=== PATIENT | female | born 1940 | race Caucasian/White ===

== ENCOUNTER → 2017-12-22 09:25 | Outpatient (CLI) | payer MEDICARE, OTHER, SELFPAY ==
[2017-12-22 11:32] LABS: Amphetamine Urine VISTA NEGATIVE (<1000 ng/mL); Barbiturate Urine VISTA NEGATIVE (< 200 ng/mL); Benzodiazepine Urine VISTA NEGATIVE (< 200 ng/mL); Cocaine Urine VISTA NEGATIVE (< 300 ng/mL); Ecstacy Urine VISTA NEGATIVE (< 500 ng/mL); Methadone Urine VISTA NEGATIVE (< 300 ng/mL); PCP Urine VISTA NEGATIVE (< 25 ng/mL); THC Urine VISTA NEGATIVE (< 50 ng/mL); Vista UDS pH Range 6
== END ==
PROVIDERS: Family Provider Family Medicine Geriatric Medicine; PCP Family Medicine Geriatric Medicine; Visit Provider Anesthesiology Pain Medicine
DX: F11.20 Opioid dependence, uncomplicated (principal)
CPT/HCPCS: 80307

== ENCOUNTER → 2018-02-25 15:38 | Outpatient (CLI) | payer MEDICARE, OTHER, SELFPAY | PROVIDERS: Family Provider Family Medicine Geriatric Medicine; PCP Family Medicine Geriatric Medicine; Visit Provider Dermatology | DX: L30.9 Dermatitis, unspecified (principal) | CPT/HCPCS: 36415 ==

== ENCOUNTER → 2018-03-13 13:53 | Outpatient (CLI) | payer MEDICARE, OTHER, SELFPAY | PROVIDERS: Family Provider Family Medicine Geriatric Medicine; PCP Family Medicine Geriatric Medicine; Visit Provider Dermatology | DX: L30.9 Dermatitis, unspecified (principal) ==

== ENCOUNTER → 2018-03-26 14:10 | Outpatient (CLI) | payer MEDICARE, OTHER, SELFPAY ==
--- NOTE | 2018-03-26 14:10 | DT_ITS ---
This patient was seen during an EMR downtime March 23, 2018 - March 30, 2018. This patient may have a combination of paper and electronic documentation or all paper documentation. All documentation is viewable within the e-chart portion of [facility] for each patient visit.
[2018-03-31 05:22] LABS: ALB/GLOB Ratio 1.1 RATIO (0.9-2.4); AST(SGOT) 17 U/L (15-37); Alanine Aminotransfer ALT/SGPT 29 U/L (13-56); Albumin, Serum 3.5 g/dL (3.2-5.0); Alkaline Phosphatase 41 U/L (45-117); BUN 26 mg/dL (7-18); BUN/Creat Ratio 24.1 RATIO (10-20); Calcium,Total 8.5 mg/dL (8.5-10.1); Creatinine, Serum 1.08 mg/dL (0.55-1.02); EST Glomerular Filtration Rate 53 mL/min (>60); Est Glom Filt Rate - Afr Amer 64 mL/min (>60); Globulin 3.3 g/dL (2.2-4.2); Glucose 87 mg/dL (74-106); Potassium 4.3 mmol/L (3.5-5.1); Protein, Total 6.8 g/dL (6.4-8.2); Sodium Level 142 mmol/L (136-145)
[2018-03-31 05:23] LABS: Anion Gap 8 (5-15); Chloride 106 mmol/L (98-107); Thyroid Stim Hormone (TSH) 1.12 uIU/mL (0.358-3.74)
[2018-03-31 05:47] LABS: Hematocrit 40.6 % (37-47); Mean Corpuscular Volume 93.8 fL (81-99); Red Blood Count 4.33 M/mm3 (4.2-5.4); White Blood Count 12.2 K/mm3 (4.4-11.0)
[2018-03-31 05:48] LABS: Absolute Lymphocyte Count 2.98 X10^3/ul (0.83-4.51); Absolute Neutrophil Count 8.1 X10^3/uL (2.0-7.7); Basophil% 0.1 % (0-1); Eosinophil# 0.13 X10^3/uL; Eosinophils% 1.1 % (0-5); Lymphocyte # 2.98 X10^3/ul (4.0); Lymphocyte % 24.4 % (19-41); Mean Platelet Vol. 9.6 fl (6.2-12.0); Monocyte# 0.96 X10^3/uL; Monocyte% 7.8 % (0-10); Neutrophil # 8.09 X10^3/uL (2.7-7.7); Neutrophil % 66.1 % (47-70); POSITIVE COUNT NO; POSITIVE DIFFERENTIAL NO; POSITIVE MORPHOLOGY NO; Platelet Count 210 K/mm3 (150-450); RBC Distribution Width CV 16.4 % (11.6-14.6); RBC Distribution Width SD 56.3 fl (35.1-43.9)
[2018-03-31 05:49] LABS: Basophil# 0.01 X10^3/uL
[2018-03-31 09:43] LABS: Vitamin D,25 Hydroxy 22.1 ng/mL (29.95-100.01)
== END ==
PROVIDERS: Family Provider Family Medicine Geriatric Medicine; PCP Family Medicine Geriatric Medicine; Visit Provider Family Medicine Geriatric Medicine
DX: E11.9 Type 2 diabetes mellitus without complications (principal); E55.9 Vitamin D deficiency, unspecified; I10 Essential (primary) hypertension
CPT/HCPCS: 36415; 80053; 82306; 84443; 85025

== ENCOUNTER → 2018-09-24 10:21 | Outpatient (CLI) | payer MEDICARE, OTHER, SELFPAY ==
[2018-09-24 12:37] LABS: Absolute Lymphocyte Count 1.91 X10^3/ul (0.83-4.51); Absolute Neutrophil Count 3.4 X10^3/uL (2.0-7.7); Basophil# 0.01 X10^3/uL; Basophil% 0.2 % (0-1); Eosinophil# 0.15 X10^3/uL; Eosinophils% 2.5 % (0-5); Hematocrit 39.1 % (37-47); Hemoglobin 12.5 g/dl (12.0-15.0); Lymphocyte # 1.91 X10^3/ul (4.0); Lymphocyte % 31.8 % (19-41); Mean Corpuscular Hgb 30.2 pg (27.0-32.0); Mean Corpuscular Volume 94.4 fL (81-99); Mean Platelet Vol. 9.9 fl (6.2-12.0); Monocyte# 0.52 X10^3/uL; Monocyte% 8.7 % (0-10); Neutrophil % 56.6 % (47-70); Platelet Count 228 K/mm3 (150-450); RBC Distribution Width CV 14.4 % (11.6-14.6); Red Blood Count 4.14 M/mm3 (4.2-5.4)
[2018-09-24 12:39] LABS: POSITIVE COUNT NO; POSITIVE DIFFERENTIAL NO; POSITIVE MORPHOLOGY NO
[2018-09-24 12:52] LABS: Vitamin D,25 Hydroxy 25.7 ng/mL (29.95-100.01)
[2018-09-24 13:02] LABS: ALB/GLOB Ratio 1.1 RATIO (0.9-2.4); AST(SGOT) 18 U/L (15-37); Alanine Aminotransfer ALT/SGPT 23 U/L (13-56); Albumin, Serum 3.7 g/dL (3.2-5.0); Alkaline Phosphatase 47 U/L (45-117); Anion Gap 8 (5-15); BUN 14 mg/dL (7-18); BUN/Creat Ratio 15.6 RATIO (10-20); Calcium,Total 8.8 mg/dL (8.5-10.1); Chloride 105 mmol/L (98-107); EST Glomerular Filtration Rate 65 mL/min (>60); Est Glom Filt Rate - Afr Amer 79 mL/min (>60); Globulin 3.3 g/dL (2.2-4.2); Glucose 88 mg/dL (74-106); Potassium 4.1 mmol/L (3.5-5.1); Sodium Level 142 mmol/L (136-145); Thyroid Stim Hormone (TSH) 0.88 uIU/mL (0.358-3.74)
== END ==
PROVIDERS: Family Provider Family Medicine Geriatric Medicine; PCP Family Medicine Geriatric Medicine; Visit Provider Family Medicine Geriatric Medicine
DX: E11.9 Type 2 diabetes mellitus without complications (principal); E55.9 Vitamin D deficiency, unspecified; I10 Essential (primary) hypertension
CPT/HCPCS: 36415; 80053; 82306; 84443; 85025

== ENCOUNTER → 2018-12-01 07:36 | Outpatient (CLI) | payer MEDICARE, OTHER, SELFPAY ==
--- NOTE | 2018-12-01 07:39 | BI_ITS ---
MAMMOGRAPHY - BILATERAL SCREENING REASON FOR EXAM: Female, 77 years old. Routine annual screening examination. PERTINENT HISTORY: Sister with breast cancer. Remote left excisional breast biopsy and stereotactic breast biopsies. TECHNIQUE: Digital bilateral breast tom (3D mammographic acquisition) in the CC and MLO projections. 2-D mediolateral oblique (MLO) and craniocaudad (CC) views of both breasts were obtained. CAD: Full Field Digital Mammography with Computer Added Detection was performed. COMPARISON: Comparison is made with prior study dated November 04, 2017 and October 17, 2016. FINDINGS: Breast Composition: There are scattered areas of fibroglandular density. There are no dominant masses or suspicious calcifications. A tissue clip marker is seen in the upper lateral portion of the left breast. No other significant abnormalities are identified. There has been no significant change since the prior study. BI/SCREENING MAMM (CAD), BILAT IMPRESSION: Stable bilateral screening mammogram. Yearly follow-up mammogram recommended. (A) ASSESSMENT CATEGORY: BIRADS Category 2: Benign. A letter regarding these results will be sent to the patient by the facility within 30 days. Approximately 10% of breast cancers are not detected by mammography. A normal mammogram should not delay biopsy of a clinically suspicious abnormality. [id number] Electronically Signed: Nolan Erwin MD at 9:05 EST , Service support ,
== END ==
PROVIDERS: Family Provider Family Medicine Geriatric Medicine; PCP Family Medicine Geriatric Medicine; Referring Provider Family Medicine Geriatric Medicine; Visit Provider Family Medicine Geriatric Medicine
DX: Z12.31 Encounter for screening mammogram for malignant neoplasm of breast (principal)
CPT/HCPCS: 77063; 77067

== ENCOUNTER → 2018-12-03 09:49 | Outpatient (CLI) | payer MEDICARE, OTHER, SELFPAY ==
[2018-12-03 11:11] LABS: Amphetamine Urine VISTA NEGATIVE (<1000 ng/mL); Barbiturate Urine VISTA NEGATIVE (< 200 ng/mL); Benzodiazepine Urine VISTA NEGATIVE (< 200 ng/mL); Cocaine Urine VISTA NEGATIVE (< 300 ng/mL); Ecstacy Urine VISTA NEGATIVE (< 500 ng/mL); Methadone Urine VISTA NEGATIVE (< 300 ng/mL); PCP Urine VISTA NEGATIVE (< 25 ng/mL); THC Urine VISTA NEGATIVE (< 50 ng/mL); Vista UDS pH Range 5
== END ==
PROVIDERS: Family Provider Family Medicine Geriatric Medicine; PCP Family Medicine Geriatric Medicine; Referring Provider Anesthesiology Pain Medicine; Visit Provider Anesthesiology Pain Medicine
DX: F11.20 Opioid dependence, uncomplicated (principal)
CPT/HCPCS: 80307

== ENCOUNTER → 2019-03-29 | Outpatient (CLI) | payer MEDICARE, OTHER, SELFPAY ==
[2019-03-29 14:05] LABS: Absolute Lymphocyte Count 2.04 X10^3/ul (0.83-4.51); Absolute Neutrophil Count 3.3 X10^3/uL (2.0-7.7); Basophil# 0.02 X10^3/uL; Basophil% 0.3 % (0-1); Eosinophil# 0.14 X10^3/uL; Eosinophils% 2.3 % (0-5); Hematocrit 36.3 % (37-47); Hemoglobin 11.8 g/dl (12.0-15.0); Lymphocyte # 2.04 X10^3/ul (4.0); Lymphocyte % 34.2 % (19-41); Mean Corp Hgb Conc 32.5 g/gl (32-36); Mean Corpuscular Hgb 29.4 pg (27.0-32.0); Mean Corpuscular Volume 90.5 fL (81-99); Mean Platelet Vol. 10.2 fl (6.2-12.0); Monocyte# 0.48 X10^3/uL; Neutrophil # 3.28 X10^3/uL (2.7-7.7); Platelet Count 207 K/mm3 (150-450); RBC Distribution Width CV 14.1 % (11.6-14.6); RBC Distribution Width SD 46.7 fl (35.1-43.9); Red Blood Count 4.01 M/mm3 (4.2-5.4)
[2019-03-29 14:09] LABS: POSITIVE COUNT NO; POSITIVE DIFFERENTIAL NO; POSITIVE MORPHOLOGY NO
[2019-03-29 14:35] LABS: ALB/GLOB Ratio 1.2 RATIO (0.9-2.4); AST(SGOT) 18 U/L (15-37); Alanine Aminotransfer ALT/SGPT 21 U/L (13-56); Albumin, Serum 3.6 g/dL (3.2-5.0); Alkaline Phosphatase 47 U/L (45-117); Anion Gap 7 (5-15); BUN 21 mg/dL (7-18); BUN/Creat Ratio 20.2 RATIO (10-20); Calcium,Total 8.9 mg/dL (8.5-10.1); Chloride 105 mmol/L (98-107); Creatinine, Serum 1.04 mg/dL (0.55-1.02); EST Glomerular Filtration Rate 55 mL/min (>60); Est Glom Filt Rate - Afr Amer 66 mL/min (>60); Globulin 3.1 g/dL (2.2-4.2); Glucose 104 mg/dL (74-106); Potassium 3.9 mmol/L (3.5-5.1); Protein, Total 6.7 g/dL (6.4-8.2); Sodium Level 140 mmol/L (136-145); Thyroid Stim Hormone (TSH) 0.77 uIU/mL (0.358-3.74); Vitamin D,25 Hydroxy 31.4 ng/mL (29.95-100.01)
== END | disposition home or self-care (01) ==
LOC: POLAB3 13:41
PROVIDERS: Family Provider Family Medicine Geriatric Medicine; PCP Family Medicine Geriatric Medicine; Visit Provider Family Medicine Geriatric Medicine
DX: E11.9 Type 2 diabetes mellitus without complications (principal); E55.9 Vitamin D deficiency, unspecified; I10 Essential (primary) hypertension
CPT/HCPCS: 36415; 80053; 82306; 84443; 85025

== ENCOUNTER → 2019-04-05 | Outpatient (CLI) | payer MEDICARE, OTHER, SELFPAY ==
--- NOTE | 2019-04-05 13:51 | CT_ITS ---
STUDY: LOW DOSE CT LUNG CANCER SCREENING REASON FOR EXAM: Female, 78 years old. TOBACCO ABUSE 3PPWEEK X40 YEARS RADIATION DOSAGE (If Supplied By Facility): CTDIvol = ( 3.02 ) mGy, DLP = ( 95.15 ) mGycm TECHNIQUE: No contrast was administered. Low dose technique was utilized (average mAS-38 and kVp 120). 1.25 mm axial source images with a slice interval of 1.25-mm were reconstructed in lung windows. 2.5 mm axial source images with a slice interval of 2.5-mm were reconstructed in lung windows. 5.0 mm axial source images with a slice interval of 5.0-mm were reconstructed in soft tissue windows. Nodule measured using lung windows on PACS and/or independent workstation with automated measurement of minimum and maximum diameter. Nodule measurement reported as average diameter rounded to the nearest whole number. Growth is defined as an increase ins size of greater than 1.5 mm. COMPARISON: None. NODULES: There is hyperinflation both lungs suggesting COPD. Subsegmental atelectases are noted in the right and left lung bases. There is no demonstrated pleural abnormality. Normal heart and pericardium. Normal mediastinum. Normal hilar regions. Normal unenhanced pulmonary arteries. Normal aorta arch and descending thoracic aorta. Normal osseous structures. There is no demonstrated abnormality of the visualized upper abdomen. CT/Low Dose CT Lung Screening IMPRESSION: Lung-RADS category 2. Benign findings. Recommendation: Routine screening CT scan in one year. IMPORTANT NOTES FOR USE: ACR Lung-RADS Version 1.0 Assessment Categories Release Date: February 14, 2014 Category: Coded 0-4 bases on nodule(s) with highest degree of suspicion. Negative screen is defined as categories 1 and 2; a positive screen is defined as categories 3 and 4. Category 3 and 4A nodules that are unchanged on interval CT should be coded as category 2, and individuals returned to screening in 12 months. Category 4X: Category 3 or 4 nodules with additional imaging findings that increase the suspicion of lung cancer, such as spiculation, GGN that doubles in size in 1 year, enlarged lymph notes, etc. Category Modifiers: S (significant finding unrelated to lung cancer) and C (prior history of treated lung cancer) may be added to the 0-4 Lung-RADS Electronically Signed: Ti Espinal, at 23:47 EDT Tel , Service support ,
== END | disposition home or self-care (01) ==
LOC: CT 13:49
PROVIDERS: Family Provider Family Medicine Geriatric Medicine; PCP Family Medicine Geriatric Medicine; Referring Provider Family Medicine Geriatric Medicine; Visit Provider Family Medicine Geriatric Medicine
DX: Z87.891 Personal history of nicotine dependence (principal)
CPT/HCPCS: G0297

== ENCOUNTER → 2019-04-19 | Outpatient (CLI) | payer MEDICARE, OTHER, SELFPAY ==
[2019-04-21 16:07] LABS: RNP Ab <0.2 AI (0.0-0.9); SJOGREN'S Anti-SS-A test < 0.2 AI (0.0-0.9); SJOGREN'S Anti-SS-B test < 0.2 AI (0.0-0.9); Smith Ab <0.2 AI (0.0-0.9)
[2019-04-23 17:05] LABS: Anti-Nuclear Antibody Test Negative (.); Anti-dsDNA Ab 1 IU/mL (0-9)
== END | disposition home or self-care (01) ==
LOC: LAB 15:19
PROVIDERS: Family Provider Family Medicine Geriatric Medicine; PCP Family Medicine Geriatric Medicine; Referring Provider Dermatology; Visit Provider Dermatology
DX: K11.7 Disturbances of salivary secretion (principal); L43.8 Other lichen planus
CPT/HCPCS: 36415; 86038; 86225; 86235

== ENCOUNTER → 2019-05-14 | Outpatient (CLI) | payer MEDICARE, OTHER, SELFPAY ==
[2019-05-07 11:41] VITALS: BMI 26.4
--- NOTE | 2019-05-14 08:49 | BI_ITS ---
MAMMOGRAPHY - BILATERAL DIAGNOSTIC REASON FOR EXAM: Female, 78 years old. Left lateral breast pain PERTINENT HISTORY: Previous excisional biopsy in the left breast TECHNIQUE: Digital examination. Mediolateral oblique (MLO) and craniocaudad (CC) views of both breasts were obtained. CAD: COMPARISON: 12/01/18 FINDINGS: Breast Composition: There are scattered areas of fibroglandular density. There are no dominant masses or suspicious calcifications. No other significant abnormalities are identified. BI/DIAG MAMM W/CAD, BILAT IMPRESSION: Stable bilateral diagnostic mammogram. ASSESSMENT CATEGORY: BIRADS Category 2: Benign. A letter regarding these results will be sent to the patient by the facility within 30 days. FOLLOW UP RECOMMENDATION: Yearly follow up mammogram recommended. (A) Approximately 10% of breast cancers are not detected by mammography. A normal mammogram should not delay biopsy of a clinically suspicious abnormality. Electronically Signed: Yfn Marinelli MD at 11:09 EDT , Service support ,
== END | disposition home or self-care (01) ==
LOC: OPBI 08:47
PROVIDERS: Family Provider Family Medicine Geriatric Medicine; PCP Family Medicine Geriatric Medicine; Referring Provider Obstetrics & Gynecology; Visit Provider Obstetrics & Gynecology
DX: N64.4 Mastodynia (principal)
CPT/HCPCS: 77066

== ENCOUNTER → 2019-05-28 | Outpatient (CLI) | payer MEDICARE, OTHER, SELFPAY ==
[2019-05-07 11:41] VITALS: BMI 26.4
--- NOTE | 2019-05-28 13:45 | MRI_ITS ---
STUDY: MRI LEFT MIDFOOT WITHOUT CONTRAST REASON FOR EXAM: Female, 78 years old. Osteoarthritis. Posterior tibialis tendinitis. TECHNIQUE: Standardized fat and water weighted pulse sequences were obtained in all 3 orthogonal planes. COMPARISON: Correlation with ankle MRI from the June 02, 2019. FINDINGS: Please see dedicated ankle dictation for additional evaluation. Fluid at the master knot of Serafin (axial image 24 series 8) with proximal hallucis longus tenosynovitis (axial image 18 series 6). Mild/moderate posterior tibialis tendinosis without tear. Normal extensor tendons. Tiny fluid collection at the peroneus retinaculum (axial image 24 series 8). Mild peroneus longus tendinosis with tenosynovitis at the undersurface of the foot (axial images 9 through 12 series 8). Normal peroneus brevis tendon. Ligamentous structures remain intact. Normal calcaneocuboid articulation. Normal talonavicular reticulation. Mild navicular cuneiform joint arthrosis. Mild tarsometatarsal joint arthrosis. Moderate/severe first metatarsophalangeal joint arthrosis. Remaining visualized metatarsophalangeal joints unremarkable. No acute fracture, dislocation or osseous destruction. Middle cuneiform bone marrow edema/contusion. Chronic dorsal navicular avulsion/ossicle. Trace talonavicular joint arthrosis with tiny dorsal ganglion cyst. Minimal subtalar joint fluid with mild focal posterior outpouching. Mild soft tissue swelling. Varicose veins. Moderate plantar fascial thickening without acute edema or tear. Large plantar spur. No solid, cystic or lipomatous soft tissue lesions. Normal muscles of the midfoot/hindfoot. MRI/Lower Ext/No Jt/w/o IMPRESSION: Mild/moderate PTT tendinosis without tear Large plantar spur with chronic interfascial thickening (no acute edema or tear) Middle cuneiform bone marrow edema/contusion Multiple tarsal tunnel varicose veins suggesting potential tarsal tunnel syndrome Mild sinus tarsitis/subtalar ligament sprains with mild sinus Tarsi syndrome Moderate/severe proximal flexor hallucis longus tenosynovitis Mild/moderate osteoarthritic features Mild soft tissue swelling with small volume joint effusions Electronically Signed: Isiah Samayoa DO at 11:17 EDT Tel , Service support ,
== END | disposition home or self-care (01) ==
LOC: MRI 13:11
PROVIDERS: Family Provider Family Medicine Geriatric Medicine; PCP Family Medicine Geriatric Medicine; Referring Provider Podiatrist; Visit Provider Podiatrist
DX: M76.822 Posterior tibial tendinitis, left leg (principal); M19.072 Primary osteoarthritis, left ankle and foot
CPT/HCPCS: 73718

== ENCOUNTER → 2019-06-02 | Outpatient (CLI) | payer MEDICARE, OTHER, SELFPAY ==
[2019-05-07 11:41] VITALS: BMI 26.4
--- NOTE | 2019-06-02 09:34 | MRI_ITS ---
STUDY: MRI LEFT ANKLE WITHOUT CONTRAST REASON FOR EXAM: Female, 78 years old. Left ankle pain. Plantar surface pain. TECHNIQUE: Standardized fat and water weighted pulse sequences were obtained in all 3 orthogonal planes. COMPARISON: None. FINDINGS: Multiple varicose veins extending into the tarsal tunnel (axial images 6 through 16 series 10). Moderate/severe proximal flexor hallucis longus tenosynovitis (axial image 10 series 10). Normal posterior tibialis tendon. Normal flexor digitorum tendon. Normal peroneus longus/brevis tendons. Normal extensor tendons. Normal Achilles tendon. Moderate chronic plantar fascial thickening. Large plantar spur. No significant edema at the plantar calcaneal insertion. Plantar fascia remains intact. Normal muscles of the midfoot/hindfoot. Mild tibiotalar joint arthrosis. Normal subtalar articular cartilage. Normal calcaneocuboid articular cartilage. Dorsal navicular ossicle versus chronic avulsion (sagittal image 10 series 7). Particular cartilage preserved at the talonavicular articulation. Mild navicular cuneiform joint arthrosis. Mild tarsometatarsal joint arthrosis. Talar dome intact. No acute fracture line. No dislocation. No cortical destruction. Bone marrow edema/contusion at the medial cuneiform (axial images 11 and 12 series 10). Syndesmotic ligaments intact. Lateral ligament complex intact. Normal deltoid ligament. Normal spring ligament. Mild sinus Tarsi/subtalar ligament sprains with mild sinus Tarsi syndrome. Normal Lisfranc ligament. Mild soft tissue swelling. No solid, cystic or lipomatous soft tissue lesions. Small volume tibiotalar/subtalar joint effusion. MRI/Lower Ext Joint Only (Routine) IMPRESSION: Large plantar spur with chronic interfascial thickening (no acute edema or tear) Middle cuneiform bone marrow edema/contusion Multiple tarsal tunnel varicose veins suggesting potential tarsal tunnel syndrome Mild sinus tarsitis/subtalar ligament sprains with mild sinus Tarsi syndrome Moderate/severe proximal flexor hallucis longus tenosynovitis Mild midfoot osteoarthritic features Mild soft tissue swelling with small volume joint effusions Electronically Signed: Isiah Samayoa DO at 10:59 EDT Tel , Service support ,
== END | disposition home or self-care (01) ==
LOC: MRI 09:32
PROVIDERS: Family Provider Family Medicine Geriatric Medicine; PCP Family Medicine Geriatric Medicine; Referring Provider Podiatrist; Visit Provider Podiatrist
DX: M76.822 Posterior tibial tendinitis, left leg (principal)
CPT/HCPCS: 73721

== ENCOUNTER → 2019-06-16 | Outpatient (CLI) | payer MEDICARE, OTHER, SELFPAY ==
[2019-05-07 11:41] VITALS: BMI 26.4
[2019-06-16 15:48] LABS: Amphetamine Urine VISTA NEGATIVE (<1000 ng/mL); Barbiturate Urine VISTA NEGATIVE (< 200 ng/mL); Benzodiazepine Urine VISTA NEGATIVE (< 200 ng/mL); Cocaine Urine VISTA NEGATIVE (< 300 ng/mL); Ecstacy Urine VISTA NEGATIVE (< 500 ng/mL); Methadone Urine VISTA NEGATIVE (< 300 ng/mL); PCP Urine VISTA NEGATIVE (< 25 ng/mL); THC Urine VISTA NEGATIVE (< 50 ng/mL); Vista UDS pH Range 5
== END | disposition home or self-care (01) ==
LOC: LAB 14:05
PROVIDERS: Family Provider Family Medicine Geriatric Medicine; PCP Family Medicine Geriatric Medicine; Referring Provider Anesthesiology Pain Medicine; Visit Provider Anesthesiology Pain Medicine
DX: F11.20 Opioid dependence, uncomplicated (principal)
CPT/HCPCS: 80307

== ENCOUNTER 2019-07-08 14:00 | Outpatient (RCR) | payer MEDICARE, OTHER, SELFPAY ==
[2019-05-07 11:41] VITALS: BMI 26.4
--- NOTE | 2019-06-17 12:00 | HP.PTEVAL_ITS ---
Patient's Visit Information JOANNA PRITCHARD is a 78 year old F referred to Physical Therapy by Edmar Vargas DPM with a diagnosis of Posterior tibial tendonitis/tendonosis. Date of Evaluation: 06/17/19 Physical Therapist: Manfred Newsome DPT - Visit Plan Frequency: 2x /Week Duration: 4-6 Weeks Plan: Start with DN, US, stretching. Progress to eccentric strengthening once symptoms have started to reduce. - Subjective Findings: Pt. is here today for her initial evaluation with diagnosis of L posterior tibial tendonitis. Pt. reports having increased pain for ~6 weeks. No mech of injury. Pt. denies N/T in either LEs. Pt. reports having pain starting in her medial calf and going down her leg to her arch of her foot. Pt. reports not doing any exercises for her ankle. Pt. does walk ~3 miles a day. Pt. reports increased pain with standing and walking, but no pain at rest. No pain with sleeping. Pt. has had an xray showing arthritis in her foot and ankle. Pt. reports having an injection which did not help. Pt. is hopeful to reduce symptoms in order to get back to cooking/standing and walking without increase in symptoms. - Pain L ankle Pain Intensity (Out of 10): 3 Pain Intensity Range: 1, 6 - Objective POSTURE: Pt. has normal wt. shift in stance. Pt. has over pronation in stnace and worse in SLS. PALPATION: Pt. has increased tenderness along post tib tendon and insertion. Pt. has pain into post tib muscle as well. NEURO: normal throughout bilateral LEs. ROM: L ankle- DF 10deg, PF 48deg, INV 18deg, EVR 16deg. MMT: Pt. has 4+/5 throughout ankle musculature, but has increased pain with PF+INV. GAIT: Pt. has over pronation with ambulation without shoes one. Pt. has increased L ankle EVR in stance as well. STAIRS: no issues, early heel off with descending. - Goals Goal 1:: Pt. to be I with HEP. Goal Time Frame: 4-6 Weeks Goal 2:: Pt. to ambulate household distances without increase in symptoms. Goal Time Frame: 4-6 Weeks Goal 3:: Pt. to walk upto 3 miles for recreational exercises without increase in symptoms. Goal Time Frame: 4-6 Weeks Goal 4:: Pt. to have increased L ankle strength by 1/2 grade of all effected musculature. Goal Time Frame: 4-6 Weeks Goal 5:: Pt. to have increased L ankle ROM symmetrical to R. Goal Time Frame: 4-6 Weeks - Rehabilitation Potential Physical Therapy Diagnosis: Pt. appears to have L posterior tibial tendonosis. Pt. has increased symptoms with palpation along post tib tendon, increased navicular drop in SLS and over prontation with gait.Pt. would benefit from PT to decrease symptoms, promote ankle stability and increase intrinsic foot strengt hening. Rehabilitation Potential: Good - Anticipated Interventions Patient/Client Instruction: Educate patient on: Condition, Plan of Care, Risk Factors, Benefits of Fitness Program For the Purpose of:: To facilitate caregiver knowledge, To improve self management, To prevent re-injury, To improve ability to perform tasks related to life management, To improve tolerance to ADL's Therapeutic Exercise to Include: Strength training, Power training, Endurance training, Balance training, Gait and locomotor training, Passive ROM, Active ROM, Scapular Strength/Stabilization For the Purpose of:: To decrease pain, To increase ROM, To improve nutrient delivery to tissue, To increase oxygenation perfusion, To improve muscle performance and motor function, To improve gait and locomotor functions, To improve health of tissue, To decrease soft tissue restriction Manual Therapy Techniques to Include: Mobilization, Functional dry needling, Soft tissue mobilization For the Purpose of:: To decrease pain, To decrease swelling/inflammation, To increase ROM, To improve nutrient delivery to tissue, To increase oxygenation perfusion, To improve muscle performance and motor function Cryotherapy (ice pack, ice massage): Yes Ultrasound (thermal/non thermal): Yes Thank you for the opportunity to evaluate your patient. For Medicare and Medicare HMO plans, please review the plan of care and approve it. It will need to be FAXED BACK to us at [phone] for Medicare purposes. For Medicare only, by signing this I certify the plan of care. Please let me know if there are questions or concerns regarding this plan of care. Physician Signature: Date:
--- NOTE | 2019-11-19 08:13 | HP.PTDCNRP_ITS ---
HP - Discharge Summary (1) - Patient Information JOANNA PRITCHARD was seen in my office for initial evaluation on 06/17/19. The following Plan of Care was established for this patient: Initial Frequency: 2x /Week Initial Duration: 4-6 Weeks - Anticipated Interventions Patient/Client Instruction: Educate patient on: Condition, Plan of Care, Risk Factors, Benefits of Fitness Program For the Purpose of:: To facilitate caregiver knowledge, To improve self management, To prevent re-injury, To improve ability to perform tasks related to life management, To improve tolerance to ADL's Therapeutic Exercise to Include: Strength training, Power training, Endurance training, Balance training, Gait and locomotor training, Passive ROM, Active ROM, Scapular Strength/Stabilization For the Purpose of:: To decrease pain, To increase ROM, To improve nutrient delivery to tissue, To increase oxygenation perfusion, To improve muscle performance and motor function, To improve gait and locomotor functions, To improve health of tissue, To decrease soft tissue restriction Manual Therapy Techniques to Include: Mobilization, Functional dry needling, Soft tissue mobilization For the Purpose of:: To decrease pain, To decrease swelling/inflammation, To increase ROM, To improve nutrient delivery to tissue, To increase oxygenation pe rfusion, To improve muscle performance and motor function Cryotherapy (ice pack, ice massage): Yes Ultrasound (thermal/non thermal): Yes This patient was last seen in our office 06/17/19. Pertinent comments regarding their Physical therapy will appear below: Pt. did well, she is no longer having any issues. Pt. will be DC from PT at this point in time. At this point I will be discontinuing this patient from physical therapy. I would be happy to see this patient again in the future if found appropriate by the physician. Thank you! Manfred Newsome, SORINT
== END 2019-07-08 19:00 | disposition home or self-care (01) ==
LOC: PT 14:00
PROVIDERS: Family Provider Family Medicine Geriatric Medicine; PCP Family Medicine Geriatric Medicine; Referring Provider Podiatrist; Visit Provider Podiatrist
DX: M76.829 Posterior tibial tendinitis, unspecified leg (principal)
CPT/HCPCS: 97161

== ENCOUNTER → 2019-09-27 14:08 | Outpatient (CLI) | payer MEDICARE, OTHER, SELFPAY ==
[2019-05-07 11:41] VITALS: BMI 26.4
[2019-09-27 16:56] LABS: Absolute Neutrophil Count 3.9 X10^3/uL (2.0-7.7); Basophil# 0.02 X10^3/uL; Basophil% 0.3 % (0-1); Eosinophil# 0.35 X10^3/uL; Hematocrit 37.8 % (37-47); Mean Corp Hgb Conc 31.7 g/dL (32-36); Mean Corpuscular Hgb 29.1 pg (27.0-32.0); Mean Corpuscular Volume 91.5 fL (81-99); Mean Platelet Vol. 9.8 fl (6.2-12.0); Monocyte# 0.63 X10^3/uL; NRBC Flagged by Analyzer 0 % (0-5); Neutrophil # 3.88 X10^3/uL (2.7-7.7); Neutrophil % 55.4 % (47-70); Platelet Count 240 K/mm3 (150-450); RBC Distribution Width CV 14.5 % (11.6-14.6); RBC Distribution Width SD 49.1 fl (35.1-43.9); Red Blood Count 4.13 M/mm3 (4.2-5.4)
[2019-09-27 17:36] LABS: Vitamin D,25 Hydroxy 23.3 ng/mL (29.95-100.01)
[2019-09-27 19:16] LABS: ALB/GLOB Ratio 1.2 RATIO (0.9-2.4); AST(SGOT) 17 U/L (15-37); Alanine Aminotransfer ALT/SGPT 22 U/L (13-56); Albumin, Serum 3.7 g/dL (3.2-5.0); Alkaline Phosphatase 48 U/L (45-117); Anion Gap 7 (5-15); BUN 26 mg/dL (7-18); BUN/Creat Ratio 22.8 RATIO (10-20); Calcium,Total 9.1 mg/dL (8.5-10.1); Chloride 109 mmol/L (98-107); Creatinine, Serum 1.14 mg/dL (0.55-1.02); EST Glomerular Filtration Rate 49 mL/min (>60); Est Glom Filt Rate - Afr Amer 60 mL/min (>60); Globulin 3.1 g/dL (2.2-4.2); Glucose 99 mg/dL (74-106); Potassium 3.7 mmol/L (3.5-5.1); Protein, Total 6.8 g/dL (6.4-8.2); Sodium Level 143 mmol/L (136-145); Thyroid Stim Hormone (TSH) 1.18 uIU/mL (0.358-3.74)
== END ==
PROVIDERS: Family Provider Family Medicine Geriatric Medicine; PCP Family Medicine Geriatric Medicine; Visit Provider Family Medicine Geriatric Medicine
DX: E11.9 Type 2 diabetes mellitus without complications (principal); E55.9 Vitamin D deficiency, unspecified; I10 Essential (primary) hypertension
CPT/HCPCS: 36415; 80053; 82306; 84443; 85025

== ENCOUNTER → 2019-10-29 06:06 | Outpatient (CLI) | payer MEDICARE, OTHER, SELFPAY ==
[2019-10-07 11:50] VITALS: BMI 27.4
--- NOTE | 2019-10-29 06:07 | ECHOD_ITS ---
Reason For Study: CP Procedure This was a 2D Doppler, Color Flow transthoracic echocardiogram. Exam performed in department. Left Ventricle Normal LV size. Left ventricular systolic function is normal. The estimated ejection fraction is 65 %. No evidence for diastolic dysfunction. No regional wall motion abnormalities noted. Right Ventricle Normal RV size. Normal systolic function. Atria Normal left atrium. Normal right atrium. No doppler evidence for ASD. Mitral Valve There is no mitral annular calcification. Normal mitral valve. Trivial mitral valve insufficiency. Tricuspid Valve Normal tricuspid valve. Trivial tricuspid valve insufficiency. Aortic Valve Trisinus/trileaflet aortic valve. Normal aortic valve. Pulmonic Valve The pulmonic valve is not well visualized. Mild (1+) pulmonic valve insufficiency. Great Vessels The aortic root is not well visualized. Pericardium/Pleural No pericardial effusion. MMode/2D Measurements & Calculations LVIDd: 4.0 cm IVSd: 1.3 cm LA dimension: 3.6 cm LVIDs: 2.3 cm LVPWd: 1.1 cm RVDd: 4.3 cm FS: 41.8 % LAV(MOD-bp): 44.8 ml LA A4 area: 19.4 cm2 RA A4 area: 15.3 cm2 LAV(MOD-bp) Indexed: 23.6 ml/m2 LAV(MOD-sp2): 34.4 ml LAV(MOD-sp4): 58.2 ml Time Measurements MV dec time: 0.24 sec Doppler Measurements & Calculations MV E max dima: 64.9 cm/sec Lat Peak E' Dima: 12.6 cm/sec Med Peak E' Dima: 6.0 cm/sec MV A max dima: 75.5 cm/sec E/E' lat: 5.2 E/E' med: 10.8 MV E/A: 0.86 MV V2 max: 82.8 cm/sec MV P1/2t max dima: 71.8 cm/sec Ao V2 max: 105.3 cm/sec MV max P.7 mmHg MV P1/2t: 98.8 msec Ao max P.4 mmHg MV V2 mean: 45.4 cm/sec MV dec slope: 213.0 cm/sec2 MV mean P.97 mmHg MVA(P1/2t): 2.2 cm2 MV V2 VTI: 22.8 cm LV V1 max: 76.6 cm/sec PA V2 max: 103.0 cm/sec LV V1 max P.3 mmHg Interpretation Summary Left ventricular systolic function is normal. The estimated ejection fraction is 65 %. Trivial mitral valve insufficiency. Trivial tricuspid valve insufficiency. Mild (1+) pulmonic valve insufficiency. No evidence for diastolic dysfunction. Ordering Physician: Santos Cervantes Referring Physician: Santos Cervantes Performed By: Jeremy Hopper RCS
--- NOTE | 2019-10-29 12:42 | STRESSREP_ITS ---
Stress Test Report Date: 10-29-2019 Procedure: Exercise tolerance test/imaging study Indications: Chest pain Consent: Per the patient Procedure: The patient exercised on a Mason protocol for 6 minutes completing Stage II achieving a peak heart rate of 144 bpm (100 % predicted maximal heart rate) with a peak blood pressure 172/62 mmHg and a peak MET capacity of 7 METs. The baseline ECG demonstrated sinus bradycardia. The peak exercise ECG demonstrated approximately 1 to 2 mm of horizontal/downsloping ST segment depression in leads II, III, aVF, and V4 through V6 with resolution towards baseline beginning by 1 minute in recovery. There were occasional PACs and repetitive PACs in recovery and a rare PVC in recovery. The functional capacity was considered average. There was no complaint of chest discomfort during exercise or recovery. The examination was discontinued secondary to dyspnea. Impression: 1. Technically adequate (percent predicted maximal heart rate greater than 85%) exercise tolerance test 2. Peak exercise ECG with approximately 1 to 2 mm of horizontal/downsloping ST segment depression in leads II, III, aVF, and V4 through V6 with resolution towards baseline beginning by 1 minute in recovery 3. There were occasional PACs and repetitive PACs in recovery and a rare PVC in recovery 4. Nuclear images pending Myocardial perfusion imaging study: Technique: The patient was injected with 10.8 mCi of technetium 99m Cardiolite and subsequently rest SPECT Cardiolite nuclear imaging was obtained in the horizontal long, vertical long, and short axis views. The patient exercised on a Mason protocol for 6 minutes completing Stage II achieving a peak heart rate of 144 bpm (100 % predicted maximal heart rate) with a peak blood pressure 172/62 mmHg and a peak MET capacity of 7 METs. The patient was injected with 32.5 mCi of technetium 99m Cardiolite and subsequently stress SPECT Cardiolite nuclear imaging was obtained in the horizontal long, vertical long, and short axis views. A gated Cardiolite study at peak stress was obtained. Interpretation: Rest and stress SPECT Cardiolite nuclear imaging status post realignment, normalization, and attenuation correction, demonstrates rest and stress SPECT current nuclear imaging demonstrate an area of diminished tracer uptake near the apical segments and at rest there is also notation of areas of diminished tracer uptake in the distal anterior segments which appear to improve status post stress. There is end systolic thickening and brightening. The gated Cardiolite study demonstrates myocardial thickening and inward wall motion. The reported LVEF is 75 %. Impression: 1. Rest and stress SPECT Cardiolite nuclear imaging demonstrate myocardial perfusion changes appearing compatible with the effects of physiologic apical thinning as well as shifting soft tissue attenuation/artifact being somewhat more prominent at rest as opposed to stress with no myocardial perfusion changes considered diagnostic for associated stress-induced myocardial ischemia. 2. The gated Cardiolite study reports an LVEF of 75 %. This note was generated with [employer] software. It may contain incorrect words, spelling, and punctuation that were not noted in checking the note before signing.
== END ==
PROVIDERS: Family Provider Family Medicine Geriatric Medicine; PCP Family Medicine Geriatric Medicine; Referring Provider Internal Medicine Cardiovascular Disease; Visit Provider Internal Medicine Cardiovascular Disease
DX: R07.9 Chest pain, unspecified (principal)
CPT/HCPCS: 78452; 93017; 93306; A9500; A4216

== ENCOUNTER 2019-11-09 07:47 | Day surgery (SDC) | payer MEDICARE, OTHER, SELFPAY ==
[2019-10-07 11:50] VITALS: BMI 27.4
[2019-11-02 10:46] VITALS: BMI 26.4
--- NOTE | 2019-11-02 10:52 | RAD_ITS ---
STUDY: X-RAY CHEST REASON FOR EXAM: Female, 78 years old. CHEST PAIN. ABNORMAL STRESS TEST. GETTING HEART CATH FRIDAY. TECHNIQUE: PA and lateral views of the chest. COMPARISON: None. FINDINGS: There are minimal streaky fibrotic changes of the left lung base. There is no demonstrated pleural abnormality. Normal size heart. Normal mediastinum and cecilia. Normal visualized pulmonary arteries. There are calcified plaques of the thoracic aorta. Normal visualized thoracic spine. Normal visualized ribs, clavicles, and shoulders. There is no demonstrated abnormality of the visualized soft tissue structures of the upper abdomen. RAD/Chest PA and Lateral IMPRESSION: Calcified plaques of the thoracic aorta. Streaky fibrotic changes of the left lung base. No acute cardiopulmonary disease process is noted. Electronically Signed: Jens Steiner MD at 23:15 EST , Service support ,
[2019-11-02 11:59] LABS: Partial Thromboplast Time 26.9 Seconds (24.1-36.2); Prothrombin Time (Protime)PT. 13.2 SECONDS (11.7-14.9)
[2019-11-02 12:00] LABS: Hematocrit 38.2 % (37-47); Hemoglobin 12.2 g/dL (12.0-15.0); Mean Corp Hgb Conc 31.9 g/dL (32-36); Mean Corpuscular Hgb 29.5 pg (27.0-32.0); Mean Corpuscular Volume 92.5 fL (81-99); Mean Platelet Vol. 9.8 fl (6.2-12.0); Platelet Count 216 K/mm3 (150-450); RBC Distribution Width CV 14.2 % (11.6-14.6); RBC Distribution Width SD 48.2 fl (35.1-43.9); Red Blood Count 4.13 M/mm3 (4.2-5.4); White Blood Count 5.5 K/mm3 (4.4-11.0)
[2019-11-02 12:07] LABS: Anion Gap 3 (5-15); BUN 18 mg/dL (7-18); BUN/Creat Ratio 18.3 RATIO (10-20); Calcium,Total 8.9 mg/dL (8.5-10.1); Chloride 108 mmol/L (98-107); Creatinine, Serum 0.98 mg/dL (0.55-1.02); EST Glomerular Filtration Rate 58 mL/min (>60); Est Glom Filt Rate - Afr Amer 71 mL/min (>60); Glucose 98 mg/dL (74-106); Potassium 3.7 mmol/L (3.5-5.1); Sodium Level 140 mmol/L (136-145)
[2019-11-08 09:41] VITALS: BMI 27.4
--- NOTE | 2019-11-09 08:51 | PCM.HP.BLA ---
<Ivana Pond M - Last Filed: 11/09/19 08:51> History and Physical Date of Admission: 11/09/19 This is a 78-year-old white female who presents today for a heart cath for an abnormal stress test. She recently established with us for concerns of chest discomfort which she describes as somewhat left upper quadrant/left lower chest as well as left facial/jaw discomfort superimposed upon a history of hyperlipidemia and hypertension. She states that she has had episodes in the past where she gets a left upper quadrant/left lower chest sharp discomfort that appears to radiate to her back and transiently take her breath away. These events are random. They are not necessarily associated with nausea, emesis, diaphoresis, or change in her respiratory pattern. They are not associated with any obvious change in her underlying cardiac rate or rhythm and she has had no near syncope or syncope. She states they can be associated with a left facial/left jaw discomfort as if her teeth are going to fall out . She denies any orthopnea or PND. She has not had lower extremity peripheral pitting edema. She notes at other times she may sense a palpitation. She had an ECG through the [facility] system in the past. Based upon her previous ECG that appeared to be dated 01/25/2015 it was interpreted as normal sinus rhythm. She had a follow-up ECG in the office today. She had sinus rhythm with no acute ECG changes. It appears that she had a stress echocardiogram performed through the [facility] on 05-19-2014. At that time according to the report the indication was for an abnormal ECG exercise tolerance test and her examination demonstrated an abnormal ECG on exercise tolerance test with the exercise stress echo being considered negative with the left ventricular systolic function considered normal with an LVEF of 60% with a comment of trivial MR and trivial TR and mild aortic valve sclerosis. Her [facility] medical records suggested that she had a positive stress ECG test which was considered a false positive at the time. She states that she was to have follow-up testing over the years but this was never completed. She underwent a stress test which at peak exercise the ECG had approximately 1 to 2 mm of horizontal/downsloping ST segment depression in leads II, III, aVF, and V4 through V6 with resolution towards baseline beginning by 1 minute in recovery. Nuclear images demonstrated rest and stress SPECT Cardiolite nuclear imaging demonstrate myocardial perfusion changes appearing compatible with the effects of physiologic apical thinning as well as shifting soft tissue attenuation/artifact being somewhat more prominent at rest as opposed to stress with no myocardial perfusion changes considered diagnostic for associated stress-induced myocardial ischemia. 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 Accompanied by: Allergies latex Adverse Reaction (Verified 10/07/19 11:51) Vomiting Medications See chart PFSH Medical History GERD (gastroesophageal reflux disease) (Chronic) Chest pain (Acute) Palpitations (Acute) Mixed hyperlipidemia (Chronic) Essential hypertension (Chronic) Lumbar spinal stenosis (Chronic) Opioid dependence (Chronic) History of benign breast biopsy (Resolved) Small bowel obstruction (Resolved) Surgical History H/O oophorectomy (Resolved) H/O total hysterectomy (Resolved) Hx of cholecystectomy (Resolved) Family History Sister Breast cancer Social History (Updated 10/07/19 @ 12:54 by Santos Cervantes MD) Smoking Status: Former smoker second hand exposure: No alcohol intake: current alcohol intake frequency: a few times a month substance use type: does not use caffeine: Yes Type: coffee Number of servings: 1 seatbelt use: always do you feel safe at home: Yes ROS Const Const: Negative for fatigue, weakness, frequent falls, excessive sweating, weight gain or weight loss Eyes Eyes: Negative for transient loss of vision, blurry vision or change in vision ENT ENT: Positive for dizziness (random while at rest); negative for balance problems Cardio Chest Pain: Yes Character: sharp (radiated to Lt jaw and feels like my teeth are going to fall out) Onset: at rest, exercise Location: other (below the Lt Breast into back) Duration: minutes (1), brief Palpitations: No Edema: None Muscle aches with walking: None Resp Respiratory: Negative for SOB with activity or SOB at rest GI GI: Negative vomiting or vomiting blood/hematemesis : Negative for hematuria Musc Musc: Negative for muscle aches/ myalgia, muscle weakness, joint pain or balance problems Skin Skin: Negative non-healing lesions or rash Neuro Neuro: Positive for dizziness (random while at rest) and lightheadedness (random while at rest); negative for orthostatic symptoms, frequent falls, weakness or blurry vision Turner Hematologic/Lymphatic: Negative for easy bleeding Endo Endo: Negative for fatigue or excessive sweating Psych Psych: Negative for anxiety or depression Allergy Allergy/Immunology: Negative for hives, Negative for rash Cardiology Exam Const Appearance: cooperative, healthy appearing, comfortable, no acute distress, well developed and well groomed Nutritional Appearance: average body habitus Orientation: alert, awake and oriented x3 Head Head: normal to inspection, normocephalic and atraumatic Ears: hearing grossly normal bilaterally Nose: external nose normal Face and Sinus: face symmetric Mouth: oral mucosae normal Teeth and gingiva: fair dentition Eyes Eyelids: eyelids normal Conjunctivae: conjunctivae normal Pupils: PERRL EOM: EOM intact bilaterally Neck Neck: normal visual inspection and full ROM Carotids: normal carotid upstroke Chest Chest inspection: normal inspection of the chest, symmetric chest movement and normal respiratory effort Auscultation: Bilateral: Clear to Auscultation Cardio Palpation: normal PMI Rate: regular rate Rhythm: regular rhythm Heart sounds: S1 normal and S2 normal GI GI: normal to inspection, soft and bowel sounds present Neuro General: alert, awake, oriented x3 and moves all extremities Skin Skin: no rashes or lesions noted Extremities Pulses: Normal: Right Radial Pulse, Left Radial Pulse Lower Extremity Edema: None: Bilateral Psych Psychological: normal affect Assessment & Plan 1. Chest pain, unspecified R07.9 Plan Based upon abnormal stress test and continued chest pain, she will undergo a cardiac cath. She will follow up accordingly after. <Santos Cervantes - Last Filed: 11/09/19 09:39> History and Physical I have re-examined the patient. There are no clinical changes since date of exam.
--- NOTE | 2019-11-09 10:42 | CL.D_ITS ---
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 The risks and benefits of the procedure as well as a full d escription of our services here and current unavailability of surgical backup were fully explained to the patient and/or their significant other prior to the catheterization. The Timeout was completed, verifying the correct patient and procedure. The patient's procedural site was prepped and draped in the usual fashion. Local anesthetic was given subcutaneously to right radial region with Lidocaine 2% . Using a modified Seldinger technique, arterial access was obtained via the right radial artery, a 6 Fr sheath was inserted. Right Coronary Artery selective angiography was then performed in multiple v iews using a 5 Fr. 4.0 Phoenix catheter. Left Coronary Artery selective angiography was performed in mu ltiple views using a 5 Fr. 4.0 Phoenix catheter. Left Ventriculography was performed in LOYA projection using a 5 Fr. Pigtail catheter. LV to AO pullback pressures were then recorded.The arterial sheath was pulled and a TR Band was applied for hemostasis CORONARY ANGIOGRAPHY DOMINANCE: Right Dominant LEFT HEART ASSESSMENT Left Ventricular Ejection Fraction: by LV Gram 55 % Normal LV wall motion Normal Left Ventricular End Diastolic Pressure LVEDP: 12 mmHg LEFT MAIN: Angiographically normal LEFT ANTERIOR DESCENDING ARTERY: Angiographically normal MID LAD: Mild calcification CIRCUMFLEX ARTERY: Angiographically normal RIGHT CORONARY ARTERY: Mild calcification PROX RCA: Mild luminal irregularities AORTIC ROOT: Angiographically normal COMPLICATIONS No Complications PROCEDURE MEDICATIONS Fentanyl 50 mcg IV Versed 1 mg IV Oxygen: 2 L/min via nasal cannula Heparin diluted in 23cc Heparinized saline. Patient given 10cc IA of this solution. 11/09/2019 09:54: 20 Verapamil 2.5mg, Ntg 100mcgs, 2000 units of Heparin diluted in 23cc Heparinized saline. Patient give n 10cc IA of this solution. 11/09/2019 09:54:20 SUMMARY OF HEMODYNAMIC DATA Time AIR REST ECG 08:10:32 AO 146/66 (98) SA 09:56:33 LV 170/-3, 15 10:03:38 LV 156/-4, 12 10:03:45 LV 158/-5, 14 10:04:48 LVp 173/-13, 16 10:04:56 AOp 161/58 (100) 10:05:01 Signed By Santos Cervantes MD On 11/09/2019 10:41:40 Santos Cervantes MD
== END 2019-11-09 12:50 | disposition home or self-care (01) ==
LOC: CLSP 07:48
PROVIDERS: Family Provider Family Medicine Geriatric Medicine; PCP Family Medicine Geriatric Medicine; Referring Provider Internal Medicine Cardiovascular Disease; Visit Provider Internal Medicine Cardiovascular Disease
DX: I25.10 Atherosclerotic heart disease of native coronary artery without angina pectoris (principal); K21.9 Gastro-esophageal reflux disease without esophagitis; E78.2 Mixed hyperlipidemia; I10 Essential (primary) hypertension; M48.061 Spinal stenosis, lumbar region without neurogenic claudication; Z87.19 Personal history of other diseases of the digestive system; Z90.49 Acquired absence of other specified parts of digestive tract; Z79.82 Long term (current) use of aspirin; Z79.899 Other long term (current) drug therapy; Z87.891 Personal history of nicotine dependence; R07.9 Chest pain, unspecified
CPT/HCPCS: 36415; 71046; 80048; 85027; 85610; 85730; 93458; 99152; 99153; J7040; Q9967; C1769; C1894

== ENCOUNTER → 2020-03-09 14:02 | Outpatient (CLI) | payer MEDICARE, OTHER, SELFPAY ==
[2019-12-30 10:40] VITALS: BMI 27.4
[2020-03-09 14:57] LABS: Amphetamine Urine VISTA NEGATIVE (<1000 ng/mL); Barbiturate Urine VISTA NEGATIVE (< 200 ng/mL); Benzodiazepine Urine VISTA NEGATIVE (< 200 ng/mL); Cocaine Urine VISTA NEGATIVE (< 300 ng/mL); Ecstacy Urine VISTA NEGATIVE (< 500 ng/mL); Methadone Urine VISTA NEGATIVE (< 300 ng/mL); PCP Urine VISTA NEGATIVE (< 25 ng/mL); THC Urine VISTA NEGATIVE (< 50 ng/mL); Vista UDS pH Range 5
== END ==
PROVIDERS: PCP Family Medicine Geriatric Medicine; Visit Provider Anesthesiology Pain Medicine
DX: F11.20 Opioid dependence, uncomplicated (principal)
CPT/HCPCS: 80307

== ENCOUNTER → 2020-03-30 15:00 | Outpatient (CLI) | payer MEDICARE, OTHER, SELFPAY ==
[2019-12-30 10:40] VITALS: BMI 27.4
[2020-03-30 15:46] LABS: Absolute Lymphocyte Count 2.02 X10^3/uL (0.83-4.51); Absolute Neutrophil Count 3.2 X10^3/uL (2.0-7.7); Basophil# 0.03 X10^3/uL; Basophil% 0.5 % (0-1); Eosinophil# 0.13 X10^3/uL; Eosinophils% 2.2 % (0-5); Hematocrit 37.4 % (37-47); Hemoglobin 11.8 g/dL (12.0-15.0); Lymphocyte # 2.02 X10^3/ul (4.0); Lymphocyte % 34.2 % (19-41); Mean Corp Hgb Conc 31.6 g/dL (32-36); Mean Corpuscular Hgb 29.6 pg (27.0-32.0); Mean Platelet Vol. 9.9 fl (6.2-12.0); Monocyte# 0.49 X10^3/uL; Monocyte% 8.3 % (0-10); NRBC Flagged by Analyzer 0 % (0-5); Neutrophil # 3.23 X10^3/uL (2.7-7.7); Neutrophil % 54.6 % (47-70); Platelet Count 222 K/mm3 (150-450); RBC Distribution Width CV 14.1 % (11.6-14.6); RBC Distribution Width SD 48.3 fl (35.1-43.9); Red Blood Count 3.98 M/mm3 (4.2-5.4); White Blood Count 5.9 K/mm3 (4.4-11.0)
[2020-03-30 16:07] LABS: ALB/GLOB Ratio 1.1 RATIO (0.9-2.4); AST(SGOT) 20 U/L (15-37); Alanine Aminotransfer ALT/SGPT 22 U/L (13-56); Albumin, Serum 3.7 g/dL (3.2-5.0); Alkaline Phosphatase 46 U/L (45-117); Anion Gap 6 (5-15); BUN 23 mg/dL (7-18); BUN/Creat Ratio 18.7 RATIO (10-20); Calcium,Total 8.8 mg/dL (8.5-10.1); Chloride 108 mmol/L (98-107); Creatinine, Serum 1.23 mg/dL (0.55-1.02); EST Glomerular Filtration Rate 45 mL/min (>60); Est Glom Filt Rate - Afr Amer 54 mL/min (>60); Globulin 3.3 g/dL (2.2-4.2); Glucose 118 mg/dL (74-106); Potassium 4.1 mmol/L (3.5-5.1); Sodium Level 142 mmol/L (136-145); Thyroid Stim Hormone (TSH) 0.75 uIU/mL (0.358-3.74)
== END ==
PROVIDERS: PCP Family Medicine Geriatric Medicine; Visit Provider Family Medicine Geriatric Medicine
DX: E11.9 Type 2 diabetes mellitus without complications (principal); E55.9 Vitamin D deficiency, unspecified; I10 Essential (primary) hypertension
CPT/HCPCS: 36415; 80053; 82306; 84443; 85025

== ENCOUNTER → 2020-05-04 13:38 | Outpatient (CLI) | payer MEDICARE, OTHER, SELFPAY ==
[2019-12-30 10:40] VITALS: BMI 27.4
--- NOTE | 2020-05-04 13:45 | RAD_ITS ---
STUDY: X-RAY - RIGHT KNEE REASON FOR EXAM: Female, 79 years old. SUDDEN ONSET RT KNEE PAIN IN JOINT AND TO MEDIAL SIDE OF PATELLA.. NO KNOWN INJURY. TECHNIQUE: 4 view(s) of the knee. COMPARISON: None. FINDINGS: Normal visualized distal femur. Normal visualized proximal tibia and fibula. Normal proximal tibiofibular articulation. Minimal degenerative narrowing of the medial compartment. Normal lateral femorotibial compartment. There is mild degenerative arthrosis of the patellofemoral articulation. Negative for joint effusion. The patella appears to be high riding; however, the lateral view is submitted in extension. Soft tissue swelling and inhomogeneous soft tissue density in the subcutaneous compartment medial to the knee. RAD/Knee 4 or More Views IMPRESSION: Negative for fracture, dislocation or substantial joint effusion. Mild degenerative arthrosis of the patellofemoral compartment. Superficial soft tissue abnormality medial to the knee. Hematoma? Electronically Signed: Yancy Maravilla MD at 17:16 EDT , Service support ,
== END ==
PROVIDERS: PCP Family Medicine Geriatric Medicine; Referring Provider Anesthesiology Pain Medicine; Visit Provider Anesthesiology Pain Medicine
DX: M25.561 Pain in right knee (principal)
CPT/HCPCS: 73564

== ENCOUNTER → 2020-06-28 13:57 | Outpatient (CLI) | payer MEDICARE, OTHER, SELFPAY ==
[2019-12-30 10:40] VITALS: BMI 27.4
[2020-06-28 15:07] LABS: Absolute Lymphocyte Count 2.18 X10^3/uL (0.83-4.51); Absolute Neutrophil Count 3.4 X10^3/uL (2.0-7.7); Basophil# 0.02 X10^3/uL; Basophil% 0.3 % (0-1); Eosinophil# 0.24 X10^3/uL; Eosinophils% 3.8 % (0-5); Hematocrit 38.1 % (37-47); Hemoglobin 11.9 g/dL (12.0-15.0); Lymphocyte # 2.18 X10^3/ul (4.0); Lymphocyte % 34.5 % (19-41); Mean Corp Hgb Conc 31.2 g/dL (32-36); Mean Corpuscular Hgb 28.7 pg (27.0-32.0); Mean Platelet Vol. 10.2 fl (6.2-12.0); Monocyte# 0.49 X10^3/uL; Monocyte% 7.8 % (0-10); NRBC Flagged by Analyzer 0 % (0-5); Neutrophil # 3.38 X10^3/uL (2.7-7.7); Neutrophil % 53.4 % (47-70); Platelet Count 231 K/mm3 (150-450); RBC Distribution Width CV 13.6 % (11.6-14.6); RBC Distribution Width SD 45.9 fl (35.1-43.9); Red Blood Count 4.14 M/mm3 (4.2-5.4); White Blood Count 6.3 K/mm3 (4.4-11.0)
[2020-06-28 15:55] LABS: Albumin, Serum 3.7 g/dL (3.2-5.0); BUN 16 mg/dL (7-18); BUN/Creat Ratio 15.4 RATIO (10-20); Creatinine, Serum 1.04 mg/dL (0.55-1.02); EST Glomerular Filtration Rate 55 mL/min (>60); Est Glom Filt Rate - Afr Amer 66 mL/min (>60); Glucose 132 mg/dL (74-106); Protein, Total 6.9 g/dL (6.4-8.2)
[2020-06-28 15:56] LABS: ALB/GLOB Ratio 1.2 RATIO (0.9-2.4); AST(SGOT) 21 U/L (15-37); Alanine Aminotransfer ALT/SGPT 16 U/L (13-56); Alkaline Phosphatase 52 U/L (45-117); Anion Gap 6 (5-15); Calcium,Total 9.1 mg/dL (8.5-10.1); Chloride 108 mmol/L (98-107); Globulin 3.2 g/dL (2.2-4.2); Potassium 3.9 mmol/L (3.5-5.1); Sodium Level 143 mmol/L (136-145); Thyroid Stim Hormone (TSH) 0.93 uIU/mL (0.358-3.74)
[2020-06-28 16:53] LABS: Vitamin D,25 Hydroxy 29.2 ng/mL
== END ==
PROVIDERS: PCP Family Medicine Geriatric Medicine; Visit Provider Family Medicine Geriatric Medicine
DX: I10 Essential (primary) hypertension (principal); E55.9 Vitamin D deficiency, unspecified
CPT/HCPCS: 36415; 80053; 82306; 84443; 85025

== ENCOUNTER → 2020-07-27 10:55 | Outpatient (CLI) | payer MEDICARE, OTHER, SELFPAY ==
[2019-12-30 10:40] VITALS: BMI 27.4
--- NOTE | 2020-07-27 10:59 | VDLE_ITS ---
Reason For Study: Localized edema RIGHT LEFT CFV is compressible, spontaneous, phasic, GSV is normal. competent and demonstrates normal CFV is compressible, spontaneous, phasic, augmentation. competent, and demonstrates normal FV is compressible, spontaneous, phasic, augmentation. competent and demonstrates normal FV is compressible, spontaneous, phasic, augmentation. competent and demonstrates normal POP V is compressible, spontaneous, phasic, augmentation. competent and demonstrates normal POP V is compressible, spontaneous, phasic, augmentation. competent and demonstrates normal T/P Trunk is compressible. augmentation. PTV is compressible. T/P Trunk is compressible. RT PerV is compressible. PTV is compressible. GSV Previous EVLA. LT PerV is compressible. Procedure Thrombus filled varicose vein noted in the This is a venous duplex using B-mode, color left mid thigh. flow and spectral Doppler. Exam performed in department. A preliminary report was called and/or faxed to [facility]. Interpretation Summary Deep veins of the lower extremities are bilaterally patent and compressible segmentally. There is no evidence of deep vein thrombosis on either side. Valvular competence appears intact within the proximal deep venous systems bilaterally. The right great saphenous vein appears to have been treated by means of a prior endothermal ablation procedure. The left great saphenous vein appears patent and compressible segmentally. Acute superficial thrombophlebitis is noted involving a varicose vein in the left mid-thigh. Ordering Physician: Armond Tate Referring Physician: Armond Tate Chi Performed By: Montserrat Nick RVT
== END ==
PROVIDERS: PCP Family Medicine Geriatric Medicine; Referring Provider Family Medicine Geriatric Medicine; Visit Provider Family Medicine Geriatric Medicine
DX: R60.0 Localized edema (principal)
CPT/HCPCS: 93970

== ENCOUNTER → 2020-08-23 10:16 | Outpatient (CLI) | payer MEDICARE, OTHER, SELFPAY ==
[2019-12-30 10:40] VITALS: BMI 27.4
[2020-08-23 11:28] LABS: Amphetamine Urine VISTA NEGATIVE (<1000 ng/mL); Barbiturate Urine VISTA NEGATIVE (< 200 ng/mL); Benzodiazepine Urine VISTA NEGATIVE (< 200 ng/mL); Cocaine Urine VISTA NEGATIVE (< 300 ng/mL); Ecstacy Urine VISTA NEGATIVE (< 500 ng/mL); Methadone Urine VISTA NEGATIVE (< 300 ng/mL); PCP Urine VISTA NEGATIVE (< 25 ng/mL); THC Urine VISTA NEGATIVE (< 50 ng/mL); Vista UDS pH Range 5
== END ==
PROVIDERS: PCP Family Medicine Geriatric Medicine; Visit Provider Anesthesiology Pain Medicine
DX: F11.20 Opioid dependence, uncomplicated (principal)
CPT/HCPCS: 80307

== ENCOUNTER → 2020-09-04 15:53 | Outpatient (CLI) | payer MEDICARE, OTHER, SELFPAY ==
[2019-12-30 10:40] VITALS: BMI 27.4
[2020-09-04 17:27] LABS: Anion Gap 6 (5-15); BUN 21 mg/dL (7-18); BUN/Creat Ratio 14.9 RATIO (10-20); Calcium,Total 8.7 mg/dL (8.5-10.1); Chloride 107 mmol/L (98-107); Creatinine, Serum 1.41 mg/dL (0.55-1.02); EST Glomerular Filtration Rate 38 mL/min (>60); Est Glom Filt Rate - Afr Amer 46 mL/min (>60); Glucose 121 mg/dL (74-106); Sodium Level 141 mmol/L (136-145)
== END ==
PROVIDERS: PCP Family Medicine Geriatric Medicine; Visit Provider Family Medicine Geriatric Medicine
DX: I10 Essential (primary) hypertension (principal)
CPT/HCPCS: 36415; 80048

== ENCOUNTER → 2020-09-12 10:18 | Outpatient (CLI) | payer MEDICARE, OTHER, SELFPAY ==
[2019-12-30 10:40] VITALS: BMI 27.4
[2020-09-12 12:25] LABS: Anion Gap 6 (5-15); BUN 18 mg/dL (7-18); BUN/Creat Ratio 16.7 RATIO (10-20); Calcium,Total 9.1 mg/dL (8.5-10.1); Chloride 107 mmol/L (98-107); Creatinine, Serum 1.08 mg/dL (0.55-1.02); EST Glomerular Filtration Rate 52 mL/min (>60); Est Glom Filt Rate - Afr Amer 63 mL/min (>60); Glucose 106 mg/dL (74-106); Potassium 3.5 mmol/L (3.5-5.1); Sodium Level 141 mmol/L (136-145)
== END ==
PROVIDERS: PCP Family Medicine Geriatric Medicine; Visit Provider Family Medicine Geriatric Medicine
DX: R68.89 Other general symptoms and signs (principal)
CPT/HCPCS: 36415; 80048

== ENCOUNTER → 2020-09-27 13:41 | Outpatient (CLI) | payer MEDICARE, OTHER, SELFPAY ==
[2019-12-30 10:40] VITALS: BMI 27.4
[2020-09-27 17:00] LABS: Absolute Lymphocyte Count 2.25 X10^3/uL (0.83-4.51); Absolute Neutrophil Count 3.8 X10^3/uL (2.0-7.7); Basophil# 0.03 X10^3/uL; Basophil% 0.4 % (0-1); Eosinophil# 0.23 X10^3/uL; Eosinophils% 3.3 % (0-5); Hematocrit 37.6 % (37-47); Hemoglobin 11.9 g/dL (12.0-15.0); Lymphocyte # 2.25 X10^3/ul (4.0); Lymphocyte % 32.6 % (19-41); Mean Corp Hgb Conc 31.6 g/dL (32-36); Mean Corpuscular Hgb 29.2 pg (27.0-32.0); Mean Corpuscular Volume 92.2 fL (81-99); Monocyte# 0.53 X10^3/uL; Monocyte% 7.7 % (0-10); NRBC Flagged by Analyzer 0 % (0-5); Neutrophil # 3.84 X10^3/uL (2.7-7.7); Neutrophil % 55.7 % (47-70); Platelet Count 251 K/mm3 (150-450); RBC Distribution Width CV 14.4 % (11.6-14.6); RBC Distribution Width SD 48.2 fl (35.1-43.9); Red Blood Count 4.08 M/mm3 (4.2-5.4); White Blood Count 6.9 K/mm3 (4.4-11.0)
[2020-09-27 17:14] LABS: Vitamin D,25 Hydroxy 23.4 ng/mL
[2020-09-27 17:18] LABS: ALB/GLOB Ratio 1.2 RATIO (0.9-2.4); AST(SGOT) 15 U/L (15-37); Alanine Aminotransfer ALT/SGPT 22 U/L (13-56); Albumin, Serum 3.7 g/dL (3.2-5.0); Alkaline Phosphatase 58 U/L (45-117); Anion Gap 5 (5-15); BUN 21 mg/dL (7-18); BUN/Creat Ratio 20.6 RATIO (10-20); Calcium,Total 8.9 mg/dL (8.5-10.1); Chloride 109 mmol/L (98-107); Creatinine, Serum 1.02 mg/dL (0.55-1.02); EST Glomerular Filtration Rate 56 mL/min (>60); Est Glom Filt Rate - Afr Amer 67 mL/min (>60); Globulin 3.2 g/dL (2.2-4.2); Glucose 102 mg/dL (74-106); Potassium 4.4 mmol/L (3.5-5.1); Protein, Total 6.9 g/dL (6.4-8.2); Sodium Level 143 mmol/L (136-145); Thyroid Stim Hormone (TSH) 0.89 uIU/mL (0.358-3.74)
== END ==
PROVIDERS: PCP Family Medicine Geriatric Medicine; Visit Provider Family Medicine Geriatric Medicine
DX: I10 Essential (primary) hypertension (principal); E55.9 Vitamin D deficiency, unspecified
CPT/HCPCS: 36415; 80053; 82306; 84443; 85025

== ENCOUNTER → 2020-12-27 15:17 | Outpatient (CLI) | payer MEDICARE, OTHER, SELFPAY ==
[2019-12-30 10:40] VITALS: BMI 27.4
[2020-12-27 17:28] LABS: Absolute Lymphocyte Count 2.73 X10^3/uL (0.83-4.51); Absolute Neutrophil Count 4.1 X10^3/uL (2.0-7.7); Basophil# 0.04 X10^3/uL; Basophil% 0.5 % (0-1); Eosinophil# 0.23 X10^3/uL; Eosinophils% 2.9 % (0-5); Hematocrit 37.1 % (37-47); Hemoglobin 11.5 g/dL (12.0-15.0); Lymphocyte # 2.73 X10^3/ul (4.0); Lymphocyte % 34.9 % (19-41); Mean Corpuscular Hgb 29.3 pg (27.0-32.0); Mean Corpuscular Volume 94.4 fL (81-99); Mean Platelet Vol. 10.1 fl (6.2-12.0); Monocyte# 0.65 X10^3/uL; Monocyte% 8.3 % (0-10); NRBC Flagged by Analyzer 0 % (0-5); Neutrophil # 4.14 X10^3/uL (2.7-7.7); Neutrophil % 52.9 % (47-70); Platelet Count 278 K/mm3 (150-450); RBC Distribution Width CV 14.3 % (11.6-14.6); RBC Distribution Width SD 49.5 fl (35.1-43.9); Red Blood Count 3.93 M/mm3 (4.2-5.4); White Blood Count 7.8 K/mm3 (4.4-11.0)
[2020-12-27 17:45] LABS: Vitamin D,25 Hydroxy 28.8 ng/mL
[2020-12-27 17:52] LABS: ALB/GLOB Ratio 1.3 RATIO (0.9-2.4); AST(SGOT) 13 U/L (15-37); Alanine Aminotransfer ALT/SGPT 23 U/L (13-56); Alkaline Phosphatase 57 U/L (45-117); Anion Gap 6 (5-15); BUN 27 mg/dL (7-18); BUN/Creat Ratio 20.5 RATIO (10-20); Calcium,Total 9.1 mg/dL (8.5-10.1); Chloride 107 mmol/L (98-107); Creatinine, Serum 1.32 mg/dL (0.55-1.02); EST Glomerular Filtration Rate 41 mL/min (>60); Est Glom Filt Rate - Afr Amer 50 mL/min (>60); Globulin 3.1 g/dL (2.2-4.2); Glucose 116 mg/dL (74-106); Potassium 4.2 mmol/L (3.5-5.1); Protein, Total 7.1 g/dL (6.4-8.2); Sodium Level 142 mmol/L (136-145); Thyroid Stim Hormone (TSH) 1.12 uIU/mL (0.358-3.74)
== END ==
PROVIDERS: PCP Family Medicine Geriatric Medicine; Visit Provider Family Medicine Geriatric Medicine
DX: I10 Essential (primary) hypertension (principal); E55.9 Vitamin D deficiency, unspecified
CPT/HCPCS: 36415; 80053; 82306; 84443; 85025

== ENCOUNTER → 2021-01-29 06:50 | Outpatient (CLI) | payer MEDICARE, OTHER, SELFPAY ==
[2019-12-30 10:40] VITALS: BMI 27.4
--- NOTE | 2021-01-29 08:56 | NEURO_ITS ---
NCS and/or EMG Patient Report Ordering Doctor: Edmar Vargas DATE OF SERVICE: 01/29/21 Indication: The patient reports fixed numbness in the 4/5th toes of the left lower extremity. This has been present for several years without appreciable improvement or worsening. She denies any associaed weakness of the limb. Evalu ate for lumbosacral radiculopathy. Findings: Nerve conduction studies were performed in the left lower extremity. The left peroneal motor study recording the extensor digitorum brevis showed a normal amplitude, normal distal latency and normal conduction velocity. No conduction block or focal slowing was present across the fibular neck. The left tibial motor study recording the abductor hallucis brevis showed a normal amplitude, normal distal latency and normal conduction velocity. Left sural sensory response showed a normal amplitude and conduction velocity. Left superficial peroneal sensory response showed a normal amplitude and conduction velocity. Needle EMG of the left lower extremity and lumbar paraspinal muscles was performed. No denervation was present in any muscle. All motor unit morphology, activation and recruitment patterns were normal. Impression: This is a normal study. There is no electrophysiologic evidence of lumbosacral radiculopathy, plexopathy, or peripheral neuropathy of either the left lower extremity. Please note: the electrodiagnosis of radiculopathy is made on the basis of excluding peripheral nerve lesions on nerve conduction studies and the needle EMG demonstrating denervation and/or reinnervation in the distribution of one or more nerve roots (i.e., acute and/or chronic axonal loss). Thus, electrodiagnostic studies are insensitive in detecting radiculopathy in the absence of axonal loss (e.g., in the setting of compression resulting in intermittent ischemia or mechanical deformation; or demyelination without axonal loss). Thus, clinical correlation is required in the interpretation of this negative electrodiagnostic study for radiculopathy. Ac Sloan D.O.
== END ==
PROVIDERS: PCP Family Medicine Geriatric Medicine; Referring Provider Podiatrist; Visit Provider Podiatrist
DX: G57.53 Tarsal tunnel syndrome, bilateral lower limbs (principal)
CPT/HCPCS: 95886; 95908

== ENCOUNTER → 2021-04-03 15:18 | Outpatient (CLI) | payer MEDICARE, OTHER, SELFPAY ==
[2019-12-30 10:40] VITALS: BMI 27.4
[2021-04-03 16:51] LABS: Absolute Lymphocyte Count 2.23 X10^3/uL (0.83-4.51); Absolute Neutrophil Count 3.6 X10^3/uL (2.0-7.7); Basophil# 0.04 X10^3/uL; Basophil% 0.6 % (0-1); Hematocrit 35.8 % (37-47); Hemoglobin 11.3 g/dL (12.0-15.0); Lymphocyte # 2.23 X10^3/ul (0.83-4.51); Lymphocyte % 33.3 % (19-41); Mean Corp Hgb Conc 31.6 g/dL (32-36); Mean Corpuscular Hgb 29.2 pg (27.0-32.0); Mean Corpuscular Volume 92.5 fL (81-99); Mean Platelet Vol. 10.5 fl (6.2-12.0); Monocyte# 0.65 X10^3/uL; Monocyte% 9.7 % (0-10); NRBC Flagged by Analyzer 0 % (0-5); Neutrophil # 3.55 X10^3/uL (2.7-7.7); Neutrophil % 53.1 % (47-70); Platelet Count 223 K/mm3 (150-450); RBC Distribution Width CV 13.8 % (11.6-14.6); RBC Distribution Width SD 46.7 fl (35.1-43.9); Red Blood Count 3.87 M/mm3 (4.2-5.4); White Blood Count 6.7 K/mm3 (4.4-11.0)
[2021-04-03 17:04] LABS: Vitamin D,25 Hydroxy 29.2 ng/mL
[2021-04-03 17:17] LABS: ALB/GLOB Ratio 1.1 RATIO (0.9-2.4); AST(SGOT) 17 U/L (15-37); Alanine Aminotransfer ALT/SGPT 23 U/L (13-56); Albumin, Serum 3.6 g/dL (3.2-5.0); Alkaline Phosphatase 57 U/L (45-117); Anion Gap 8 (5-15); BUN 20 mg/dL (7-18); BUN/Creat Ratio 17.7 RATIO (10-20); Calcium,Total 8.8 mg/dL (8.5-10.1); Chloride 108 mmol/L (98-107); Creatinine, Serum 1.13 mg/dL (0.55-1.02); EST Glomerular Filtration Rate 50 mL/min (>60); Est Glom Filt Rate - Afr Amer 60 mL/min (>60); Globulin 3.2 g/dL (2.2-4.2); Glucose 114 mg/dL (74-106); Potassium 4.2 mmol/L (3.5-5.1); Protein, Total 6.8 g/dL (6.4-8.2); Sodium Level 143 mmol/L (136-145); Thyroid Stim Hormone (TSH) 0.98 uIU/mL (0.358-3.74)
== END ==
PROVIDERS: PCP Family Medicine Geriatric Medicine; Visit Provider Family Medicine Geriatric Medicine
DX: E11.9 Type 2 diabetes mellitus without complications (principal); E55.9 Vitamin D deficiency, unspecified; I10 Essential (primary) hypertension
CPT/HCPCS: 36415; 80053; 82306; 84443; 85025

== ENCOUNTER → 2021-05-07 07:16 | Outpatient (CLI) | payer MEDICARE, OTHER, SELFPAY ==
[2021-05-01 09:52] VITALS: BMI 28.3
[2021-05-07 08:31] LABS: Hemoglobin A1c 5.5 % (3.8-5.6); Vitamin B12 272 pg/mL (211-911)
[2021-05-08 16:20] LABS: Free Kappa Light Chains 21.4 mg/L (3.3-19.4)
== END ==
PROVIDERS: PCP Family Medicine; Referring Provider Psychiatry & Neurology Neurology; Visit Provider Psychiatry & Neurology Neurology
DX: R73.9 Hyperglycemia, unspecified (principal); G62.9 Polyneuropathy, unspecified
CPT/HCPCS: 36415; 82607; 82746; 83036; 83883

== ENCOUNTER → 2021-06-08 09:24 | Outpatient (CLI) | payer MEDICARE, OTHER, SELFPAY ==
[2021-06-08 11:33] LABS: Absolute Lymphocyte Count 1.52 X10^3/uL (0.83-4.51); Absolute Neutrophil Count 2.9 X10^3/uL (2.0-7.7); Basophil# 0.04 X10^3/uL; Basophil% 0.8 % (0-1); Eosinophil# 0.19 X10^3/uL; Eosinophils% 3.8 % (0-5); Hematocrit 35.6 % (37-47); Hemoglobin 11.4 g/dL (12.0-15.0); Lymphocyte # 1.52 X10^3/ul (0.83-4.51); Lymphocyte % 30.1 % (19-41); Mean Corpuscular Hgb 29.8 pg (27.0-32.0); Mean Platelet Vol. 9.7 fl (6.2-12.0); Monocyte# 0.43 X10^3/uL; Monocyte% 8.5 % (0-10); NRBC Flagged by Analyzer 0 % (0-5); Neutrophil # 2.85 X10^3/uL (2.7-7.7); Neutrophil % 56.4 % (47-70); Platelet Count 237 K/mm3 (150-450); RBC Distribution Width CV 14.5 % (11.6-14.6); RBC Distribution Width SD 49.3 fl (35.1-43.9); Red Blood Count 3.83 M/mm3 (4.2-5.4); White Blood Count 5.1 K/mm3 (4.4-11.0)
[2021-06-08 12:01] LABS: Vitamin B12 423 pg/mL (211-911); Vitamin D,25 Hydroxy 67.5 ng/mL
[2021-06-08 12:03] LABS: Anion Gap 3 (5-15); BUN 21 mg/dL (7-18); BUN/Creat Ratio 23.5 RATIO (10-20); Chloride 106 mmol/L (98-107); Creatinine, Serum 0.89 mg/dL (0.55-1.02); EST Glomerular Filtration Rate 65 mL/min (>60); Est Glom Filt Rate - Afr Amer 79 mL/min (>60); Glucose 85 mg/dL (74-106); Potassium 3.8 mmol/L (3.5-5.1); Sodium Level 140 mmol/L (136-145)
== END ==
PROVIDERS: PCP Family Medicine; Visit Provider Family Medicine
DX: I10 Essential (primary) hypertension (principal); K21.9 Gastro-esophageal reflux disease without esophagitis; E53.8 Deficiency of other specified B group vitamins; E55.9 Vitamin D deficiency, unspecified
CPT/HCPCS: 36415; 80048; 82306; 82607; 85025

== ENCOUNTER 2021-06-23 08:32 | Emergency (ER) | payer MEDICARE, OTHER, SELFPAY ==
[2021-06-23 08:33] VITALS: BP 145/79; PULSE 80; RESP 16; TEMP 36.6; O2SAT 97; BMI 28.0
--- NOTE | 2021-06-23 08:55 | EX.ED.DYSGE1 ---
HPI History of Present Illness Chief Complaint: Abd Pain Informant: patient and family Narrative Narrative: 80-year-old female presents the emergency department with nausea and vomiting. Patient states that she felt fine yesterday during the day. The patient states that she went to bed but awoke later around 2230 with vomiting. No diarrhea. She notes an upper abdominal pain. Nonradiating. She reports having had multiple abdominal wall hernia surgeries as well as a cholecystectomy. No history of pancreatitis. Nobody else sick at home. [facility] Medical History (Updated 06/23/21 @ 11:[address] Maikel Simms DO) Chest pain Essential hypertension GERD (gastroesophageal reflux disease) History of benign breast biopsy Lumbar spinal stenosis Mixed hyperlipidemia Opioid dependence Palpitations Small bowel obstruction Home Medications lisinopril 10 mg tablet 10 mg PO DAILY 10/04/19 [History Last Taken 11/09/19] oxycodone 5 mg tablet 5 mg PO DAILY 10/04/19 [History Last Taken Unknown] aspirin 81 mg tablet,delayed release 81 mg PO DAILY 10/07/19 [History Last Taken 11/09/19] cholecalciferol (vitamin D3) 1,250 mcg (50,000 unit) capsule 1,250 mcg PO QWEEK #4 cap 05/01/21 [Rx Last Taken Unknown] famotidine 40 mg tablet 40 mg PO DAILY tab 05/01/21 [History Last Taken Unknown] enjindwx-ljp-sjlo-FA-Ca carb-vit K 18 mg iron-400 mcg-500 mg tablet 1 tab PO DAILY 05/01/21 [History Last Taken Unknown] omeprazole 40 mg capsule,delayed release 40 mg PO DAILY cap 05/01/21 [History Last Taken Unknown] valsartan 320 mg-hydrochlorothiazide 25 mg tablet 1 tab PO DAILY tab 05/01/21 [History Last Taken Unknown] ondansetron 4 mg PO Q6H PRN PRN #15 tab 06/23/21 [Rx Last Taken Unknown] Allergy/AdvReac Type Severity Reaction Status Date / Time latex AdvReac Vomiting Verified 06/23/21 08:35 Family History Sister Breast cancer Surgical History H/O oophorectomy H/O total hysterectomy Hx of cholecystectomy Social History Smoking Status: Former smoker Tobacco: How many years used: 45 second hand exposure: No alcohol intake: current alcohol intake frequency: a few times a month substance use type: does not use caffeine: Yes Type: coffee Number of servings: 1 seatbelt use: always do you feel safe at home: Yes ROS ROS ED Constitutional Constitutional ED: Denies chills or weight loss Eyes Eyes: Denies change in vision or diplopia ENT ENT ED: Denies ear pain, rhinorrhea or sore throat Cardiovascular Cardiovascular: Denies chest pain, orthopnea, palpitations or racing heartbeat Respiratory/Chest Respiratory/Chest: Denies cough, dyspnea or orthopnea Gastrointestinal Gastrointestinal: Reports vomiting; Denies abdominal pain, diarrhea or nausea Genitourinary Genitourinary ED: Denies dysuria, hematuria or urinary frequency Musculoskeletal Musculoskeletal: Denies arthralgias or myalgias Integumentary Denies abscess or rash Neurologic Neurologic: Denies headache(s) or weakness Psychiatric Psychiatric: Denies anxiety, depression, suicidal ideation or suicidal thoughts Endocrine Endocrinology: Denies polydipsia, polyphagia or polyuria Allergic/Immunologic Allergic/Immunologic ED: Denies mouth swelling, tongue swelling or urticaria EXAM Physical Exam Const Vital Signs: 06/23/21 08:33 06/23/21 10:29 Temperature 97.8 F Temperature Source Temporal Pulse Rate 80 72 Respiratory Rate 16 14 Blood Pressure 145/79 H 160/77 H Blood Pressure Mean 101 104 Pulse Ox 97 97 Oxygen Delivery Method Room Air Room Air Positive well nourished and well developed General Appearance ED: well developed HEENT Reports normocephalic, head/scalp atraumatic and moist mucous membranes Eyes PERRL and EOMs intact bilaterally Neck no lymphadenopathy, supple and no JVD Resp normal respiratory effort and clear to auscultation bilaterally Cardio regular rate, regular rhythm and no murmurs GI Palpation: soft and tender epigastric and RUQ; Negative for guarding or rebound tenderness present Back/Spine no CVA tenderness and normal ROM Extremity normal to inspection General Extremety ED: Negative for edema General Extremity: Negative for edema Neuro oriented x3 and CN's II-XII intact bilaterally Sensorium / Orientation: alert Motor Exam: strength 5/5 throughout Psych mental status grossly normal Mood & Affect: Negative for depressed or tearful Skin no rashes or lesions noted and no wounds MDM MDM MDM Narrative Medical decision making narrative: Basic blood work was obtained which is essentially negative. White count 8.0. Because of the patient's extensive hernia repairs a CT of the abdomen pelvis was obtained to rule out bowel obstruction. This showed no obvious obstruction. There was some loops of bowel that are possibly adhered to the mesh. These loops were mildly dilated but no obvious obstruction. Patient was advised that she is certainly at risk for developing a bowel obstruction. I will write for some Zofran. Lab Data Attestation: I reviewed the patient's lab results. Labs: Laboratory Results - last 24 hr 06/23/21 06/23/21 08:52 08:52 WBC 8.0 RBC 4.42 Hgb 12.9 Hct 40.1 MCV 90.7 MCH 29.2 MCHC 32.2 RDW Std Deviation 48.4 H RDW Coeff of Hossein 14.6 Plt Count 223 MPV 9.4 Immature Gran % (Auto) 0.300 Neut % (Auto) 82.2 H Lymph % (Auto) 10.2 L [place] % (Auto) 6.9 Eos % (Auto) 0.1 Baso % (Auto) 0.3 Absolute Neuts (auto) 6.6 Absolute Lymphs (auto) 0.81 L Nucleated RBC % 0 Sodium 138 Potassium 3.3 L Chloride 104 Carbon Dioxide 28.0 Anion Gap 6 BUN 17 Creatinine 1.06 H Estim Creat Clear Calc 40.95 Est GFR (MDRD) Af Amer 64 Est GFR (MDRD) Non-Af 53 L BUN/Creatinine Ratio 16.0 Glucose 135 H Calcium 9.1 Total Bilirubin 1.50 H AST 24 ALT 25 Alkaline Phosphatase 63 Total Protein 7.5 Albumin 3.8 Globulin 3.7 Albumin/Globulin Ratio 1.0 Lipase 68 L Radiography Diagnostic Testing: Radiology Impression Abdomen/Pelvis CT 06/23/21 09:40 IMPRESSION: Small amount of free fluid in the pelvis which is abnormal in a postmenopausal female but without obvious etiology. Suspect adherent loops of small bowel subjacent to the mesh but without bowel obstruction. Electronically Signed: Kieran Vincent MD at 10:52 EDT Tel , Service support , Discharge Plan Triage Chief Complaint: Abd Pain ED Provider: Maikel Simms Dx/Rx/DC Orders Clinical Impression: Vomiting Instructions: Nausea Vomit Control Prescriptions: New ondansetron [ondansetron] 4 MG tablet 4 mg PO Q6H PRN PRN (Reason: Nausea) Qty: 15 RF: 0 No Action aspirin [Adult Low Dose Aspirin] 81 mg tablet,delayed release (DR/EC) 81 mg PO DAILY RF: 0 lisinopril 10 mg tablet 10 mg PO DAILY RF: 0 oxycodone 5 mg tablet 5 mg PO DAILY RF: 0 valsartan-hydrochlorothiazide 320-25 mg tablet 1 tab PO DAILY RF: 0 famotidine 40 mg tablet 40 mg PO DAILY RF: 0 omeprazole 40 mg capsule,delayed release(DR/EC) 40 mg PO DAILY RF: 0 Women's Multivitamin 18 mg iron-400 mcg-500 mg tablet 1 tab PO DAILY RF: 0 cholecalciferol (vitamin D3) 1,250 mcg (50,000 unit) capsule 1,250 mcg PO QWEEK Qty: 4 RF: 2 Primary Care Provider: Merly Lewis Referrals: Merly Lewis MD [Primary Care Provider] - As Needed Activity Restrictions/Additional Instructions: As discussed you are at risk for bowel obstruction. However we do not see one today. If you continue to have symptoms are feeling significantly more bloated please return to the emergency department for evaluation Disposition Disposition: Home, Self Care
[2021-06-23 09:02] LABS: Absolute Lymphocyte Count 0.81 X10^3/uL (0.83-4.51); Absolute Neutrophil Count 6.6 X10^3/uL (2.0-7.7); Basophil# 0.02 X10^3/uL; Basophil% 0.3 % (0-1); Eosinophil# 0.01 X10^3/uL; Eosinophils% 0.1 % (0-5); Hematocrit 40.1 % (37-47); Hemoglobin 12.9 g/dL (12.0-15.0); Lymphocyte # 0.81 X10^3/ul (0.83-4.51); Lymphocyte % 10.2 % (19-41); Mean Corp Hgb Conc 32.2 g/dL (32-36); Mean Corpuscular Hgb 29.2 pg (27.0-32.0); Mean Corpuscular Volume 90.7 fL (81-99); Mean Platelet Vol. 9.4 fl (6.2-12.0); Monocyte# 0.55 X10^3/uL; Monocyte% 6.9 % (0-10); NRBC Flagged by Analyzer 0 % (0-5); Neutrophil # 6.55 X10^3/uL (2.7-7.7); Neutrophil % 82.2 % (47-70); Platelet Count 223 K/mm3 (150-450); RBC Distribution Width CV 14.6 % (11.6-14.6); RBC Distribution Width SD 48.4 fl (35.1-43.9); Red Blood Count 4.42 M/mm3 (4.2-5.4)
[2021-06-23] MEDS: 0.9% Normal Saline 1,000 ML 1000 ML IV (09:02)
[2021-06-23] MEDS: Ondansetron 4 MG/2 ML Vial IV (09:02)
[2021-06-23 09:20] LABS: AST(SGOT) 24 U/L (15-37); Alanine Aminotransfer ALT/SGPT 25 U/L (13-56); Albumin, Serum 3.8 g/dL (3.2-5.0); Alkaline Phosphatase 63 U/L (45-117); Anion Gap 6 (5-15); BUN 17 mg/dL (7-18); Calcium,Total 9.1 mg/dL (8.5-10.1); Chloride 104 mmol/L (98-107); Creatinine, Serum 1.06 mg/dL (0.55-1.02); EST Glomerular Filtration Rate 53 mL/min (>60); Est Glom Filt Rate - Afr Amer 64 mL/min (>60); Estimated Creatinine Clearance 40.95 ml/min; Globulin 3.7 g/dL (2.2-4.2); Glucose 135 mg/dL (74-106); Lipase 68 U/L (73-393); Potassium 3.3 mmol/L (3.5-5.1); Protein, Total 7.5 g/dL (6.4-8.2); Sodium Level 138 mmol/L (136-145)
--- NOTE | 2021-06-23 09:40 | CT_ITS ---
STUDY: CT ABDOMEN AND PELVIS WITH CONTRAST REASON FOR EXAM: Female, 80 years old. abdominal pain RADIATION DOSAGE (If Supplied By Facility): CTDIvol = ( 17.51 ) mGy, DLP = ( 1095.02 ) mGycm TECHNIQUE: Transaxial images were obtained from the dome of the diaphragm to the symphysis pubis without oral contrast. IV 100mL Isovue-300 was administered. Sagittal and coronal images were reconstructed. Individualized dose optimization techniques were used for this CT. COMPARISON: None. FINDINGS: The visualized lung bases are unremarkable. The visualized portions of the heart are within normal limits. No change in the 6.5 cm cyst in the posterior segment right lobe liver. Also no change in the 5 cm cyst in the inferior medial segment left lobe of the liver. There is non-visualization of the gallbladder, which may be secondary to either contraction or a prior cholecystectomy. Normal spleen. Normal pancreas. Normal bilateral adrenal glands. Normal right kidney. Normal left kidney. Normal visualized stomach. Normal small intestine. Normal colon. The appendix is visualized and appears normal. There is diffuse atherosclerotic calcification of the abdominal aorta, without a demonstrated aneurysm. Normal inferior vena cava. Normal retroperitoneum. Normal urinary bladder. Small amount of free fluid in the pelvis which is abnormal in a postmenopausal female. Status post repair of umbilical hernia with mesh. No residual recurrent hernia. However, there are some adherent loops of small bowel which are mildly dilated but without definite obstruction. Normal osseous structures. CT/Abdomen/Pelvis W IV Cont ONLY IMPRESSION: Small amount of free fluid in the pelvis which is abnormal in a postmenopausal female but without obvious etiology. Suspect adherent loops of small bowel subjacent to the mesh but without bowel obstruction. Electronically Signed: Kieran Vincent MD at 10:52 EDT Tel , Service support ,
[2021-06-23 10:29] VITALS: BP 160/77; PULSE 72; RESP 14; O2SAT 97
[2021-06-23 11:15] VITALS: BP 156/78; PULSE 71; RESP 14; O2SAT 97
== END 2021-06-23 11:24 | disposition home or self-care (01) ==
PROVIDERS: Emergency Provider Emergency Medicine; PCP Family Medicine
DX: R11.2 Nausea with vomiting, unspecified (principal); I10 Essential (primary) hypertension; E78.2 Mixed hyperlipidemia; K21.9 Gastro-esophageal reflux disease without esophagitis; M48.061 Spinal stenosis, lumbar region without neurogenic claudication; Z87.19 Personal history of other diseases of the digestive system; Z90.49 Acquired absence of other specified parts of digestive tract; Z79.82 Long term (current) use of aspirin; Z79.899 Other long term (current) drug therapy; Z87.891 Personal history of nicotine dependence
CPT/HCPCS: 74177; 80053; 83690; 85025; 99283; J7030; Q9967; A4216; J2405

== ENCOUNTER 2021-06-23 18:57 | Emergency (ER) | payer MEDICARE, OTHER, SELFPAY ==
[2021-06-23 18:58] VITALS: BP 171/86; PULSE 83; RESP 20; TEMP 36.7; O2SAT 96; BMI 27.4
--- NOTE | 2021-06-23 20:35 | CT_ITS ---
INDICATION: ? SBO EXAMINATION: CT ABDOMEN AND PELVIS WITHOUT CONTRAST - CT Abdomen And Pelvis W/O Contrast Injection TECHNIQUE: Helically acquired images were obtained of the abdomen and pelvis without oral or IV contrast. A radiation dose optimization technique was used for this scan. IV Contrast dosage and agent: None. Oral contrast: None. COMPARISON: CT abdomen and pelvis from earlier the same day. Stay here monthly FINDINGS: LOWER CHEST: Bibasilar atelectasis is present increased compared to prior exam. No consolidation. No pleural effusion. No cardiomegaly or pericardial effusion. LIVER: Homogeneous. Hepatic hypodensities are unchanged. GALLBLADDER AND BILIARY TREE: Not visualized, likely surgically absent. No intra- or extrahepatic biliary ductal dilation. PANCREAS: No focal cystic or solid mass. Moderate pancreatic atrophy. SPLEEN: Normal size without focal cystic or solid mass. ADRENAL GLANDS: No nodules. KIDNEYS AND URETERS: Normal renal size and position. No hydronephrosis. Peripelvic cysts are present. Contrast seen in the collecting system. There is right upper extremity density, nonspecific finding potentially associated with decreased renal function. PERITONEUM: No ascites or free air. No other fluid collection. BOWEL: Mildly distended, up to 3 cm small bowel loops many of which are appear adherent to the anterior lower abdominal wall. There is a small knuckle of bowel within a right inguinal hernia containing small amount of fluid. No focal inflammatory change. LYMPH NODES: No enlarged mesenteric or retroperitoneal lymph nodes. VESSELS: Aorta is non-dilated. Dense intimal calcifications are present. URINARY BLADDER: Filled with excreted contrast from earlier exam. No mass lesion or wall thickening. REPRODUCTIVE ORGANS: No pelvic masses. ABDOMINAL WALL: Radiopaque mesh repair anterior lower abdomen. BONES: No lytic or blastic abnormality. Advanced degenerative facet arthropathy lower lumbar spine. CT/Abdomen/Pel W ORAL Cont Only IMPRESSION: No significant interval change compared with earlier the same day showing mildly prominent small bowel loops adhered to the anterior lower abdominal wall suggesting possible adhesions. Small amount of free fluid in the pelvis remains. Tiny right inguinal hernia contains fluid and a tiny knuckle of small bowel with no evidence of obstruction in this area. Electronically Signed: Rl Davila, at 23:38 EDT Tel , Service support ,
[2021-06-23 20:42] LABS: Absolute Lymphocyte Count 1.05 X10^3/uL (0.83-4.51); Absolute Neutrophil Count 8.5 X10^3/uL (2.0-7.7); Basophil# 0.02 X10^3/uL; Basophil% 0.2 % (0-1); Eosinophil# 0.08 X10^3/uL; Eosinophils% 0.8 % (0-5); Hematocrit 40.8 % (37-47); Hemoglobin 13.4 g/dL (12.0-15.0); Lymphocyte # 1.05 X10^3/ul (0.83-4.51); Lymphocyte % 9.9 % (19-41); Mean Corp Hgb Conc 32.8 g/dL (32-36); Mean Corpuscular Hgb 29.7 pg (27.0-32.0); Mean Corpuscular Volume 90.5 fL (81-99); Mean Platelet Vol. 9.8 fl (6.2-12.0); Monocyte# 0.93 X10^3/uL; Monocyte% 8.8 % (0-10); NRBC Flagged by Analyzer 0 % (0-5); Neutrophil % 80.2 % (47-70); Platelet Count 251 K/mm3 (150-450); RBC Distribution Width CV 14.6 % (11.6-14.6); RBC Distribution Width SD 48.4 fl (35.1-43.9); Red Blood Count 4.51 M/mm3 (4.2-5.4); White Blood Count 10.6 K/mm3 (4.4-11.0)
[2021-06-23] MEDS: 0.9% Normal Saline 1,000 ML 999 ML IV (20:45)
[2021-06-23] MEDS: proMETHazine 25 MG/ML Syringe 12.5 MG IM (20:54)
[2021-06-23 21:02] LABS: AST(SGOT) 21 U/L (15-37); Alanine Aminotransfer ALT/SGPT 23 U/L (13-56); Albumin, Serum 3.7 g/dL (3.2-5.0); Alkaline Phosphatase 60 U/L (45-117); Anion Gap 7 (5-15); BUN 15 mg/dL (7-18); BUN/Creat Ratio 15.1 RATIO (10-20); Bilirubin, Direct 0.35 mg/dL (0.00-0.30); Chloride 104 mmol/L (98-107); Creatinine, Serum 0.99 mg/dL (0.55-1.02); EST Glomerular Filtration Rate 58 mL/min (>60); Est Glom Filt Rate - Afr Amer 70 mL/min (>60); Estimated Creatinine Clearance 43.84 ml/min; Globulin 3.6 g/dL (2.2-4.2); Glucose 127 mg/dL (74-106); Lipase 60 U/L (73-393); Protein, Total 7.3 g/dL (6.4-8.2); Sodium Level 140 mmol/L (136-145)
[2021-06-23 23:09] VITALS: BP 153/66; PULSE 78; RESP 14; O2SAT 92
[2021-06-23] MEDS: Ondansetron 4 MG/2 ML Vial IV (23:09)
--- NOTE | 2021-06-23 23:57 | EDS_ITS ---
HPI HPI - GI History of Present Illness Chief Complaint: Nausea/Vomiting Narrative Narrative: Patient is a 80-year-old female with past medical history of multiple hernias that have been surgically repaired with mesh. She states she is occasionally had a bowel obstruction associated with this. She states that in the last 24 hours she is now had abdominal distention with constipation and bouts of vomiting. She had an outpatient CAT scan this morning which showed no obvious obstruction but was informed that if symptoms persist or worsen she should go to the hospital. Patient states despite taking her home nausea meds she has had persistent symptoms and therefore she presents for evaluation [facility] Medical History (Updated 06/24/21 @ 00:[address] Feliciano Justice, DO) Chest pain Essential hypertension GERD (gastroesophageal reflux disease) History of benign breast biopsy Lumbar spinal stenosis Mixed hyperlipidemia Opioid dependence Palpitations Small bowel obstruction Home Medications lisinopril 10 mg tablet 10 mg PO DAILY 10/04/19 [History Last Taken 11/09/19] oxycodone 5 mg tablet 5 mg PO DAILY 10/04/19 [History Last Taken Unknown] aspirin 81 mg tablet,delayed release 81 mg PO DAILY 10/07/19 [History Last Taken 11/09/19] cholecalciferol (vitamin D3) 1,250 mcg (50,000 unit) capsule 1,250 mcg PO QWEEK #4 cap 05/01/21 [Rx Last Taken Unknown] famotidine 40 mg tablet 40 mg PO DAILY tab 05/01/21 [History Last Taken Unknown] zvduaooj-fii-ekeu-FA-Ca carb-vit K 18 mg iron-400 mcg-500 mg tablet 1 tab PO DAILY 05/01/21 [History Last Taken Unknown] omeprazole 40 mg capsule,delayed release 40 mg PO DAILY cap 05/01/21 [History Last Taken Unknown] valsartan 320 mg-hydrochlorothiazide 25 mg tablet 1 tab PO DAILY tab 05/01/21 [History Last Taken Unknown] ondansetron 4 mg PO Q6H PRN PRN #15 tab 06/23/21 [Rx Last Taken Unknown] promethazine 25 mg PO TID PRN #21 tab 06/24/21 [Rx Last Taken Unknown] Allergy/AdvReac Type Severity Reaction Status Date / Time latex AdvReac Vomiting Verified 06/23/21 08:35 Family History Sister Breast cancer Surgical History H/O oophorectomy H/O total hysterectomy Hx of cholecystectomy Social History Smoking Status: Former smoker Tobacco: How many years used: 45 second hand exposure: No alcohol intake: current alcohol intake frequency: a few times a month substance use type: does not use caffeine: Yes Type: coffee Number of servings: 1 seatbelt use: always do you feel safe at home: Yes ROS ROS ED Constitutional Constitutional ED: Denies chills or fever(s) ENT ENT ED: Denies sore throat Cardiovascular Cardiovascular: Denies chest pain Respiratory/Chest Respiratory/Chest: Denies cough or dyspnea Gastrointestinal Gastrointestinal: Reports abdominal pain, constipation, nausea and vomiting Genitourinary Genitourinary ED: Denies dysuria Musculoskeletal Musculoskeletal: Denies myalgias Integumentary Denies rash Neurologic Neurologic: Denies headache(s) Hematologic/Lymphatic Hematologic/Lymphatic: Denies easy bleeding or easy bruising EXAM Physical Exam Const Vital Signs: 06/23/21 18:58 06/23/21 23:09 Temperature 98.1 F Temperature Source Temporal Pulse Rate 83 78 Respiratory Rate 20 H 14 Blood Pressure 171/86 H 153/66 H Blood Pressure Mean 114 95 Pulse Ox 96 92 Oxygen Delivery Method Room Air Room Air Positive well nourished and well developed General Appearance ED: well developed HEENT normocephalic and atraumatic Eyes PERRL and EOMs intact bilaterally Neck supple Resp normal respiratory effort and clear to auscultation bilaterally Cardio regular rate and regular rhythm Cardio Narrative: Radial pulses are plus 2 out of 4 bilaterally are equal and symmetric GI GI Narrative: Abdomen is soft but slightly distended with an area of pain palpated in the midepigastric region. There is mild increased tympany at the site. No voluntary guarding or rigidity. No pulsatile mass. Bowel sounds are hypoactive Extremity full ROM Extremity Narrative: No asymmetric edema no pitting edema negative Homans' sign bilaterally Neuro CN's II-XII intact bilaterally Sensorium / Orientation: alert, oriented to person, oriented to place and oriented to time Psych mental status grossly normal Skin Rashes: no rashes MDM MDM MDM Narrative Medical decision making narrative: Patient presented to the ER with mild abdominal distention which could be related to ileus versus possible obstruction. Secondary to this I did elect to repeat basic laboratory studies and this time a CT scan with oral contrast. Labs revealed mild hypokalemia at 3.0 but otherwise no clinically significant findings. The CT with oral contrast showed abdominal inflammation and distention without obvious obstructive findings. The patient drank the oral contrast and was able to keep the fluid down for her ER stay. Therefore at this time as she does not have acute kidney injury or obvious intestinal infection or obstructive process we discussed that we could try treating the ileus at home by changing the nausea vomiting medication. Patient states that she would like to try this as there is no true obstruction at this time and therefore will be discharged Lab Data Labs: Laboratory Results - last 24 hr 06/23/21 06/23/21 06/23/21 20:15 20:15 20:46 WBC 10.6 RBC 4.51 Hgb 13.4 Hct 40.8 MCV 90.5 MCH 29.7 MCHC 32.8 RDW Std Deviation 48.4 H RDW Coeff of Hossein 14.6 Plt Count 251 MPV 9.8 Immature Gran % (Auto) 0.100 Neut % (Auto) 80.2 H Lymph % (Auto) 9.9 L [place] % (Auto) 8.8 Eos % (Auto) 0.8 Baso % (Auto) 0.2 Absolute Neuts (auto) 8.5 H Absolute Lymphs (auto) 1.05 Nucleated RBC % 0 Sodium 140 Potassium 3.0 L Chloride 104 Carbon Dioxide 29.0 Anion Gap 7 BUN 15 Creatinine 0.99 Estim Creat Clear Calc 43.84 Est GFR (MDRD) Af Amer 70 Est GFR (MDRD) Non-Af 58 L BUN/Creatinine Ratio 15.1 Glucose 127 H Lactic Acid 1.0 Calcium 9.0 Total Bilirubin 1.70 H Direct Bilirubin 0.35 H AST 21 ALT 23 Alkaline Phosphatase 60 Total Protein 7.3 Albumin 3.7 Globulin 3.6 Lipase 60 L Radiography Diagnostic Testing: Radiology Impression Abdomen CT 06/23/21 20:35 IMPRESSION: No significant interval change compared with earlier the same day showing mildly prominent small bowel loops adhered to the anterior lower abdominal wall suggesting possible adhesions. Small amount of free fluid in the pelvis remains. Tiny right inguinal hernia contains fluid and a tiny knuckle of small bowel with no evidence of obstruction in this area. Electronically Signed: Rl Davila DO at 23:38 EDT Tel , Service support , Discharge Plan Triage Chief Complaint: Nausea/Vomiting Other Complaint: Headache ED Provider: Feliciano Justice Dx/Rx/DC Orders Clinical Impression: Nausea & vomiting, Ileus Instructions: Ileus, ED Vomiting (Adult) Prescriptions: New promethazine 25 mg tablet 25 mg PO TID PRN (Reason: nausea and vomiting) Qty: 21 RF: 0 No Action aspirin [Adult Low Dose Aspirin] 81 mg tablet,delayed release (DR/EC) 81 mg PO DAILY RF: 0 lisinopril 10 mg tablet 10 mg PO DAILY RF: 0 oxycodone 5 mg tablet 5 mg PO DAILY RF: 0 valsartan-hydrochlorothiazide 320-25 mg tablet 1 tab PO DAILY RF: 0 famotidine 40 mg tablet 40 mg PO DAILY RF: 0 omeprazole 40 mg capsule,delayed release(DR/EC) 40 mg PO DAILY RF: 0 Women's Multivitamin 18 mg iron-400 mcg-500 mg tablet 1 tab PO DAILY RF: 0 cholecalciferol (vitamin D3) 1,250 mcg (50,000 unit) capsule 1,250 mcg PO QWEEK Qty: 4 RF: 2 ondansetron [ondansetron] 4 MG tablet 4 mg PO Q6H PRN PRN (Reason: Nausea) Qty: 15 RF: 0 Primary Care Provider: Merly Lewis Referrals: Merly Lewis MD [Primary Care Provider] - Disposition Disposition: Home, Self Care
[2021-06-24] MEDS: Ondansetron 4 MG/2 ML Vial IV (00:10)
[2021-06-24 00:15] VITALS: BP 154/77; PULSE 80; RESP 16; O2SAT 92
== END 2021-06-24 00:15 | disposition home or self-care (01) ==
PROVIDERS: Emergency Provider Emergency Medicine; PCP Family Medicine
DX: K56.7 Ileus, unspecified (principal); E87.6 Hypokalemia; I10 Essential (primary) hypertension; E78.2 Mixed hyperlipidemia; K21.9 Gastro-esophageal reflux disease without esophagitis; M48.061 Spinal stenosis, lumbar region without neurogenic claudication; Z87.19 Personal history of other diseases of the digestive system; Z79.82 Long term (current) use of aspirin; Z79.899 Other long term (current) drug therapy; Z87.891 Personal history of nicotine dependence; Z90.49 Acquired absence of other specified parts of digestive tract
CPT/HCPCS: 74176; 74177; 80048; 80053; 80076; 83605; 83690; 85025; 96361; 96374; 99283; J7030; Q9967; A4216; J2405

== ENCOUNTER → 2021-07-05 14:22 | Outpatient (CLI) | payer MEDICARE, OTHER, SELFPAY ==
[2021-07-05 16:40] LABS: Potassium 3.3 mmol/L (3.5-5.1)
[2021-07-10 16:09] LABS: Albumin 3.5 g/dL (2.9-4.4); Alpha-1-Globulins 0.2 g/dL (0.0-0.4); Alpha-2-Globulins 0.7 g/dL (0.4-1.0); Gamma Globulin 0.7 g/dL (0.4-1.8); Immunoglobulin A 144 mg/dL (64-422); Immunoglobulin G 740 mg/dL (586-1602); Immunoglobulin M 71 mg/dL (26-217); PROEL- TOTAL PROTEIN 5.9 g/dL (6.0-8.5)
== END ==
PROVIDERS: PCP Family Medicine; Referring Provider Psychiatry & Neurology Neurology; Visit Provider Psychiatry & Neurology Neurology
DX: G62.9 Polyneuropathy, unspecified (principal); E87.6 Hypokalemia
CPT/HCPCS: 36415; 82784; 84132; 84165; 86334; 86335

== ENCOUNTER → 2021-09-12 | Outpatient (CLI) | payer MEDICARE, OTHER, SELFPAY | END | disposition home or self-care (01) | LOC: LABSPEC 06:53 | PROVIDERS: Visit Provider Family Medicine | DX: Z20.828 Contact with and (suspected) exposure to other viral communicable diseases (principal) | CPT/HCPCS: 87635; U0005; U0003 ==

== ENCOUNTER → 2021-09-27 11:57 | Outpatient (CLI) | payer MEDICARE, OTHER, SELFPAY ==
[2021-09-27 13:13] LABS: Anion Gap 5 (5-15); BUN 21 mg/dL (7-18); BUN/Creat Ratio 21.1 RATIO (10-20); Calcium,Total 9.2 mg/dL (8.5-10.1); Chloride 108 mmol/L (98-107); Creatinine, Serum 0.99 mg/dL (0.55-1.02); EST Glomerular Filtration Rate 57 mL/min (>60); Est Glom Filt Rate - Afr Amer 69 mL/min (>60); Glucose 98 mg/dL (74-106); Potassium 4.1 mmol/L (3.5-5.1); Sodium Level 142 mmol/L (136-145); Uric Acid 5.3 mg/dL (2.6-6.0)
== END ==
PROVIDERS: PCP Family Medicine; Referring Provider Podiatrist; Visit Provider Podiatrist
DX: M10.9 Gout, unspecified (principal)
CPT/HCPCS: 36415; 80048; 84550

== ENCOUNTER 2021-10-22 15:45 | Outpatient (CLI) | payer MEDICARE, OTHER, SELFPAY ==
--- NOTE | 2021-10-22 16:00 | RAD_ITS ---
STUDY: X-RAY - SACRUM/COCCYX REASON FOR EXAM: Female, 80 years old. Back pain. TECHNIQUE: 3 view(s) of the sacrum and coccyx were obtained. COMPARISON: Pelvis and left hip x-rays dated 01/13/2017. FINDINGS: Osteopenia. Osteoarthrosis of both sacroiliac joints, unchanged. Normal visualized sacral ala and fused sacral bodies. Normal sacrococcygeal junction with a normal angulation. Normal coccygeal segments. Stable arthrosis of both hips, right greater than left and arthrosis of the symphysis pubis. Coils projected over the lower abdomen and pelvis, unchanged. RAD/Sacrum-Coccyx min 2 Views IMPRESSION: Osteopenia with osteoarthritic changes as described. No acute abnormality, evidence of erosive changes or fusion. Electronically Signed: Ehsan Erwin MD at 9:14 EST , Service support ,
== END 2021-10-22 23:59 | disposition short-term general hospital (02) ==
LOC: RAD 15:53
PROVIDERS: PCP Family Medicine; Referring Provider Anesthesiology Pain Medicine; Visit Provider Anesthesiology Pain Medicine
DX: M51.37 Other intervertebral disc degeneration, lumbosacral region (principal)
CPT/HCPCS: 72220

== ENCOUNTER 2021-11-16 18:31 | Emergency (ER) | payer MEDICARE, OTHER, SELFPAY ==
[2021-11-16 18:32] VITALS: BP 154/84; PULSE 73; RESP 15; TEMP 36.3; O2SAT 98; BMI 27.6
[2021-11-16 18:41] VITALS: BP 154/84; PULSE 71; RESP 16; O2SAT 97
[2021-11-16] MEDS: oxyCODONE 5 MG Tablet PO (19:48)
--- NOTE | 2021-11-16 19:55 | RAD_ITS ---
INDICATION: pain EXAMINATION/TECHNIQUE: X-RAY - RIGHT XR Shoulder Min 2 Views 4 VIEWS COMPARISON: None. FINDINGS: SOFT TISSUES: No soft tissue swelling or gas. No radiopaque foreign body. BONES/JOINTS: No acute fracture or malalignment. Mild degenerative AC joint arthropathy. No significant degenerative glenohumeral joint arthropathy. No sclerotic or destructive changes observed. Note of moderate intimal calcifications thoracic aortic arch. RAD/Shoulder min 2 Views IMPRESSION: Mild degenerative AC joint arthropathy. Electronically Signed: Rl Davila DO at 20:23 EST ,
--- NOTE | 2021-11-16 21:27 | ED.VIS.FALL ---
HPI HPI - Fall History of Present Illness Chief Complaint: Fall Narrative Narrative: 80-year-old female presenting after mechanical fall. She states she was in a changing room and she tried to change into a different pair pants. She had 1 leg down in 1 line up and fell hitting her right shoulder on the bench. No head injury or LOC. Patient denies dizziness, lightheadedness, nausea, vomiting. She only complains of right shoulder pain. She states she was initially able to move this and now it hurts too much to move. She denies injury elsewhere. [facility] Medical History (Updated 07/05/21 @ 14:[address] Jonatan Streeter MD) Chest pain Essential hypertension GERD (gastroesophageal reflux disease) History of benign breast biopsy Lumbar spinal stenosis Mixed hyperlipidemia Opioid dependence Palpitations Small bowel obstruction Home Medications lisinopril 10 mg tablet 10 mg PO DAILY 10/04/19 [History Last Taken 11/09/19] oxycodone 5 mg tablet 5 mg PO DAILY 10/04/19 [History Last Taken Unknown] aspirin 81 mg tablet,delayed release 81 mg PO DAILY 10/07/19 [History Last Taken 11/09/19] famotidine 40 mg tablet 40 mg PO DAILY tab 05/01/21 [History Last Taken Unknown] uiuguozm-pva-hbsz-FA-Ca carb-vit K 18 mg iron-400 mcg-500 mg tablet 1 tab PO DAILY 05/01/21 [History Last Taken Unknown] omeprazole 40 mg capsule,delayed release 40 mg PO DAILY cap 05/01/21 [History Last Taken Unknown] valsartan 320 mg-hydrochlorothiazide 25 mg tablet 1 tab PO DAILY tab 05/01/21 [History Last Taken Unknown] ondansetron 4 mg PO Q6H PRN PRN #15 tab 06/23/21 [Rx Last Taken Unknown] promethazine 25 mg PO TID PRN #21 tab 06/24/21 [Rx Last Taken Unknown] cholecalciferol (vitamin D3) 1,250 mcg (50,000 unit) capsule 1,250 mcg PO .Every other week #2 cap 07/05/21 [Rx Last Taken Unknown] potassium chloride 20 mEq tablet,extended release(part/cryst) 20 meq PO DAILY #10 tab 07/05/21 [Rx Last Taken Unknown] Allergy/AdvReac Type Severity Reaction Status Date / Time No Known Allergies Allergy Verified 11/16/21 18:32 Family History Sister Breast cancer Surgical History H/O oophorectomy H/O total hysterectomy Hx of cholecystectomy Social History Smoking Status: Former smoker Tobacco: How many years used: 45 second hand exposure: No alcohol intake: current alcohol intake frequency: a few times a month substance use type: does not use caffeine: Yes Type: coffee Number of servings: 1 seatbelt use: always do you feel safe at home: Yes ROS ROS ED Constitutional Constitutional ED: Denies chills or fever(s) Eyes Eyes: Denies blurry vision or diplopia ENT ENT ED: Denies rhinorrhea or sore throat Cardiovascular Cardiovascular: Denies chest pain or palpitations Respiratory/Chest Respiratory/Chest: Denies cough or dyspnea Gastrointestinal Gastrointestinal: Denies abdominal pain or nausea Genitourinary Genitourinary ED: Denies dysuria or hematuria Musculoskeletal Musculoskeletal: Reports other Details: Right shoulder pain ; Denies back pain or neck pain Integumentary Denies Abrasions or rash Neurologic Neurologic: Denies headache(s), paresthesias or weakness Psychiatric Psychiatric: Denies anxiety or depression EXAM Physical Exam Const Vital Signs: 11/16/21 18:32 11/16/21 18:41 Temperature 97.4 F L Temperature Source Temporal Pulse Rate 73 71 Respiratory Rate 15 16 Respiratory Effort Normal Respiratory Depth Normal Respiratory Pattern Normal Blood Pressure 154/84 H 154/84 H Blood Pressure Mean 107 107 Pulse Ox 98 97 Oxygen Delivery Method Room Air Room Air Positive well nourished General Appearance ED: NAD HEENT Reports normocephalic atraumatic Eyes PERRL and EOMs intact bilaterally Neck full ROM and no lymphadenopathy General: Negative for tenderness Chest Wall inspection of chest normal and palpation of chest normal Resp normal respiratory effort and clear to auscultation bilaterally Cardio regular rate and regular rhythm Back/Spine Cervical Spine: Negative for cervical spine tenderness Thoracic Spine / Upper Back: Negative for thoracic spinal tenderness Lumbar Spine / Lower Back: Negative for lumbar spinal tenderness Extremity Extremity Narrative: Tenderness to palpation of right shoulder anteriorly. There is no obvious deformity. No ecchymosis or rash. Sensation is intact. Limited range of motion in flexion, adduction secondary to pain. Psych mental status grossly normal Skin Lesions: no lesions Rashes: no rashes MDM MDM MDM Narrative Medical decision making narrative: Patient given oxycodone for pain. She states she normally takes this at home for her hip pain. Patient had x-ray of the right shoulder which does not show any acute fracture or subluxation on my interpretation and the radiologist does agree. Radiologist does read this as mild degenerative AC joint arthropathy. Patient counseled on findings counseled to do range of motion exercise with her right shoulder and ice afterwards. She can take her regular oxycodone, or other [id number]-sug-[id number] medications as needed. She is to follow-up with her PCP to ensure resolution. Pressure: 1. Mechanical fall 2. Right shoulder Radiography Diagnostic Testing: Clinical Impression(s) from Imaging Studies Shoulder X-Ray 11/16/21 19:55 IMPRESSION: Mild degenerative AC joint arthropathy. Electronically Signed: Rl Davila, at 20:23 EST , Discharge Plan Triage Chief Complaint: Fall ED Provider: Alec Ga Dx/Rx/DC Orders Instructions: ED Fall Prevention, ED Shoulder Contusion Prescriptions: No Action aspirin [Adult Low Dose Aspirin] 81 mg tablet,delayed release (DR/EC) 81 mg PO DAILY RF: 0 lisinopril 10 mg tablet 10 mg PO DAILY RF: 0 oxycodone 5 mg tablet 5 mg PO DAILY RF: 0 valsartan-hydrochlorothiazide 320-25 mg tablet 1 tab PO DAILY RF: 0 famotidine 40 mg tablet 40 mg PO DAILY RF: 0 omeprazole 40 mg capsule,delayed release(DR/EC) 40 mg PO DAILY RF: 0 Women's Multivitamin 18 mg iron-400 mcg-500 mg tablet 1 tab PO DAILY RF: 0 potassium chloride 20 mEq tablet,ER particles/crystals 20 meq PO DAILY Qty: 10 RF: 0 cholecalciferol (vitamin D3) 1,250 mcg (50,000 unit) capsule 1,250 mcg PO .Every other week Qty: 2 RF: 6 ondansetron [ondansetron] 4 MG tablet 4 mg PO Q6H PRN PRN (Reason: Nausea) Qty: 15 RF: 0 promethazine 25 mg tablet 25 mg PO TID PRN (Reason: nausea and vomiting) Qty: 21 RF: 0 Primary Care Provider: Merly Lewis Referrals: Merly Lewis MD [Primary Care Provider] - Disposition Disposition: Home, Self Care Discharge Date/Time: 11/16/21 20:53
== END 2021-11-16 20:53 | disposition home or self-care (01) ==
PROVIDERS: Emergency Provider Student in an Organized Health Care Education/Training Program; PCP Family Medicine; Visit Provider Student in an Organized Health Care Education/Training Program
DX: S40.011A Contusion of right shoulder, initial encounter (principal); Z87.891 Personal history of nicotine dependence; W19.XXXA Unspecified fall, initial encounter
CPT/HCPCS: 73030; 99283

== ENCOUNTER 2021-12-05 18:03 | Outpatient (CLI) | payer MEDICARE, OTHER, SELFPAY ==
[2021-12-06 09:45] LABS: Source- Body Fluid SYNOVIAL
[2021-12-07 14:47] LABS: CRYSTALS, BODY FLUID REV
== END 2021-12-05 23:59 | disposition home or self-care (01) ==
PROVIDERS: PCP Family Medicine; Visit Provider Podiatrist
DX: M10.9 Gout, unspecified (principal)
CPT/HCPCS: 89060

== ENCOUNTER 2021-12-17 13:04 | Outpatient (CLI) | payer MEDICARE, OTHER, SELFPAY ==
[2021-12-17 14:06] LABS: Amphetamine Urine VISTA NEGATIVE (<1000 ng/mL); Barbiturate Urine VISTA NEGATIVE (< 200 ng/mL); Benzodiazepine Urine VISTA NEGATIVE (< 200 ng/mL); Cocaine Urine VISTA NEGATIVE (< 300 ng/mL); Ecstacy Urine VISTA NEGATIVE (< 500 ng/mL); Methadone Urine VISTA NEGATIVE (< 300 ng/mL); PCP Urine VISTA NEGATIVE (< 25 ng/mL); THC Urine VISTA NEGATIVE (< 50 ng/mL); Vista UDS pH Range 5
== END 2021-12-17 23:59 | disposition home or self-care (01) ==
LOC: LAB 13:06
PROVIDERS: PCP Family Medicine; Referring Provider Anesthesiology Pain Medicine; Visit Provider Anesthesiology Pain Medicine
DX: F11.20 Opioid dependence, uncomplicated (principal)
CPT/HCPCS: 80307

== ENCOUNTER 2022-01-03 10:00 | Outpatient (RCR) | payer MEDICARE, OTHER, SELFPAY ==
--- NOTE | 2021-12-11 09:33 | HP.PTEVAL ---
Patient's Visit Information JOANNA PRITCHARD is a 80 year old F referred to Physical Therapy by Dr. Merly Lewis MD with a diagnosis of R shoulder pain. Date of Evaluation: 12/11/21 Physical Therapist: Torin Monet, PT, ATC - Visit Plan Frequency: 2-3x /Week Duration: 4 Weeks Plan: R shoulder rotator cuff strengthening, scap stab ex's, AROM/PROM, UBE, and HEP - Subjective Pt reports she fell approximately 3 weeks ago and injured her R shoulder. Pt notes she had an xray at the ER which revealed no fractures. Pt reports no other previous falls. Pt notes she was in the dressing room at [facility] when her leg went out from under her which resulted in a fall. Pt is R hand dominant. Pt reports most of her pain is located on the superior/'posterior aspect of her R shoulder. Pt denies tingling or numbness in R UE at this time. Pt notes she had a cortisone injection on the R shoulder which has provided her no relief. Pt reports she is unable to lift her arm over her head at this time. Pt reports occasional sleep difficulty secondary to pain. Pt reports she is limited with all IADL's and ADL's secondary to pain. 0/10 pain at rest, 8/10 pain with any movement. - Pain R shoulder pain Pain Intensity (Out of 10): 0 Pain Intensity Range: 8 - Objective Neuro: B UE sensation is WNL to light touch. B bicepital reflex= 2/3. palpation: Pt is very tender throughout the distal portion of the supraspinatus tendon. ROM: L shoulder flex= 160, abd= 170, ER= 48, IR WNL; R shoulder flex= 20, abd= 40, ER= 0, IR WNL. MMT: L shoulder is 5/5 throughout while R shoulder is 2-/5 and painful. Special tests: pos empty can test - Balance/Special Test Scores Quick DASH Score: 59.0900 - Goals Goal 1:: Decrease R shoulder pain x 50% to aid with sleep Goal Time Frame: 4-6 Weeks Goal 2:: Increase R shoulder strength x 1 grade to aid with IADL's Goal Time Frame: 4-6 Weeks Goal 3:: Increase R shoulder flexion and abduction ROM x 30 degrees to aid with overhead activity Goal Time Frame: 4-6 Weeks Goal 4:: I with HEP Goal Time Frame: 4-6 Weeks - Rehabilitation Potential Physical Therapy Diagnosis: Pt has R shoulder pain, weakness, and limited ROM secondary to R shoulder rotator cuff pathology Rehabilitation Potential: Good - Anticipated Interventions Patient/Client Instruction: Educate patient on: Condition, Plan of Care For the Purpose of:: To facilitate caregiver knowledge Therapeutic Exercise to Include: Strength training, Endurance training, Passive ROM, Active ROM, Scapular Strength/Stabilization For the Purpose of:: To decrease pain, To increase ROM, To improve muscle performance and motor function Cryotherapy (ice pack, ice massage): Yes For the Purpose of:: To decrease pain Thank you for the opportunity to evaluate your patient. For Medicare and Medicare HMO plans, please review the plan of care and approve it. It will need to be FAXED BACK to us at [phone] for Medicare purposes. For Medicare only, by signing this I certify the plan of care. Please let me know if there are questions or concerns regarding this plan of care. Physician Signature: Date:
--- NOTE | 2022-01-03 10:28 | HP.PTDCSUM_ITS ---
It has been my pleasure to treat JOANNA PRITCHARD referred by Dr. Merly Lewis MD, with the diagnosis of R shoulder pain for a total of 10 visit(s). Discharge Date: Please see the following information for a summary of their discharge status. Subjective: I am really sore today R shoulder pain Pain Intensity (Out of 10): 7 % Improvement: 80 Objective/Function: R shoulder pain /10. R shoulder flex and abd ROM 50 degrees. R shoulder strength 2-/5. Pt is I with HEP Goal 1:: Decrease R shoulder pain x 50% to aid with sleep Goal Progress: Progressing Goal 2:: Increase R shoulder strength x 1 grade to aid with IADL's Goal Progress: Not Progressing Goal 3:: Increase R shoulder flexion and abduction ROM x 30 degrees to aid with overhead activity Goal Progress: Progressing Goal 4:: I with HEP Goal Progress: Goal Met Plan: Discharge to [facility] If there are questions or concerns regarding this patient's physical therapy, please feel free to call me at [phone]. Thank you for the referral of this patient. Sincerely, Torin Monet, PT, ATC Balance/Gait/Functional tests - Balance/Special Test Scores Quick DASH Score: [phone]
== END 2022-01-03 19:00 | disposition home or self-care (01) ==
LOC: PT 10:00
PROVIDERS: PCP Family Medicine; Referring Provider Family Medicine; Visit Provider Family Medicine
DX: M77.8 Other enthesopathies, not elsewhere classified (principal)
CPT/HCPCS: 97110; 97161; 97164

== ENCOUNTER 2022-01-31 16:47 | Outpatient (CLI) | payer MEDICARE, OTHER, SELFPAY ==
--- NOTE | 2022-01-31 17:06 | MRI_ITS ---
STUDY: MRI RIGHT SHOULDER REASON FOR EXAM: Female, 81 years old. right shoulder injury right shoulder injury TECHNIQUE: Standardized fat and water weighted pulse sequences were obtained in all 3 orthogonal planes. COMPARISON: 11/16/2021 plain film FINDINGS: Complete tear supraspinatus tendon. Complete tear infraspinatus tendon. There is subscapularis tendinosis with tendon thickening, but without a demonstrated tendon tear. Normal teres minor tendon. Atrophy of the supraspinatus muscle. Atrophy of the infraspinatus muscle. Normal subscapularis muscle. Normal teres minor muscle. Normal glenohumeral articulation. Normal humeral head and visualized proximal humerus. Normal biceps labral complex. Normal intracapsular long biceps tendon. Normal labrum. Normal capsulo- ligamentous complex. Normal rotator interval. There is mild osteoarthritis of the acromioclavicular articulation. There is no subacromial-subdeltoid bursal fluid. Normal visualized coracohumeral and coracoacromial ligaments. Normal quadrilateral space. Normal axillary space. Normal deltoid muscle. Normal trapezius muscle. MRI/Upper Ext Joint Only(Routine) IMPRESSION: Complete tear supraspinatus tendon. Complete tear infraspinatus tendon. There is subscapularis tendinosis with tendon thickening, but without a demonstrated tendon tear. Electronically Signed: Torin Diaz MD at 20:33 EDT ,
== END 2022-01-31 23:59 | disposition home or self-care (01) ==
LOC: MRI 16:49
PROVIDERS: PCP Family Medicine; Visit Provider Orthopaedic Surgery
DX: S49.91XA Unspecified injury of right shoulder and upper arm, initial encounter (principal)
CPT/HCPCS: 73221

== ENCOUNTER → 2022-04-12 | Outpatient (CLI) | payer MEDICARE, OTHER, SELFPAY ==
[2022-04-12 11:11] LABS: Anion Gap 6 (5-15); BUN 26 mg/dL (7-18); BUN/Creat Ratio 23.2 RATIO (10-20); Calcium,Total 9.1 mg/dL (8.5-10.1); Chloride 111 mmol/L (98-107); Creatinine, Serum 1.12 mg/dL (0.55-1.02); EST Glomerular Filtration Rate 50 mL/min (>60); Est Glom Filt Rate - Afr Amer 60 mL/min (>60); Glucose 95 mg/dL (74-106); Potassium 4.6 mmol/L (3.5-5.1); Sodium Level 139 mmol/L (136-145); Uric Acid 4.5 mg/dL (2.6-6.0)
== END | disposition home or self-care (01) ==
LOC: LAB 09:58
PROVIDERS: PCP Family Medicine; Referring Provider Family Medicine; Visit Provider Family Medicine
DX: M10.9 Gout, unspecified (principal)
CPT/HCPCS: 36415; 80048; 84550

== ENCOUNTER → 2022-06-05 | Outpatient (CLI) | payer MEDICARE, OTHER, SELFPAY ==
[2022-06-05 11:43] LABS: Amphetamine Urine VISTA NEGATIVE (<1000 ng/mL); Barbiturate Urine VISTA NEGATIVE (< 200 ng/mL); Benzodiazepine Urine VISTA NEGATIVE (< 200 ng/mL); Cocaine Urine VISTA NEGATIVE (< 300 ng/mL); Ecstacy Urine VISTA NEGATIVE (< 500 ng/mL); Methadone Urine VISTA NEGATIVE (< 300 ng/mL); PCP Urine VISTA NEGATIVE (< 25 ng/mL); THC Urine VISTA NEGATIVE (< 50 ng/mL); Vista UDS pH Range 5
== END | disposition home or self-care (01) ==
PROVIDERS: PCP Family Medicine; Referring Provider Anesthesiology Pain Medicine; Visit Provider Anesthesiology Pain Medicine
DX: F11.20 Opioid dependence, uncomplicated (principal)
CPT/HCPCS: 80307

== ENCOUNTER → 2022-07-19 | Outpatient (CLI) | payer MEDICARE, OTHER, SELFPAY ==
--- NOTE | 2022-07-19 08:01 | CT_ITS ---
STUDY: CT RIGHT SHOULDER REASON FOR EXAM: Female, 81 years old. OSTEOARTHRITIS RADIATION DOSAGE (If Supplied By Facility): CTDIvol = ( 22.11 ) mGy, DLP = ( 613.07 ) mGycm TECHNIQUE: The patient was scanned in a multi detector CT scanner. High resolution transaxial imaging was performed without the administration of intravenous contrast material. Sagittal and coronal images were reconstructed. Individualized dose optimization techniques were used for this CT. COMPARISON: MRI of the right shoulder dated JANUARY 31, 2022 FINDINGS: The humeral head is high riding abutting the undersurface of the acromium due to full-thickness rotator cuff tearing. There is also mild anterior subluxation of the humeral head in relation to the glenoid. A small glenohumeral joint effusion is visualized on this study. Moderate fatty atrophy of the infraspinatus and supraspinatus muscles is consistent with chronic full-thickness rotator cuff tearing. The remaining muscles of the shoulder are unremarkable. Normal coracoid process. Normal visualized lateral clavicle. There is mild osteoarthritis with articular joint space narrowing. There is a Type II morphology (curved), with a neutral orientation. There is no evidence of a fracture or avascular necrosis. CT/Extremity Upper without Contra IMPRESSION: 1. Full-thickness rotator cuff tears resulting in subluxation and high riding of the humeral head Electronically Signed: Trevor Lilly MD at 12:30 EDT ,
== END | disposition home or self-care (01) ==
LOC: CT 07:56
PROVIDERS: PCP Family Medicine; Referring Provider Student in an Organized Health Care Education/Training Program; Visit Provider Student in an Organized Health Care Education/Training Program
DX: M19.011 Primary osteoarthritis, right shoulder (principal)
CPT/HCPCS: 73200

== ENCOUNTER 2022-08-22 15:19 | Observation (INO) | payer MEDICARE, OTHER, SELFPAY ==
--- NOTE | 2022-08-08 09:53 | EKG12_ITS ---
Test Reason : PRE-OP Blood Pressure : / mmHG Vent. Rate : 068 BPM Atrial Rate : 068 BPM P-R Int : 188 ms QRS Dur : 084 ms QT Int : 388 ms P-R-T Axes : 021 024 037 degrees QTc Int : 412 ms Normal sinus rhythm Normal ECG When compared with ECG of 15-MAR-2015 19:38, No significant change was found Confirmed by ROLY LOZANO, JANICE ([id number]), slot editor CALEB KAY ([id number]) on 08/12/2022 2:21:10 PM Referred By: Raúl Corcoran Confirmed By:JANICE DUNHAM MD
--- NOTE | 2022-08-08 10:00 | RAD_ITS ---
STUDY: X-RAY CHEST REASON FOR EXAM: Female, 81 years old. PREOP TECHNIQUE: PA and lateral views of the chest. COMPARISON: 11/02/2019 FINDINGS: The lungs are clear and expanded. There is no demonstrated pleural abnormality. Normal size heart. Normal mediastinum and cecilia. Normal visualized pulmonary arteries. Normal visualized aortic arch and descending thoracic aorta. Normal visualized thoracic spine. Normal visualized ribs, clavicles, and shoulders. There is no demonstrated abnormality of the visualized soft tissue structures of the upper abdomen. RAD/Chest PA and Lateral IMPRESSION: Normal x-ray examination of the chest. Electronically Signed: Kieran Vincent MD at 10:17 EDT ,
[2022-08-08 11:06] LABS: Absolute Lymphocyte Count 2.14 X10^3/uL (0.83-4.51); Absolute Neutrophil Count 3.9 X10^3/uL (2.0-7.7); Basophil# 0.03 X10^3/uL; Basophil% 0.4 % (0-1); Eosinophil# 0.17 X10^3/uL; Eosinophils% 2.5 % (0-5); Hematocrit 38.4 % (37-47); Hemoglobin 12.6 g/dL (12.0-15.0); Lymphocyte # 2.14 X10^3/ul (0.83-4.51); Lymphocyte % 31.2 % (19-41); Mean Corp Hgb Conc 32.8 g/dL (32-36); Mean Corpuscular Hgb 30.4 pg (27.0-32.0); Mean Corpuscular Volume 92.5 fL (81-99); Mean Platelet Vol. 9.8 fl (6.2-12.0); Monocyte# 0.59 X10^3/uL; Monocyte% 8.6 % (0-10); NRBC Flagged by Analyzer 0 % (0-5); Neutrophil # 3.92 X10^3/uL (2.7-7.7); Neutrophil % 57.2 % (47-70); Platelet Count 215 K/mm3 (150-450); RBC Distribution Width CV 14.1 % (11.6-14.6); Red Blood Count 4.15 M/mm3 (4.2-5.4); White Blood Count 6.9 K/mm3 (4.4-11.0)
[2022-08-08 11:14] LABS: Prothrombin Time (Protime)PT. 13.3 SECONDS (11.7-14.9)
[2022-08-08 11:15] LABS: Partial Thromboplast Time 25.3 Seconds (24.1-36.2)
[2022-08-08 11:24] LABS: Anion Gap 6 (5-15); BUN 23 mg/dL (7-18); BUN/Creat Ratio 21.9 RATIO (10-20); Calcium,Total 9.2 mg/dL (8.5-10.1); Chloride 106 mmol/L (98-107); Creatinine, Serum 1.05 mg/dL (0.55-1.02); EST Glomerular Filtration Rate 54 mL/min (>60); Est Glom Filt Rate - Afr Amer 65 mL/min (>60); Glucose 106 mg/dL (74-106); Sodium Level 140 mmol/L (136-145)
[2022-08-08 11:35] LABS: AST(SGOT) 16 U/L (15-37); Alanine Aminotransfer ALT/SGPT 18 U/L (13-56); Alkaline Phosphatase 65 U/L (45-117); Bilirubin, Direct 0.23 mg/dL (0.00-0.30); Globulin 3.4 g/dL (2.2-4.2); Magnesium 2.3 mg/dL (1.6-2.6); Protein, Total 7.4 g/dL (6.4-8.2)
[2022-08-22] VITALS (12 sets, daily range): BP systolic 125–145; BP diastolic 50–70; PULSE 63–75; RESP 15–20; TEMP 36.3–37; O2SAT 89–99; BMI 26.3
[2022-08-22] MEDS: Magnesium 1 GM over 15 mins IV (12:14)
[2022-08-22] MEDS: Lactated Ringers 1,000 ML 999 ML IV ×2 (12:14→15:40)
[2022-08-22] MEDS: Lactated Ringers 1,000 ML 75 ML IV (12:14)
[2022-08-22] MEDS: Acetaminophen 500 MG Tablet 1000 MG PO ×2 (12:15→21:33)
[2022-08-22] MEDS: Gabapentin 600 MG Tablet PO (12:15)
[2022-08-22 12:41] LABS: Bedside Glucose 93 mg/dL (74-106)
[2022-08-22] MEDS: Cefazolin 2 GM in 0.9% Normal Saline 100 ML IV (13:18)
[2022-08-22] MEDS: dexAMETHasone 10 MG/ML Vial IV (13:29)
--- NOTE | 2022-08-22 13:30 | BON_PTH ---
PATIENT: JOANNA PRITCHARD LOC: [facility] U#:[id number] AGE/SX: 81/F ROOM: AZ316 RE08/22/[address]: Dr. Raúl Corcoran DO : [id number] BED: 1 DIS: 08/23/2022 SPEC #: [id number] RECD: 08/23/22 11:37 STATUS: CANDE ANJU #: [id number] RIKY: 08/22/22 13:[address]: Raúl Corcoran DEPT: SURGICAL PATHOLOGY RECD BY: Jerilyn John ENTERED: 08/23/22 12:46 SP TYPE: Bone OTHR DR: Dr. Merly Lewis MD Tissues: Shoulder, NOS Procedures: Decalcification bone/plaque Surgery Specimen Level IV HEADER OPERATION: ERAS, total shoulder replacement, reverse PRE-OP DIAGNOSIS: Rotator cuff tear right shoulder, osteoarthritis TISSUE SUBMITTED: Right shoulder bone MICROSCOPIC DIAGNOSIS Right shoulder bone, total shoulder replacement/resection: Focal minimal degenerative osteoarthritic changes. SJ:shannon 08/30/2022 MICROSCOPIC DESCRIPTION Slides are reviewed. GROSS DESCRIPTION Received in fixative is one container labeled with the patient's name and designated right shoulder bone. The specimen consists of a discoid fragment of humeral bone measuring 4.5 cm in diameter and 2.2 cm in thickness. The articular surface displays focal osteophyte formation with possible bone erosion. Java Analyst sections are submitted in one cassette after decalcification. / AM:shannon 08/23/2022 TC:5 CPT: 60142, 77478
[2022-08-22] MEDS: TXA 1000mg in NS100 100ml (IVPB at Closure) 660 MG IV (13:32)
[2022-08-22] MEDS: TXA 1000mg in NS100 100ml (IVPB at Incision) 660 MG IV (14:58)
--- NOTE | 2022-08-22 15:40 | RAD_ITS ---
INDICATION: post op EXAMINATION/TECHNIQUE: X-RAY - RIGHT XR Shoulder Min 2 Views 2 VIEWS COMPARISON: 11/16/2021 FINDINGS: Interval right shoulder replacement with the prosthesis in anatomic position and alignment. Gas within the operative site. Mild degenerative changes at the acromioclavicular joint again noted. RAD/Shoulder min 2 Views IMPRESSION: Status post right shoulder replacement. Electronically Signed: Golden Olmos MD at 16:56 EDT ,
--- NOTE | 2022-08-22 15:48 | PCM.OPRPT ---
Report of Operation Date of Procedure: 08/22/22 Description of Surgical Findings:: Preoperative diagnosis: Right shoulder rotator cuff arthropathy Postoperative diagnosis: Right shoulder rotator cuff arthropathy Procedure: Right reverse total shoulder arthroplasty Surgeon: Raúl Corcoran DO Material Assembler: Olesya Walton PA-C Anesthesia: General endotracheal with interscalene block Knuckle Bender: Aditya Werner CRNA Complications: None apparent Drains: None Estimated blood loss: 200 cc Urinary output: None cc IV fluids: 1200 cc crystalloid Specimens: None Surgical implants: Tornier Aequalis PerFORM+ reversed lateralized baseplate 25 mm diameter with + 6 mm offset, standard glenosphere cobalt chrome 36 mm diameter, 35 mm central screw, peripheral screws 38 mm, 18 mm, 22 mm, 18 mm. Tornier perform size 2 short standard humeral stem with +3 mm 36 mm diameter ultrahigh molecular weight polyethylene insert retentive insert Surgical indications: This is a 81-year-old female with persistent right shoulder pain. Patient has findings of rotator cuff arthropathy on x-ray. She failed nonoperative management form of activity modification, NSAIDs, injections and therapy. I saw the patient in the outpatient setting and I recommended a reverse shoulder arthroplasty. We obtained a preoperative CT scan for planning. The risks, benefits, alternatives the procedure was reviewed with the patient and he agreed to proceed. Risks included but were not limited to bleeding, infection, instability, loss of life or limb, risk of anesthesia, neurovascular injury, persistent pain, stiffness, prolonged immobilization, need for additional surgery, loosening of orthopedic hardware. She expressed understanding and wished to proceed with surgery. Surgical details: Patient arrived to [facility] morning of the procedure and was greeted by the same day surgery staff. Prior to her procedure, I greeted the patient in the preoperative holding area I identified the patient by name, record number, and date of . Informed consent was confirmed. The operative extremity was marked. All questions were answered to patient satisfaction. Patient was also seen by anesthesia staff. Interscalene block was administered prior to procedure for postoperative analgesia. At time of her procedure, patient was brought to the operative suite and positioned supine on a standard table with a beachchair attachment. General anesthesia was induced after all bony prominences were well-padded. Endotracheal tube was placed. After adequate anesthesia and securing the tube, we prepared the patient to be positioned in the beachchair position. A well-padded head neck surgeon was applied. The nonoperative extremity was placed in a well arm maurice. She was then brought into the beachchair position after we confirmed an appropriate blood pressure. We then spun the bed 45 degrees. The operative extremity was then prepared. In the butterfly wing of the bed was removed and a well-padded torso strap was applied to secure the patient to the bed. The operative extremity was now free. We then prepped and draped the right upper extremity in normal, sterile orthopedic fashion. We then performed a timeout with all parties in attendance in agreement with the side, site, and operation be performed. 2 g Ancef was administered prior to incision by anesthesia staff, as well as 1 g TXA IV. No concerns were voiced and we elected to proceed. I first marked a standard deltopectoral incision just lateral to the coracoid process in line with the long axis of the humerus. Skin was sharply incised with 10 blade scalpel. I then dissected bluntly through the subcutaneous layers and found the fat stripe between the deltoid and pectoralis major. The cephalic vein was then identified and protected. It was retracted laterally with the deltoid. I then bluntly dissected underneath the deltoid with a Wesley elevator. Uhnter retractor was placed. The upper 1 cm of the pectoralis major was released. I then identified the long head of the biceps tendon in the intertubercular groove. This was tenodesed in situ with #2 FiberWire. I then amputated the biceps proximal to the tenodesis site and followed the tendon to the supraglenoid tubercle where it was amputated. This identified the lesser and greater tuberosities. The supraspinatus was completely torn and retracted with an exposed greater tuberosity. I then performed a subscapularis peel while rotating the humerus externally. I tagged the subscapularis for possible repair later with a tagging suture. I then made a anatomic neck cut of the cartilaginous surface of the humeral head. A size 2 stem was sized for and the central pin was drilled centrally in the metaphysis engaging the lateral cortex. I then used the cannulated reamer to ream for the inlay stem. I sequentially broached to a size #2 stem that achieved excellent rotational and axial stability. Stem was left in place while we turned our attention to the glenoid. I subluxed the humerus posteriorly. I then placed retractors around the posterior and anterior glenoid to expose the glenoid. Glenoid labrum was removed with Bovie cautery protecting the axillary nerve, which was in close proximity to the glenoid neck. We then used the custom guide from [employer]ars[employer] to position our centering pin. Guide was removed and pin was analyzed and compared to preoperative planning. It appeared to be in appropriate position. The inferior lip of the glenoid given her superior wear was reamed to a flat cortical rim. We then remove the reamer and used the cannulated drill for the central 35 mm screw. Pin was removed. Post and baseplate was assembled on the back table. We then inserted the baseplate and central screw the assembled baseplate to an appropriate depth. A [place] was used to confirm depth. Cortical screws then were placed in the 4 peripheral holes with good purchase. The baseplate had excellent purchase and the entire scapula would rotate with rotation of the baseplate. We then impacted the 36 mm glenosphere with a standard eccentricity. Locking screw was then placed in the centering hole of the glenosphere with excellent purchase. We then removed retractors and turned our attention back to the humerus. I trialed a 0 mm polyinsert. This achieved excellent range of motion without impingement. I selected this initially as our final implant and performed a final reduction. During final range of motion testing I was able to lever the shoulder out without excessive force and I was concerned about stability. I made the decision to remove the polyethylene insert and retrial. We retried with a +3 mm and +6 mm poly-. The +6 mm poly felt to excessively tension the deltoid and strap muscles. To achieve better stability with a +3 mm trial, I trialed a retentive poly which did not significantly diminish her range of motion but achieved better stability. We selected this as our final size. We removed trials from the humerus after final dislocation. I copiously irrigated the canal. Broach was placed on hand and then impacted to an appropriate depth. Final +6 mm polyethylene insert was placed. Final reduction was then performed. I then copiously irrigated the wound with sterile Betadine solution, irrisept and normal saline solution. Hemostasis was excellent. The axillary nerve was visualized and appeared to be intact. The subscapularis was then identified with a tagging suture. Repair would have been likely under undue tension and likely failed. I elected to not perform a subscapularis repair. We then copiously irrigated the wound with normal saline solution. We reapproximated the interval with 0 Vicryl suture. Subcutaneous layers were reapproximated with 2 -0 Vicryl suture. Skin was finally running V-Loc 3-0 Monocryl suture and Dermabond. A sterile silver Mepilex dressing was applied. Patient was then placed in a abduction pillow sling. Patient tolerated procedure well without complication. She was positioned back in the supine position extubated in the operative suite. She was transferred to the [facility] and subsequently to PACU in stable condition. Need for skilled assistant golf course superintendent: Olesya Walton PA-C was critical to the outcome of the case. During the course of the procedure the physician assistant golf course superintendent played a vital role. Her intimate knowledge of my steps in the procedure aided in safe and expedient completion of the procedure. The PA played a vital role in positioning particularly in obtaining the appropriate positioning. The PA was also vital in the retraction of soft tissues during the exposure and projecting vital structures. The PA was also vital and protecting soft tissues during times of bony cuts. She also played a vital role in closure with my direct supervision. The PA was also important during reduction and dislocation of the joint and trials intraoperatively. Intraoperative medications: 2 g Ancef IV, 1 g TXA IV x2 Post Operative Plan: Patient will be placed in observation overnight. Weightbearing: Nonweightbearing right upper extremity, okay for pendulums. Range of motion of wrist elbow and hand as tolerated. Antibiotics: 2 g Ancef IV prior to incision DVT Prophylaxis: Aspirin 81 mg twice daily starting tomorrow Hunt: None Dressing: Maintain silver dressing x7 days. Okay to shower dressing on started on day 4 X-Rays: 2 weeks postop in the office Pain Medication: Oxycodone as prescribed by her pain management physician Follow-up: 2 weeks post-operatively with me in the office
[2022-08-22] MEDS: Cefazolin 1 GM/50 ML BAG IV (21:33)
[2022-08-22] MEDS: Senna/Docusate Sodium 1 Tablet 2 TABLET PO (21:33)
[2022-08-23 01:53] VITALS: BP 121/58; PULSE 61; RESP 18; TEMP 36.9; O2SAT 95
[2022-08-23] MEDS: Cefazolin 1 GM/50 ML BAG IV (05:28)
[2022-08-23] MEDS: Acetaminophen 500 MG Tablet 1000 MG PO (05:28)
[2022-08-23 07:16] LABS: Hemoglobin 11.5 g/dL (12.0-15.0); Mean Corp Hgb Conc 32.9 g/dL (32-36); Mean Corpuscular Hgb 29.6 pg (27.0-32.0); Mean Corpuscular Volume 90.2 fL (81-99); Platelet Count 182 K/mm3 (150-450); RBC Distribution Width CV 14.3 % (11.6-14.6); Red Blood Count 3.88 M/mm3 (4.2-5.4); White Blood Count 9.6 K/mm3 (4.4-11.0)
[2022-08-23 07:41] LABS: Anion Gap 9 (5-15); BUN 19 mg/dL (7-18); BUN/Creat Ratio 18.8 RATIO (10-20); Calcium,Total 8.9 mg/dL (8.5-10.1); Chloride 107 mmol/L (98-107); Creatinine, Serum 1.01 mg/dL (0.55-1.02); EST Glomerular Filtration Rate 56 mL/min (>60); Est Glom Filt Rate - Afr Amer 68 mL/min (>60); Estimated Creatinine Clearance 42.28 ml/min; Glucose 116 mg/dL (74-106); Sodium Level 142 mmol/L (136-145)
--- NOTE | 2022-08-23 07:46 | PCM.PN.ORT ---
Subjective Subjective Patient seen and examined. Denies any new complaints. Tolerating oral intake without nausea or vomiting. Denies chest pain, shortness of breath, fevers or chills. Objective Data Objective Data Vital Signs: Vital Signs Temp Pulse Resp BP Pulse Ox O2 Del Method O2 Flow Rate 98.4 F 61 18 121/58 H 95 Room Air 2 08/23/22 01:53 08/23/22 01:53 08/23/22 01:53 08/23/22 01:53 08/23/22 01:53 08/23/22 01:53 08/22/22 17:45 Oxygen Flow Rate (L/min) 2 Oxygen Delivery Method Room Air Weight: 163 lb 2.273 oz Body Mass Index (BMI) 26.3 Intake & Output: Intake and Output for Last 24 Hours 08/21/22 08/22/22 08/23/22 23:59 23:59 23:59 Intake Total 2858.25 / 3158.25 550 / 550 Balance 2858.25 / 3158.25 550 / 550 Lab / Micro Data Result Diagrams: 08/23/22 06:15 08/23/22 05:45 Labs: Laboratory Results - last 24 hr 08/22/22 11:59: POC Glucose 93 08/23/22 05:45: Sodium 142, Potassium 4.0, Chloride 107, Carbon Dioxide 26.0, Anion Gap 9, BUN 19 H, Creatinine 1.01, Estim Creat Clear Calc 42.28, Est GFR (MDRD) Af Amer 68, Est GFR (MDRD) Non-Af 56 L, BUN/Creatinine Ratio 18.8, Glucose 116 H, Calcium 8.9 08/23/22 06:15: WBC 9.6, RBC 3.88 L, Hgb 11.5 L, Hct 35.0 L, MCV 90.2, MCH 29.6, MCHC 32.9, RDW Std Deviation 47.0 H, RDW Coeff of Hossein 14.3, Plt Count 182, MPV 10.0 Micro: Microbiology 08/08/22 10:12 Swab (Method) Nasal Screen MRSA/MSSA - Final Radiography Diagnostic Testing: Radiology Impression Shoulder X-Ray 08/22/22 15:40 IMPRESSION: Status post right shoulder replacement. Electronically Signed: Golden Olmos MD at 16:56 EDT , Physical Exam Narrative General - A&Ox3, NAD. VSS/AF. Right upper Extremity - SILT & 5/5 in radial, ulnar, musculocutaneous, axillary, and median nerve distributions. Radial, ulnar pulses 2+. Compartments soft and compressible. BCR in finger tips. Incisional dressing C/D/I. Assessment & Plan Assessment/Plan (1) Rotator cuff tear, right: PLAN: POD#1 s/p right reverse shoulder arthroplasty - Patient doing well this morning. Plan for discharge home today. - Pain control - PT/OT - DVT PPX -81 mg aspirin, SCDs, early mobilization
--- NOTE | 2022-08-23 07:48 | DCINST_ITS ---
Discharge Instructions Follow Up Care Test Results: Test results from this visit will be discussed in further detail at your follow- up appointment, if applicable. Discharge Plan Admission Admit Date/Time: 08/22/22 15:19 Primary Reason for Your Visit: Right shoulder replacement Attending Provider: Raúl Corcoran Primary Care Provider: Merly Lewis Instructions Additional Instructions / Restrictions: Follow preprinted instructions from your surgeons office. Discharge Orders/Prescriptions Prescriptions: No Action aspirin [Adult Low Dose Aspirin] 81 mg tablet,delayed release (DR/EC) 81 mg PO DAILY omeprazole 40 mg capsule,delayed release(DR/EC) 40 mg PO DAILY Women's Multivitamin 18 mg iron-400 mcg-500 mg tablet 1 tab PO DAILY potassium chloride 20 mEq tablet,ER particles/crystals 20 meq PO DAILY Qty: 10 0RF allopurinol 100 mg Tablet 100 mg PO DAILY oxycodone-acetaminophen [Percocet] 5-325 mg Tablet 1 tab PO Q6H PRN (Reason: Pain) valsartan-hydrochlorothiazide 320-25 mg Tablet 1 tab PO DAILY Referrals / Follow Up: Merly Lewis MD [Primary Care Provider] - Raúl Corcoran DO [Med Staff - Active Staff] - Within 2 Weeks Disposition Disposition (needs filled in before D/C Order can be placed): Home, Self Care
[2022-08-23 07:55] VITALS: BP 140/67; PULSE 71; RESP 18; TEMP 36.4; O2SAT 98
[2022-08-23] MEDS: Potassium Chloride Oral Tablet 20 MEQ PO (08:40)
[2022-08-23] MEDS: Aspirin E.C. 81 MG Tablet PO (08:41)
--- NOTE | 2022-08-23 09:45 | CASEMGMT ---
ED HAWKINS Assessment: Face to Face with pt for initial transition planning/care coordination assessment. ED HAWKINS introduced self and role at [facility], pt voices understanding and consents to assessment. Pt is A/O x4 and answers all questions appropriately at this time. Pt dressed, sitting up in chair. Pt's and dtr arrived during the assessment. Care providers, pharmacy, and demographics verified/updated. Admitting Dx: Rt Total Shoulder Reverse. PCP: Joshua. Specialists: Basali, Pain Management; Spittjuana, Ortho. Preferred [facility]acy: [facility]. Insurance: Medicare Part A B, AARP. Prescription Benefit: yes. LW/HPOA: Pt has a LW/HPOA. Dtr is POA. Pt advised LW/HPOA are not on file and encouraged to bring the paperwork in if desired. LNOK: Ling Wheeler, Dtr; Samson Ventura, . Living Arrangements: Pt lives with her in a one story home. There is a family room in the basement. However, Pt will be staying on the main floor. There is one step to get into the home with a rail in place. Pt denied any issues with ambulating stairs. Pt reports being I in ADLs. Transportation: Pt drives self and denies concerns with transportation. Pt's daughters and neighbors will assist with transportation after dc. DME/HHC/SNF: Pt has a cane. Pt denied any current or past HHC including therapy. Pt denied any SNF stays. Pt states no concerns with going home at time of dc. Pt states no further concerns/needs. CM to follow. Advised pt to ask CM if any further question/concerns/needs arise, voices understanding. Pt Goal: Home with outpt therapy at [facility]. Plan:?Home with outpt therapy at [facility].
[2022-08-23 10:00] VITALS: BP 140/67; PULSE 71; RESP 18; TEMP 37.1; O2SAT 98
[2022-08-23 10:26] VITALS: RESP 18
[2022-08-23] MEDS: hydroCHLOROthiazide 25 MG Tablet PO (11:19)
[2022-08-23] MEDS: Allopurinol 100 MG Tablet PO (11:19)
[2022-08-23] MEDS: Senna/Docusate Sodium 1 Tablet 2 TABLET PO (11:19)
[2022-08-23] MEDS: Pantoprazole Sodium 40 MG Tablet PO (11:20)
[2022-08-23] MEDS: Losartan Potassium 100 MG Tablet PO (11:20)
[2022-08-23 12:04] VITALS: BP 134/70; PULSE 62; RESP 18; TEMP 36.8; O2SAT 95
--- NOTE | 2022-08-25 07:06 | PCM.DC.SUM ---
Providers Date of Admission: 08/22/22 Primary Care Physician: Dr. Merly Lewis MD Reason For Visit: RT TOTAL SHOULDER REVERSE Diagnosis Discharge Diagnosis (1) Rotator cuff tear, right: Status: Acute Code(s): M75.101 - Unspecified rotator cuff tear or rupture of right shoulder, not specified as traumatic Plan: POD#1 s/p right reverse shoulder arthroplasty - Patient doing well this morning. Plan for discharge home today. - Pain control - PT/OT - DVT PPX -81 mg aspirin, SCDs, early mobilization Medications at Discharge Home Medications aspirin 81 mg tablet,delayed release (Adult Low Dose Aspirin) 81 mg PO DAILY 10/07/19 kbdjxpsy-fin-gtpt-FA-Ca carb-vit K 18 mg iron-400 mcg-500 mg tablet (Women's Multivitamin) 1 tab PO DAILY 05/01/21 omeprazole 40 mg capsule,delayed release 40 mg PO DAILY 05/01/21 potassium chloride 20 mEq tablet,extended release(part/cryst) 20 meq PO DAILY #10 tabs 07/05/21 allopurinol 100 mg tablet 100 mg PO DAILY 08/05/22 oxycodone-acetaminophen 5 mg-325 mg tablet (Percocet) 1 tab PO Q6H PRN Pain 08/05/22 valsartan 320 mg-hydrochlorothiazide 25 mg tablet 1 tab PO DAILY 08/05/22 acetaminophen 500 mg tablet 1,000 mg PO Q8 #25 tabs 08/23/22 aspirin 81 mg capsule 81 mg PO BID 28 days #56 caps 08/23/22 sennosides 8.6 mg-docusate sodium 50 mg tablet (Stool Softener-Stimulant Laxative) 2 tab PO BID 7 days #28 tabs 08/23/22 Hospital Course Summary of Care Provided Minutes Spent on Discharge: 15 Hospital Course: Patient underwent uncomplicated right reverse shoulder arthroplasty for chronic rotator cuff tear and rotator cuff tear arthropathy 08/22/2022. She was placed in observation overnight for early convalescence and pain control. Pain was adequately controlled on postoperative day #1. She mobilized well with occupational therapy. She was able be safely discharged home in stable condition on postoperative day #1. No medical or surgical complications were encountered throughout her stay. Physical Exam Narrative General - A&Ox3, NAD. VSS/AF. Right upper Extremity - SILT & 5/5 in radial, ulnar, musculocutaneous, axillary, and median nerve distributions. Radial, ulnar pulses 2+. Compartments soft and compressible. BCR in finger tips. Incisional dressing C/D/I. Weight / BMI Weight Weight: 163 lb 2.273 oz Body Mass Index (BMI) 26.3 ABG / Lab / Microbiology Data Result Diagrams: 08/23/22 06:15 08/23/22 05:45 Microbiology: Microbiology 08/08/22 10:12 Swab (Method) Nasal Screen MRSA/MSSA - Final Meaningful Use Info Meaningful Use Diagnoses (Choose all that apply): None applicable Discharge Plan Admission Admit Date/Time: 08/22/22 15:19 Primary Reason for Your Visit: Right shoulder replacement Attending Provider: Raúl Corcoran Primary Care Provider: Merly Lewis Instructions Additional Instructions / Restrictions: Follow preprinted instructions from your surgeons office. Discharge Orders/Prescriptions Prescriptions: New sennosides-docusate sodium [Stool Softener-Stimulant Laxat] 8.6-50 mg Tablet 2 tab PO BID 7 Days Qty: 28 0RF acetaminophen 500 mg Tablet 1,000 mg PO Q8 Qty: 25 0RF aspirin 81 mg capsule 81 mg PO BID 28 Days Qty: 56 0RF Continued omeprazole 40 mg capsule,delayed release(DR/EC) 40 mg PO DAILY Women's Multivitamin 18 mg iron-400 mcg-500 mg tablet 1 tab PO DAILY potassium chloride 20 mEq tablet,ER particles/crystals 20 meq PO DAILY Qty: 10 0RF allopurinol 100 mg Tablet 100 mg PO DAILY oxycodone-acetaminophen [Percocet] 5-325 mg Tablet 1 tab PO Q6H PRN (Reason: Pain) valsartan-hydrochlorothiazide 320-25 mg Tablet 1 tab PO DAILY Held aspirin [Adult Low Dose Aspirin] 81 mg tablet,delayed release (DR/EC) 81 mg PO DAILY Hold Instructions: Resume on 09/20/22. Referrals / Follow Up: Merly Lewis MD [Primary Care Provider] - Raúl Corcoran DO [Med Staff - Active Staff] - Within 2 Weeks Disposition Disposition (needs filled in before D/C Order can be placed): Home, Self Care
== END 2022-08-23 12:14 | disposition home or self-care (01) ==
LOC: SDC 15:34 → MS3 15:34
PROVIDERS: Anesthesiology; Admitting Provider Student in an Organized Health Care Education/Training Program; PCP Family Medicine; Referring Provider Student in an Organized Health Care Education/Training Program; Visit Provider Student in an Organized Health Care Education/Training Program
PROC: (CPT 23472; principal; 2022-08-22 13:00)
DX: M75.101 Unspecified rotator cuff tear or rupture of right shoulder, not specified as traumatic (principal); Z79.899 Other long term (current) drug therapy; Z79.82 Long term (current) use of aspirin; I10 Essential (primary) hypertension; Z86.718 Personal history of other venous thrombosis and embolism; Z87.891 Personal history of nicotine dependence; E78.2 Mixed hyperlipidemia; K21.9 Gastro-esophageal reflux disease without esophagitis; Z86.2 Personal history of diseases of the blood and blood-forming organs and certain disorders involving the immune mechanism
CPT/HCPCS: 23472; 01638; 64415; 36415; 71046; 73030; 80048; 80076; 82962; 83735; 85025; 85027; 85610; 85730; 87081; 88305; 88311; 93005; 96365; 96366; 97166; 99218; 99251; 99252; C1776; J7120; G0378; G0463; J2405; J3475

== ENCOUNTER 2023-01-16 12:00 | Outpatient (RCR) | payer MEDICARE, OTHER, SELFPAY ==
--- NOTE | 2022-09-09 09:59 | HP.PTDCSUM ---
It has been my pleasure to treat JOANNA PRITCHARD referred by EMIGDIO Ronquillo, with the diagnosis of S/P R TSA (08-22-22) for a total of 1 visit(s). Discharge Date: Please see the following information for a summary of their discharge status. R shoulder pain Pain Intensity (Out of 10): 0 Goal 1:: I HEP Goal 2:: Increase R shoulder AROM to 120 degrees elevation with no pain Goal 3:: Be able to return to full use of her R arm with ADLs with no pain Plan: 2-3X/ week for 8 weeks for R shoulder PROM If there are questions or concerns regarding this patient's physical therapy, please feel free to call me at [phone]. Thank you for the referral of this patient. Sincerely, Laury Westbrook, WARD Balance/Gait/Functional tests - Balance/Special Test Scores Quick DASH Score: 70.4554
--- NOTE | 2022-09-09 10:00 | HP.PTEVAL_ITS ---
Patient's Visit Information JOANNA PRITCHARD is a 81 year old F referred to Physical Therapy by EMIGDIO Ronquillo with a diagnosis of S/P R TSA (08-22-22). Date of Evaluation: 09/09/22 Physical Therapist: WARD Quinones - Visit Plan Frequency: 2-3x /Week Duration: 2 Months Plan: 2-3X/ week for 8 weeks for R shoulder PROM - Subjective She had R TSA on 08-22-22. Dr Corcoran did the surgery. She is in a sling (abd pillow). Needs to be in the sling till 09-20-22. She is R handed. She is sleeping ok in a lounge chair. She has no N&T. She started to supervisor opening and picking her coffee cup this morning. She does not live a alone. She goes down steps to get to the TV room. She still drives but not currently. She is squeezing a ball and sometimes it dangles. - Pain R shoulder pain Pain Intensity (Out of 10): 0 - Objective R handed: R shoulder PROM: Flex 100 degrees and ER 20 degrees (pt is painfully guarded). Pt was not wearing her abd sling correctly so demonstrated proper ramirez. Able to do Bicep AROM and wrist pronation and supination ROM. Demonstrated pendulums R arm... - Balance/Special Test Scores Quick DASH Score: 70.4525 - Goals Goal 1:: I HEP Goal Time Frame: 6-8 Weeks Goal 2:: Increase R shoulder AROM to 120 degrees elevation with no pain Goal Time Frame: 6-8 Weeks Goal 3:: Be able to return to full use of her R arm with ADLs with no pain Goal Time Frame: 6-8 Weeks - Rehabilitation Potential Rehabilitation Potential: Good - Anticipated Interventions Patient/Client Instruction: Educate patient on: Condition, Plan of Care For the Purpose of:: To decrease pain, To decrease swelling/inflammation, To increase ROM, To improve nutrient delivery to tissue, To improve muscle performance and motor function, To improve ability to perform ADL's, To increase tolerance to activity/condition/position, To improve performance and independence with ADL's, To decrease level of supervision to perform tasks, To improve ability of physical actions for home/community/work/leisure, To improve health of tissue, To increase flexibility/ROM Therapeutic Exercise to Include: Strength training, Postural training, Flexibilty training, Neuromotor development, Passive ROM, Active ROM, Scapular Strength/Stabilization For the Purpose of:: To decrease pain, To increase ROM, To improve nutrient delivery to tissue, To improve muscle performance and motor function, To improve ability to perform ADL's, To increase tolerance to activity/condition/position, To improve health of tissue, To decrease soft tissue restriction, To increase flexibility/ROM Manual Therapy Techniques to Include: Passive ROM For the Purpose of:: To decrease pain, To decrease swelling/inflammation, To increase ROM, To improve nutrient delivery to tissue Cryotherapy (ice pack, ice massage): Yes Thermo therapy (hot pack): Yes For the Purpose of:: To decrease pain, To decrease swelling/inflammation, To inc rease ROM, To improve nutrient delivery to tissue Thank you for the opportunity to evaluate your patient. For Medicare and Medicare HMO plans, please review the plan of care and approve it. It will need to be FAXED BACK to us at [phone] for Medicare purposes. For Medicare only, by signing this I certify the plan of care. Please let me know if there are questions or concerns regarding this plan of care. Physician Signature: Date:
--- NOTE | 2022-09-09 14:36 | HP.PTEVAL_ITS ---
Patient's Visit Information JOANNA PRITCHARD is a 81 year old F referred to Physical Therapy by EMIGDIO Ronquillo with a diagnosis of S/P R TSA (08-22-22). Date of Evaluation: 09/09/22 Physical Therapist: WARD Quinones - Visit Plan Frequency: 2-3x /Week Duration: 2 Months Plan: 2-3X/ week for 8 weeks for R shoulder PROM. Work on PROM with ER limited to 30 degrees ER and elevation. May work on scapular retraction strength with no weight, pendulums and wrist strength. May use heat and ice as needed. should be sending over protocol. - Subjective She had R TSA on 08-22-22. Dr Corcoran did the surgery. She is in a sling (abd pillow). Needs to be in the sling till 09-20-22. She is R handed. She is sleeping ok in a lounge chair. She has no N&T. 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 She does not live a alone. She goes down steps to get to the TV room. She still drives but not currently. She is squeezing a ball and sometimes it dangles. - Pain R shoulder pain Pain Intensity (Out of 10): 0 - Objective R handed: R shoulder PROM: Flex 100 degrees and ER 20 degrees (pt is painfully guarded). Pt was not wearing her abd sling correctly so demonstrated proper ramirez. Able to do Bicep AROM and wrist pronation and supination ROM. Demonstrated pendulums R arm... - Balance/Special Test Scores Quick DASH Score: 70.4525 - Goals Goal 1:: I HEP Goal Time Frame: 6-8 Weeks Goal 2:: Increase R shoulder AROM to 120 degrees elevation with no pain Goal Time Frame: 6-8 Weeks Goal 3:: Be able to return to full use of her R arm with ADLs with no pain Goal Time Frame: 6-8 Weeks - Rehabilitation Potential Rehabilitation Potential: Good - Anticipated Interventions Patient/Client Instruction: Educate patient on: Condition, Plan of Care For the Purpose of:: To decrease pain, To decrease swelling/inflammation, To increase ROM, To improve nutrient delivery to tissue, To improve muscle performance and motor function, To improve ability to perform ADL's, To increase tolerance to activity/condition/position, To improve performance and independence with ADL's, To decrease level of supervision to perform tasks, To improve ability of physical actions for home/community/work/leisure, To improve health of tissue, To increase flexibility/ROM Therapeutic Exercise to Include: Strength training, Postural training, Flexibilty training, Neuromotor development, Passive ROM, Active ROM, Scapular Strength/Stabilization For the Purpose of:: To decrease pain, To increase ROM, To improve nutrient delivery to tissue, To improve muscle performance and motor function, To improve ability to perform ADL's, To increase tolerance to activity/condition/position, To improve health of tissue, To decrease soft tissue restriction, To increase flexibility/ROM Manual Therapy Techniques to Include: Passive ROM For the Purpose of:: To decrease pain, To decrease swelling/inflammation, To increase ROM, To improve nutrient delivery to tissue Cryotherapy (ice pack, ice massage): Yes Thermo therapy (hot pack): Yes For the Purpose of:: To decrease pain, To decrease swelling/inflammation, To increase ROM, To improve nutrient delivery to tissue Thank you for the opportunity to evaluate your patient. For Medicare and Medicare HMO plans, please review the plan of care and approve it. It will need to be FAXED BACK to us at [phone] for Medicare purposes. For Medicare only, by signing this I certify the plan of care. Please let me know if there are questions or concerns regarding this plan of care. Physician Signature: Date:
--- NOTE | 2022-09-09 15:23 | HP.PTEVAL ---
Patient's Visit Information JOANNA PRITCHARD is a 81 year old F referred to Physical Therapy by EMIGDIO Ronquillo with a diagnosis of S/P R TSA (08-22-22). Date of Evaluation: 09/09/22 Physical Therapist: WARD Quinones - Visit Plan Frequency: 2-3x /Week Duration: 2 Months Plan: Protocol in folder. Phase I and gradual begin phase II as directed by patient (weeks 2-6) Phase I (PROM no limits) Phase II (AROM no limits) and Phase III (start at week 6 which is 10-03-2022) strengthening no limits. 2-3X/ week for 12 weeks for R shoulder PROM, AAROM, AROM, scapular and RC strength. See Protocol in folder. May use heat and ice as needed. - Subjective She had R TSA on 08-22-22. Dr Corcoran did the surgery. She is in a sling (abd pillow). Needs to be in the sling till 09-20-22. She is R handed. She is sleeping ok in a lounge chair. She has no N&T. 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 She does not live a alone. She goes down steps to get to the TV room. She still drives but not currently. She is squeezing a ball and sometimes it dangles. - Pain R shoulder pain Pain Intensity (Out of 10): 0 - Objective R handed: R shoulder PROM: Flex 100 degrees and ER 20 degrees (pt is painfully guarded). Pt was not wearing her abd sling correctly so demonstrated proper ramirez. Able to do Bicep AROM and wrist pronation and supination ROM. Demonstrated pendulums R arm... - Balance/Special Test Scores Quick DASH Score: 70.4525 - Goals Goal 1:: I HEP Goal Time Frame: 6-8 Weeks Goal 2:: Increase R shoulder AROM to 120 degrees elevation with no pain Goal Time Frame: 6-8 Weeks Goal 3:: Be able to return to full use of her R arm with ADLs with no pain Goal Time Frame: 6-8 Weeks - Rehabilitation Potential Rehabilitation Potential: Good - Anticipated Interventions Patient/Client Instruction: Educate patient on: Condition, Plan of Care For the Purpose of:: To decrease pain, To decrease swelling/inflammation, To increase ROM, To improve nutrient delivery to tissue, To improve muscle performance and motor function, To improve ability to perform ADL's, To increase tolerance to activity/condition/position, To improve performance and independence with ADL's, To decrease level of supervision to perform tasks, To improve ability of physical actions for home/community/work/leisure, To improve health of tissue, To increase flexibility/ROM Therapeutic Exercise to Include: Strength training, Postural training, Flexibilty training, Neuromotor development, Passive ROM, Active ROM, Scapular Strength/Stabilization For the Purpose of:: To decrease pain, To increase ROM, To improve nutrient delivery to tissue, To improve muscle performance and motor function, To improve ability to perform ADL's, To increase tolerance to activity/condition/position, To improve health of tissue, To decrease soft tissue restriction, To increase flexibility/ROM Manual Therapy Techniques to Include: Passive ROM For the Purpose of:: To decrease pain, To decrease swelling/inflammation, To increase ROM, To improve nutrient delivery to tissue Cryotherapy (ice pack, ice massage): Yes Thermo therapy (hot pack): Yes For the Purpose of:: To decrease pain, To decrease swelling/inflammation, To increase ROM, To improve nutrient delivery to tissue Thank you for the opportunity to evaluate your patient. For Medicare and Medicare HMO plans, please review the plan of care and approve it. It will need to be FAXED BACK to us at [phone] for Medicare purposes. For Medicare only, by signing this I certify the plan of care. Please let me know if there are questions or concerns regarding this plan of care. Physician Signature: Date:
--- NOTE | 2022-11-08 12:27 | HP.PTREVAL_ITS ---
EMIGDIO Ronquillo, It has been my pleasure to treat JOANNA PRITCHARD over the last 16 visits for S/P R TSA (08-22-22). Please see the progress note below for an update on the physical therapy plan of care! Subjective: Patient reports that she feels the shoulder is better but does not feel that she is there yet. She saw the MD on Friday- she told him about the sharp pain and he was not concerned and he took x-rays and wanted her to keep up with therapy. Going back to see him in December. Pain is in the anterior shoulder- movement dependent. Worst: 05/29. Today pain sitting is a 0/10 Objective/Function: R handed: R shoulder PROM: Flex 150 degrees Abd: 150 IR: to belly and ER 30 degrees- stopped at end feel did not push into pain/ resistance. AROM: Flexion: 50 degrees with scapular compensation, Abd: 30 degrees with scapular and trunk compensation: IR: to greater troch, ER: 30 degrees Isometric at neutral: 4/5 throughout. Palpation: tender along anterior shoulder Plan Plan: 11/08/22: Continue to progress throughout protocol 2-3x a week for an additional 4 weeks. Protocol in folder. Phase I and gradual begin phase II as directed by patient (weeks 2-6) Phase I (PROM no limits) Phase II (AROM no limits) and Phase III (start at week 6 which is 10-03-2022) strengthening no limits. 2-3X/ week for 12 weeks for R shoulder PROM, AAROM, AROM, scapular and RC strength. See Protocol in folder. May use heat and ice as needed. Balance/Gait/Functional tests - Balance/Special Test Scores Quick DASH Score: 54.5450 Goals Goal 1:: I HEP Goal Time Frame: 6-8 Weeks Goal 2:: Increase R shoulder AROM to 120 degrees elevation with no pain Goal Time Frame: 6-8 Weeks Goal 3:: Be able to return to full use of her R arm with ADLs with no pain Goal Time Frame: 6-8 Weeks Anticipated Interventions Patient/Client Instruction: Educate patient on: Condition, Plan of Care For the Purpose of:: To decrease pain, To decrease swelling/inflammation, To increase ROM, To improve nutrient delivery to tissue, To improve muscle performance and motor function, To improve ability to perform ADL's, To increase tolerance to activity/condition/position, To improve performance and independence with ADL's, To decrease level of supervision to perform tasks, To improve ability of physical actions for home/community/work/leisure, To improve health of tissue, To increase flexibility/ROM Therapeutic Exercise to Include: Strength training, Postural training, Flexibilty training, Neuromotor development, Passive ROM, Active ROM, Scapular Strength/Stabilization For the Purpose of:: To decrease pain, To increase ROM, To improve nutrient delivery to tissue, To improve muscle performance and motor function, To improve ability to perform ADL's, To increase tolerance to activity/condition/position, To improve health of tissue, To decrease soft tissue restriction, To increase flexibility/ROM Manual Therapy Techniques to Include: Passive ROM For the Purpose of:: To decrease pain, To decrease swelling/inflammation, To increase ROM, To improve nutrient delivery to tissue Cryotherapy (ice pack, ice massage): Yes Thermo therapy (hot pack): Yes For the Purpose of:: To decrease pain, To decrease swelling/inflammation, To increase ROM, To improve nutrient delivery to tissue Please do not hesitate to contact me at [phone] by phone or if you have questions or concerns regarding this new plan of care! Sincerely, Ashli Gilliam DPT
== END 2023-01-16 19:00 | disposition home or self-care (01) ==
LOC: PT 12:00
PROVIDERS: PCP Family Medicine; Referring Provider Physician Assistant Surgical; Visit Provider Physician Assistant Surgical
DX: M19.011 Primary osteoarthritis, right shoulder (principal); S46.011A Strain of muscle(s) and tendon(s) of the rotator cuff of right shoulder, initial encounter; Z96.611 Presence of right artificial shoulder joint
CPT/HCPCS: 97110; 97140; 97161; 97164

== ENCOUNTER 2023-03-30 22:26 | Observation (INO) | payer MEDICARE, OTHER, SELFPAY ==
[2023-03-30 22:32] VITALS: BP 184/97; PULSE 68; RESP 20; TEMP 36.1; O2SAT 100; BMI 27.3
--- NOTE | 2023-03-30 23:05 | CT_ITS ---
EXAM: CT ABDOMEN AND PELVIS WITH INTRAVENOUS CONTRAST CLINICAL INDICATION: abd pain / ? SBO TECHNIQUE: Helically acquired images were obtained of the abdomen and pelvis with intravenous contrast. CTDIvol = ( 17.26 ) mGy, DLP = ( 891.30 ) mGycm This CT exam was performed using one or more of the following dose reduction techniques: automated exposure control, adjustment of the mA and/or kV according to patient size, and/or use of iterative reconstruction technique. CONTRAST: IV 100mL [id number] COMPARISON: No relevant prior studies available. FINDINGS: LOWER THORAX: See below. ABDOMEN: LIVER: See below. GALLBLADDER AND BILE DUCTS: Biliary ectasia status post cholecystectomy. No intra- or extrahepatic biliary ductal dilation. PANCREAS: Unremarkable. No focal cystic or solid mass. SPLEEN: Unremarkable. Normal size without focal cystic or solid mass. ADRENALS: Unremarkable. No nodules. KIDNEYS AND URETERS: Small renal cysts. No obstructive uropathy. 2 renal cysts are identified, the larger one measures 6.7 cm at the inferior aspect of the right lobe of the liver. Normal renal size and position. STOMACH AND BOWEL: Fluid-filled dilated lower abdominal small bowel loops with fluid in the mesentery and fluid in the pelvis. No pneumatosis or portal venous gas. Right inguinal hernia containing incarcerated loop of distal small bowel with small amount of free fluid within the hernia sac. Cannot exclude strangulation although no bowel wall thickening associated. PELVIS: APPENDIX: No evidence of acute appendicitis. BLADDER: Unremarkable. REPRODUCTIVE: Unremarkable as visualized. No mass. ABDOMEN and PELVIS: INTRAPERITONEAL SPACE: Small free fluid in the pelvis. BONES/JOINTS: Grade 1 degenerative anterolisthesis of L4 on L5. No suspicious lytic or blastic abnormality. SOFT TISSUES: Status post ventral abdominal wall hernia repair. VASCULATURE: Multivessel calcific coronary atherosclerosis. Subsegmental atelectasis at the posterior lower lobes. Prominent atherosclerotic calcifications of the aortoiliac and iliac arteries with at least moderate luminal narrowing at the celiac axis, superior mesenteric artery origin and both renal artery origins. LYMPH NODES: Unremarkable. No enlarged lymph nodes. CT/Abdomen/Pelvis W IV Cont ONLY IMPRESSION: Moderate grade small bowel obstruction caused by an incarcerated small bowel containing right inguinal hernia with possible strangulation. N.B. : Feliciano Justice MD, confirmed on 03/31/2023 01:56:00 (ET) that the healthcare facility has received the radiology report. Electronically Signed: Feliciano Michel MD at 1:52 EDT ,
[2023-03-30] MEDS: Ondansetron 4 MG/2 ML Vial IV (23:15)
[2023-03-30] MEDS: Morphine 4 MG/ML Syringe IV (23:15)
[2023-03-30] MEDS: 0.9% Normal Saline 1,000 ML 999 ML IV (23:19)
[2023-03-30 23:42] LABS: Absolute Neutrophil Count 5.1 X10^3/uL (2.0-7.7); Basophil# 0.04 X10^3/uL; Basophil% 0.5 % (0-1); Eosinophil# 0.24 X10^3/uL; Eosinophils% 2.8 % (0-5); Hematocrit 38.4 % (37-47); Hemoglobin 12.5 g/dL (12.0-15.0); Lymphocyte % 28.3 % (19-41); Mean Corp Hgb Conc 32.6 g/dL (32-36); Mean Corpuscular Hgb 30.3 pg (27.0-32.0); Mean Platelet Vol. 10.4 fl (6.2-12.0); Monocyte# 0.69 X10^3/uL; Monocyte% 8.1 % (0-10); NRBC Flagged by Analyzer 0 % (0-5); Neutrophil # 5.09 X10^3/uL (2.7-7.7); Neutrophil % 59.9 % (47-70); Platelet Count 247 K/mm3 (150-450); RBC Distribution Width CV 14.6 % (11.6-14.6); RBC Distribution Width SD 49.1 fl (35.1-43.9); Red Blood Count 4.13 M/mm3 (4.2-5.4); White Blood Count 8.5 K/mm3 (4.4-11.0)
[2023-03-31 00:01] LABS: AST(SGOT) 17 U/L (15-37); Alanine Aminotransfer ALT/SGPT 18 U/L (13-56); Albumin, Serum 3.8 g/dL (3.2-5.0); Alkaline Phosphatase 60 U/L (45-117); Anion Gap 10 (5-15); BUN 27 mg/dL (7-18); BUN/Creat Ratio 22.1 RATIO (10-20); Bilirubin, Direct 0.36 mg/dL (0.00-0.30); Calcium,Total 9.8 mg/dL (8.5-10.1); Chloride 107 mmol/L (98-107); Creatinine, Serum 1.22 mg/dL (0.55-1.02); EST Glomerular Filtration Rate 45 mL/min (>60); Est Glom Filt Rate - Afr Amer 55 mL/min (>60); Estimated Creatinine Clearance 35.77 ml/min; Globulin 3.4 g/dL (2.2-4.2); Glucose 144 mg/dL (74-106); Lipase 43 U/L (13-75); Potassium 3.9 mmol/L (3.5-5.1); Protein, Total 7.2 g/dL (6.4-8.2); Sodium Level 141 mmol/L (136-145)
[2023-03-31 00:16] LABS: Lactic Acid 1.5 mmol/L (0.4-1.9)
[2023-03-31 02:21] VITALS: BP 164/67; RESP 15; O2SAT 98
[2023-03-31 02:25] LABS: Bacteria 0 SEEN /hpf (None Seen); Mucous, Urine 0 SEEN /hpf (<or=2+); Red Blood Cells-Urine 0 SEEN /hpf (0-5); Squamous Epithelial Cells - UA 0 SEEN /hpf (5-10); White Blood Cells 0 SEEN /hpf (0-5)
[2023-03-31 02:27] LABS: Color, Urine Yellow (Yellow); Glucose, Dipstick Normal (Normal); Ketone-Dipstick Negative (Negative); Leukocyte Esterase-Dipstick Negative /ul (Negative); Nitrite-Dipstick Negative (Negative); Occult Blood-Urine Negative /ul (Negative); Protein-Dipstick 15 mg/dl (Negative); Urine Bilirubin Dipstick Negative (Negative); Urine Clarity Clear (Clear); Urine Urobilinogen Normal (Normal)
--- NOTE | 2023-03-31 02:35 | CT_ITS ---
EXAM: CT Abdomen And Pelvis W/O Contrast Injection HISTORY: small bowel obstruction -- PO contrast only TECHNIQUE: Routine protocol CT abdomen and pelvis. IV Contrast: None.. Oral contrast: With. RADIATION DOSAGE (If Supplied By Facility): CTDIvol = ( 8.87 ) mGy, DLP = ( 713.68 ) mGycm Individualized dose optimization techniques were used for this CT. COMPARISON: CT abdomen and pelvis 03/31/2023. LIMITATIONS: None. FINDINGS: LOWER CHEST: Atelectasis in the lung bases increased compared to prior. Coronary artery calcifications LIVER: Low-attenuation structures unchanged. GALLBLADDER AND BILIARY TREE: Gallbladder not visualized presumed surgically absent. Prominent common bile duct likely postsurgical. PANCREAS: Grossly unremarkable. SPLEEN: Grossly unremarkable. ADRENAL GLANDS: Grossly unremarkable. KIDNEYS AND URETERS: Contrast in the renal collecting system from prior CT. No hydronephrosis. PERITONEUM: No free air. Small amount of free fluid in the lower abdomen and pelvis. BOWEL: Oral contrast in the stomach, 3 segments of small bowel, to the transverse colon. No bowel obstruction. Decreased bowel dilatation compared to prior. There is edema in the mesentery adjacent to the small bowel in the lower abdomen. Right inguinal hernia contains fluid, no bowel, reduced compared to prior. Diverticula scattered throughout the colon. APPENDIX: Visualized and unremarkable. No evidence of acute appendicitis. VESSELS: Abdominal aorta is normal caliber. REPRODUCTIVE ORGANS: Grossly unremarkable URINARY BLADDER: Minimally distended with contrast from prior CT. ABDOMINAL WALL: Unremarkable. BONES: Degenerative changes lumbar spine with minimal anterolisthesis at L4-5. CT/Abdomen/Pel W ORAL Cont Only IMPRESSION: No bowel obstruction. Edema in the mesentery adjacent to the small bowel in the lower abdomen as on prior. This may be related to earlier obstruction, enteritis, cannot exclude ischemia. Right inguinal hernia containing fluid, no bowel, reduced compared to prior. Small amount of free fluid. Electronically Signed: Radha Rose MD at 7:16 EDT ,
--- NOTE | 2023-03-31 02:39 | PCM.HP.STD ---
HPI - General HPI Narrative JOANNA PRITCHARD, is a 82 F who presents with abdominal pain. Patient reports she had abdominal pain starting this evening. She says that it is in the upper abdomen. She says the pain is now resolved. She says this happens once a year that she comes into the emergency room with a bowel obstruction that resolves and has been going on for few years. She says she also has pain every 5 to 6 months that she manages at home and that resolves. She says she has not had a bowel movement in 4 days. She says that her abdomen is now much softer than it was earlier this evening. She denies any nausea or vomiting currently but she did have vomiting earlier this evening. The patient reports she has had a ventral hernia repair as well as a right inguinal open repair. PENDING SALE TO [facility] Medical History (Updated 03/31/23 @ 02:[address] Lalit Strauss MD) Back pain Cardiology follow-up encounter Chest pain Easy bruising Essential hypertension Former smoker Gastric reflux GERD (gastroesophageal reflux disease) Gout History of benign breast biopsy History of echocardiogram History of edema History of steroid therapy History of stress test History of ulceration Hypertension Leg cramps Lumbar spinal stenosis Mixed hyperlipidemia Opioid dependence Palpitations Post-menopausal Small bowel obstruction Wears glasses Wears partial dentures Home Medications aspirin 81 mg tablet,delayed release (Adult Low Dose Aspirin) 81 mg PO DAILY 10/07/19 [History Last Taken 11/09/19] cdaajnde-xfh-eajz-FA-Ca carb-vit K 18 mg iron-400 mcg-500 mg tablet (Women's Multivitamin) 1 tab PO DAILY 05/01/21 [History Last Taken Unknown] omeprazole 40 mg capsule,delayed release 40 mg PO DAILY 05/01/21 [History Last Taken Unknown] potassium chloride 20 mEq tablet,extended release(part/cryst) 20 meq PO DAILY #10 tabs 07/05/21 [Rx Last Taken Unknown] allopurinol 100 mg tablet 100 mg PO DAILY 08/05/22 [History Last Taken Unknown] oxycodone-acetaminophen 5 mg-325 mg tablet (Percocet) 1 tab PO Q6H PRN Pain 08/05/22 [History Last Taken Unknown] valsartan 320 mg-hydrochlorothiazide 25 mg tablet 1 tab PO DAILY 08/05/22 [History Last Taken Unknown] Allergy/AdvReac Type Severity Reaction Status Date / Time No Known Allergies Allergy Verified 03/30/23 22:30 Family History Sister Breast cancer Surgical History H/O oophorectomy H/O total hysterectomy History of cardiac catheterization History of esophagogastroduodenoscopy (EGD) Hx of cholecystectomy Hx of colonoscopy Hx of hernia repair Social History Smoking Status: Former smoker Tobacco: How many years used: 45 second hand exposure: No alcohol intake: current alcohol intake frequency: a few times a month substance use type: does not use caffeine: Yes Type: coffee Number of servings: 1 seatbelt use: always do you feel safe at home: Yes ROS Constitutional Constitutional: Reports anorexia; Denies chills or fatigue Eyes Eyes: Denies blurry vision ENT HEENT: Denies abnormal hearing Cardiovascular Cardiovascular: Denies chest pain Respiratory/Chest Respiratory/Chest: Denies cough or dyspnea Gastrointestinal Gastrointestinal: Reports abdominal pain, constipation, nausea and vomiting; Denies coffee ground emesis or diarrhea Genitourinary Genitourinary: Denies change in urinary stream Musculoskeletal Musculoskeletal: Denies abnormal gait Integumentary Integumentary: Denies jaundice or new lesions Neurologic Neurologic: Denies abnormal gait Psychiatric Psychiatric: Denies anxiety Vital Signs Vital Signs Vital Signs: 03/30/23 22:32 03/31/23 02:21 Temperature 97 F L Temperature Source Temporal Pulse Rate 68 Respiratory Rate 20 H 15 Blood Pressure 184/97 H 164/67 H Blood Pressure Mean 126 99 Pulse Ox 100 98 Oxygen Delivery Method Room Air Nasal Cannula Oxygen Flow Rate (L/min) 2 Weight Weight: 175 lb 0.752 oz Body Mass Index (BMI) 27.3 Physical Exam Const oriented x3 and no apparent distress Resp normal respiratory effort Cardio regular rate and regular rhythm GI soft to palpation and non-tender Inspection: Negative for abdominal distention Extremity normal to inspection Results Lab / Micro Data Result Diagrams: 03/30/23 23:25 03/30/23 23:25 Labs: Laboratory Results - last 24 hr 03/30/23 23:25: WBC 8.5, RBC 4.13 L, Hgb 12.5, Hct 38.4, MCV 93.0, MCH 30.3, MCHC 32.6, RDW Std Deviation 49.1 H, RDW Coeff of Hossein 14.6, Plt Count 247, MPV 10.4, Immature Gran % (Auto) 0.400, Neut % (Auto) 59.9, Lymph % (Auto) 28.3, [place] % (Auto) 8.1, Eos % (Auto) 2.8, Baso % (Auto) 0.5, Absolute Neuts (auto) 5.1, Absolute Lymphs (auto) 2.40, Nucleated RBC % 0 03/30/23 23:25: Sodium 141, Potassium 3.9, Chloride 107, Carbon Dioxide 24.0, Anion Gap 10, BUN 27 H, Creatinine 1.22 H, Estim Creat Clear Calc 35.77, Est GFR (MDRD) Af Amer 55 L, Est GFR (MDRD) Non-Af 45 L, BUN/Creatinine Ratio 22.1 H, Glucose 144 H, Calcium 9.8, Total Bilirubin 1.10 H, Direct Bilirubin 0.36 H, AST 17, ALT 18, Alkaline Phosphatase 60, Total Protein 7.2, Albumin 3.8, Globulin 3.4, Lipase 43 03/30/23 23:25: Lactic Acid 1.5 03/31/23 02:20: Urine Color Yellow, Urine Clarity Clear, Urine pH 7.0, Ur Specific [place] 1.010, Urine Protein 15 H, Urine Glucose (UA) Normal, Urine Ketones Negative, Urine Occult Blood Negative, Urine Nitrite Negative, Urine Bilirubin Negative, Urine Urobilinogen Normal, Ur Leukocyte Esterase Negative, Urine RBC 0 SEEN, Urine WBC 0 SEEN, Ur Squamous Epith Cells 0 SEEN, Urine Bacteria 0 SEEN, Urine Mucus 0 SEEN Radiology Impression Abdomen/Pelvis CT 03/30/23 23:05 IMPRESSION: Moderate grade small bowel obstruction caused by an incarcerated small bowel containing right inguinal hernia with possible strangulation. Electronically Signed: Feliciano Michel MD at 1:52 EDT , ADDENDUM: 03/31/23 0202 IMPRESSION: Moderate grade small bowel obstruction caused by an incarcerated small bowel containing right inguinal hernia with possible strangulation. N.B. : Feliciano Justice MD, confirmed on 03/31/2023 01:56:00 (ET) that the healthcare facility has received the radiology report. Electronically Signed: Feliciano Michel MD at 1:52 EDT , Assessment & Plan Assessment/Plan (1) Small bowel obstruction: PLAN: Patient presented to the emergency room with epigastric pain. CT scan revealed small bowel obstruction. I do not feel like this is a hernia related bowel obstruction. When I feel her right inguinal region I do not feel any bowel or incarceration and there is no pain. Her abdomen is soft and she is not having any more pain or nausea or vomiting. She says that she gets these instructions commonly. I looked at her old CT scans and her current CT scan appears very similar to her last CT scan in 2020 and she had a CT scan in 2014 for a very similar bowel obstruction. These were all deemed to be due to adhesions to her anterior ventral mesh. Patient has had a large laparoscopic ventral hernia repair and a left inguinal hernia repair at the same time. The right inguinal hernia has been there for at least a few years and always contains a loop of small bowel and is nonobstructive. Her white count is normal and her pain is resolved. I will admit the patient for observation and order CT scan with oral contrast to ensure that there is no ongoing obstruction and the patient may need elective right inguinal hernia repair but a lysis of adhesions would be extremely difficult. Lalit Strauss MD Pager: [facility] [address] [place] [address], [address] [place] [address] Office:
--- NOTE | 2023-03-31 02:42 | EX.ED.DYSGE1 ---
HPI History of Present Illness Chief Complaint: Nausea/Vomiting Narrative Narrative: Patient is 82-year-old female with past medical history of hypertension hyperlipidemia and GERD. She states she was feeling normal and then around 8 PM this evening developed sudden onset abdominal pain with bouts of nausea and vomiting. She states that the symptoms came on suddenly and are not resolving/improving with time and secondary to this brought in for evaluation. She denies any known sick contact. [facility] Medical History (Updated 04/03/23 @ 07:[address] Feliciano Justice, ) Back pain Cardiology follow-up encounter Chest pain Easy bruising Essential hypertension Former smoker Gastric reflux GERD (gastroesophageal reflux disease) Gout History of benign breast biopsy History of echocardiogram History of edema History of steroid therapy History of stress test History of ulceration Hypertension Leg cramps Lumbar spinal stenosis Mixed hyperlipidemia Opioid dependence Palpitations Post-menopausal Small bowel obstruction Wears glasses Wears partial dentures Home Medications xooxpvuu-yfg-qbuz-FA-Ca carb-vit K 18 mg iron-400 mcg-500 mg tablet (Women's Multivitamin) 1 tab PO DAILY supplement 05/01/21 [History Last Taken Unknown] omeprazole 40 mg capsule,delayed release 40 mg PO DAILY GERD 05/01/21 [History Last Taken Unknown] allopurinol 100 mg tablet 100 mg PO DAILY gout 08/05/22 [History Last Taken Unknown] valsartan 320 mg-hydrochlorothiazide 25 mg tablet 1 tab PO DAILY blood pressure 08/05/22 [History Last Taken Unknown] oxycodone 5 mg tablet 5 mg PO BID pain 03/31/23 [History Last Taken Unknown] potassium chloride 20 mEq tablet,extended release(part/cryst) 20 meq PO DAILY potassium replacement 03/31/23 [History Last Taken Unknown] Allergy/AdvReac Type Severity Reaction Status Date / Time No Known Allergies Allergy Verified 03/30/23 22:30 Family History Sister Breast cancer Surgical History H/O oophorectomy H/O total hysterectomy History of cardiac catheterization History of esophagogastroduodenoscopy (EGD) Hx of cholecystectomy Hx of colonoscopy Hx of hernia repair Social History Smoking Status: Former smoker Tobacco: How many years used: 45 second hand exposure: No alcohol intake: current alcohol intake frequency: a few times a month substance use type: does not use caffeine: Yes Type: coffee Number of servings: 1 seatbelt use: always do you feel safe at home: Yes ROS ROS ED Constitutional Constitutional ED: Denies chills or fever(s) ENT ENT ED: Denies sore throat Cardiovascular Cardiovascular: Denies chest pain Respiratory/Chest Respiratory/Chest: Denies cough or dyspnea Gastrointestinal Gastrointestinal: Reports abdominal pain, nausea and vomiting; Denies diarrhea Genitourinary Genitourinary ED: Denies dysuria or hematuria Musculoskeletal Musculoskeletal: Denies back pain or myalgias Integumentary Denies rash Neurologic Neurologic: Denies headache(s) Hematologic/Lymphatic Hematologic/Lymphatic: Denies easy bleeding or easy bruising EXAM Physical Exam Const Vital Signs: 03/30/23 22:32 03/31/23 02:21 Temperature 97 F L Temperature Source Temporal Pulse Rate 68 Respiratory Rate 20 H 15 Blood Pressure 184/97 H 164/67 H Blood Pressure Mean 126 99 Pulse Ox 100 98 Oxygen Delivery Method Room Air Nasal Cannula Oxygen Flow Rate (L/min) 2 Positive well nourished, well developed and obese General Appearance ED: well developed Nutritional Appearance: obese HEENT Reports moist mucous membranes HEENT Narrative: No airway edema or compromise no signs of secondary infection in the posterior pharynx Eyes PERRL and EOMs intact bilaterally General Eye ED: Negative for scleral icterus Neck supple Resp normal respiratory effort and clear to auscultation bilaterally Cardio regular rate and regular rhythm Rate: other Other Details: Radial pulses are plus 2 out of 4 bilaterally are equal and symmetric GI GI Narrative: Abdomen is slightly distended with hypoactive bowel sounds. There is mild pain with palpation along the right upper and mid epigastric region with increased tympany at the site. No voluntary guarding or rigidity. no pulsatile mass or fluid wave Auscultation: hypoactive bowel sounds Palpation: soft Back/Spine no CVA tenderness Extremity normal to inspection Neuro oriented x3, CN's II-XII intact bilaterally and no sensory deficits noted Sensorium / Orientation: alert Motor Exam: strength 5/5 throughout Psych mental status grossly normal Skin no rashes or lesions noted General Skin Exam: Negative for jaundice MDM MDM MDM Narrative Medical decision making narrative: Patient presented to the ER hypertensive otherwise with stable vitals. She reported sudden onset of abdominal pain with bouts of nausea and vomiting and no sick contact. She also states she has had remote abdominal surgeries in the past but denies any history of obstruction. However with the sudden onset of symptoms differential diagnosis is ileus versus small bowel obstruction versus gastroenteritis versus diverticulitis. Patient blood work was obtained which reveals no clinically significant findings but CT scan showed changes concerning for an internal inguinal hernia leading to incarceration and obstruction. Secondary to his general surgery was contacted and they evaluated the patient and they agree to accept her for admission at this time to further evaluate potential obstructive process. As she is not having bouts of vomiting at this moment they would do not recommend NG tube placement History & Record Review Discussion w/independent historian: Patient and Family Lab Data Attestation: I reviewed the patient's lab results. Labs: Laboratory Results - last 24 hr 03/30/23 03/30/23 03/30/23 23:25 23:25 23:25 WBC 8.5 RBC 4.13 L Hgb 12.5 Hct 38.4 MCV 93.0 MCH 30.3 MCHC 32.6 RDW Std Deviation 49.1 H RDW Coeff of Hossein 14.6 Plt Count 247 MPV 10.4 Immature Gran % (Auto) 0.400 Neut % (Auto) 59.9 Lymph % (Auto) 28.3 [place] % (Auto) 8.1 Eos % (Auto) 2.8 Baso % (Auto) 0.5 Absolute Neuts (auto) 5.1 Absolute Lymphs (auto) 2.40 Nucleated RBC % 0 Sodium 141 Potassium 3.9 Chloride 107 Carbon Dioxide 24.0 Anion Gap 10 BUN 27 H Creatinine 1.22 H Estim Creat Clear Calc 35.77 Est GFR (MDRD) Af Amer 55 L Est GFR (MDRD) Non-Af 45 L BUN/Creatinine Ratio 22.1 H Glucose 144 H Lactic Acid 1.5 Calcium 9.8 Total Bilirubin 1.10 H Direct Bilirubin 0.36 H AST 17 ALT 18 Alkaline Phosphatase 60 Total Protein 7.2 Albumin 3.8 Globulin 3.4 Lipase 43 Urine Color Urine Clarity Urine pH Ur Specific [place] Urine Protein Urine Glucose (UA) Urine Ketones Urine Occult Blood Urine Nitrite Urine Bilirubin Urine Urobilinogen Ur Leukocyte Esterase Urine RBC Urine WBC Ur Squamous Epith Cells Urine Bacteria Urine Mucus 03/31/23 02:20 WBC RBC Hgb Hct MCV MCH MCHC RDW Std Deviation RDW Coeff of Hossein Plt Count MPV Immature Gran % (Auto) Neut % (Auto) Lymph % (Auto) [place] % (Auto) Eos % (Auto) Baso % (Auto) Absolute Neuts (auto) Absolute Lymphs (auto) Nucleated RBC % Sodium Potassium Chloride Carbon Dioxide Anion Gap BUN Creatinine Estim Creat Clear Calc Est GFR (MDRD) Af Amer Est GFR (MDRD) Non-Af BUN/Creatinine Ratio Glucose Lactic Acid Calcium Total Bilirubin Direct Bilirubin AST ALT Alkaline Phosphatase Total Protein Albumin Globulin Lipase Urine Color Yellow Urine Clarity Clear Urine pH 7.0 Ur Specific [place] 1.010 Urine Protein 15 H Urine Glucose (UA) Normal Urine Ketones Negative Urine Occult Blood Negative Urine Nitrite Negative Urine Bilirubin Negative Urine Urobilinogen Normal Ur Leukocyte Esterase Negative Urine RBC 0 SEEN Urine WBC 0 SEEN Ur Squamous Epith Cells 0 SEEN Urine Bacteria 0 SEEN Urine Mucus 0 SEEN Radiography Diagnostic Testing: Clinical Impression(s) from Imaging Studies Abdomen/Pelvis CT 03/30/23 23:05 IMPRESSION: Moderate grade small bowel obstruction caused by an incarcerated small bowel containing right inguinal hernia with possible strangulation. N.B. : Feliciano Justice MD, confirmed on 03/31/2023 01:56:00 (ET) that the healthcare facility has received the radiology report. Electronically Signed: Feliciano Michel MD at 1:52 EDT , Management Discussion w/another healthcare provider: [employer] Discharge Plan Dx/Rx/DC Orders Clinical Impression: Abdominal pain, Small bowel obstruction, Incarcerated hernia, Essential hypertension Disposition Disposition: Acute Care Hospital [facility] Discharge Date/Time: 03/31/23 03:25
[2023-03-31] MEDS: 0.9% Normal Saline 1,000 ML 100 ML IV (02:55)
[2023-03-31 03:03] VITALS: BP 171/77; PULSE 66; RESP 15; TEMP 36.6; O2SAT 99
[2023-03-31 03:32] VITALS: BMI 25.7
[2023-03-31 03:42] VITALS: BP 176/66; PULSE 68; RESP 16; TEMP 36.4; O2SAT 100
[2023-03-31 05:58] LABS: Absolute Lymphocyte Count 1.25 X10^3/uL (0.83-4.51); Absolute Neutrophil Count 6.7 X10^3/uL (2.0-7.7); Basophil# 0.02 X10^3/uL; Basophil% 0.2 % (0-1); Eosinophils% 1.1 % (0-5); Hematocrit 37.2 % (37-47); Hemoglobin 11.7 g/dL (12.0-15.0); Lymphocyte # 1.25 X10^3/ul (0.83-4.51); Lymphocyte % 14.2 % (19-41); Mean Corp Hgb Conc 31.5 g/dL (32-36); Mean Corpuscular Hgb 29.8 pg (27.0-32.0); Mean Corpuscular Volume 94.7 fL (81-99); Mean Platelet Vol. 9.8 fl (6.2-12.0); Monocyte# 0.71 X10^3/uL; Monocyte% 8.1 % (0-10); NRBC Flagged by Analyzer 0 % (0-5); Neutrophil # 6.68 X10^3/uL (2.7-7.7); Neutrophil % 76.1 % (47-70); Platelet Count 219 K/mm3 (150-450); RBC Distribution Width CV 14.5 % (11.6-14.6); RBC Distribution Width SD 50.3 fl (35.1-43.9); Red Blood Count 3.93 M/mm3 (4.2-5.4); White Blood Count 8.8 K/mm3 (4.4-11.0)
[2023-03-31 06:28] LABS: Anion Gap 4 (5-15); BUN 22 mg/dL (7-18); BUN/Creat Ratio 22.1 RATIO (10-20); Calcium,Total 8.5 mg/dL (8.5-10.1); Chloride 110 mmol/L (98-107); EST Glomerular Filtration Rate 57 mL/min (>60); Est Glom Filt Rate - Afr Amer 69 mL/min (>60); Estimated Creatinine Clearance 43.63 ml/min; Glucose 110 mg/dL (74-106); Sodium Level 141 mmol/L (136-145)
--- NOTE | 2023-03-31 07:32 | PCM.PN.SRG ---
Subjective Subjective Patient reports no nausea or vomiting overnight. She denies any abdominal pain at this time. Objective Data Objective Data Vital Signs: Vital Signs Temp Pulse Resp BP Pulse Ox O2 Del Method O2 Flow Rate 97.6 F L 68 16 176/66 H 100 Room Air 2 03/31/23 03:42 03/31/23 03:42 03/31/23 03:42 03/31/23 03:42 03/31/23 03:42 03/31/23 03:42 03/31/23 03:03 Oxygen Flow Rate (L/min) 2 Oxygen Delivery Method Room Air Weight: 164 lb 10.965 oz Body Mass Index (BMI) 25.7 Intake & Output: Intake and Output for Last 24 Hours 03/29/23 03/30/23 03/31/23 23:59 23:59 23:59 Intake Total 2265 / 2265 Balance 2265 / 2265 Lab / Micro Data Result Diagrams: 03/31/23 05:08 03/31/23 05:08 Labs: Laboratory Results - last 24 hr 03/30/23 23:25: WBC 8.5, RBC 4.13 L, Hgb 12.5, Hct 38.4, MCV 93.0, MCH 30.3, MCHC 32.6, RDW Std Deviation 49.1 H, RDW Coeff of Hossein 14.6, Plt Count 247, MPV 10.4, Immature Gran % (Auto) 0.400, Neut % (Auto) 59.9, Lymph % (Auto) 28.3, [place] % (Auto) 8.1, Eos % (Auto) 2.8, Baso % (Auto) 0.5, Absolute Neuts (auto) 5.1, Absolute Lymphs (auto) 2.40, Nucleated RBC % 0 03/30/23 23:25: Sodium 141, Potassium 3.9, Chloride 107, Carbon Dioxide 24.0, Anion Gap 10, BUN 27 H, Creatinine 1.22 H, Estim Creat Clear Calc 35.77, Est GFR (MDRD) Af Amer 55 L, Est GFR (MDRD) Non-Af 45 L, BUN/Creatinine Ratio 22.1 H, Glucose 144 H, Calcium 9.8, Total Bilirubin 1.10 H, Direct Bilirubin 0.36 H, AST 17, ALT 18, Alkaline Phosphatase 60, Total Protein 7.2, Albumin 3.8, Globulin 3.4, Lipase 43 03/30/23 23:25: Lactic Acid 1.5 03/31/23 02:20: Urine Color Yellow, Urine Clarity Clear, Urine pH 7.0, Ur Specific [place] 1.010, Urine Protein 15 H, Urine Glucose (UA) Normal, Urine Ketones Negative, Urine Occult Blood Negative, Urine Nitrite Negative, Urine Bilirubin Negative, Urine Urobilinogen Normal, Ur Leukocyte Esterase Negative, Urine RBC 0 SEEN, Urine WBC 0 SEEN, Ur Squamous Epith Cells 0 SEEN, Urine Bacteria 0 SEEN, Urine Mucus 0 SEEN 03/31/23 05:08: WBC 8.8, RBC 3.93 L, Hgb 11.7 L, Hct 37.2, MCV 94.7, MCH 29.8, MCHC 31.5 L, RDW Std Deviation 50.3 H, RDW Coeff of Hossein 14.5, Plt Count 219, MPV 9.8, Immature Gran % (Auto) 0.300, Neut % (Auto) 76.1 H, Lymph % (Auto) 14.2 L, [place] % (Auto) 8.1, Eos % (Auto) 1.1, Baso % (Auto) 0.2, Absolute Neuts (auto) 6.7, Absolute Lymphs (auto) 1.25, Nucleated RBC % 0 03/31/23 05:08: Sodium 141, Potassium 4.0, Chloride 110 H, Carbon Dioxide 27.0, Anion Gap 4 L, BUN 22 H, Creatinine 1.00, Estim Creat Clear Calc 43.63, Est GFR (MDRD) Af Amer 69, Est GFR (MDRD) Non-Af 57 L, BUN/Creatinine Ratio 22.1 H, Glucose 110 H, Calcium 8.5 Radiography Diagnostic Testing: Radiology Impression Abdomen/Pelvis CT 03/30/23 23:05 IMPRESSION: Moderate grade small bowel obstruction caused by an incarcerated small bowel containing right inguinal hernia with possible strangulation. N.B. : Feliciano Justice MD, confirmed on 03/31/2023 01:56:00 (ET) that the healthcare facility has received the radiology report. Electronically Signed: Feliciano Michel MD at 1:52 EDT , Abdomen CT 03/31/23 02:35 IMPRESSION: No bowel obstruction. Edema in the mesentery adjacent to the small bowel in the lower abdomen as on prior. This may be related to earlier obstruction, enteritis, cannot exclude ischemia. Right inguinal hernia containing fluid, no bowel, reduced compared to prior. Small amount of free fluid. Electronically Signed: Radha Rose MD at 7:16 EDT , Physical Exam Const oriented x3 and no apparent distress Resp normal respiratory effort Cardio regular rate and regular rhythm GI normal to inspection, nondistended, normoactive bowel sounds Assessment & Plan Assessment/Plan (1) Small bowel obstruction: PLAN: I performed a CT scan today with oral contrast. The contrast catheter to the colon without any signs of obstruction. I would avoid surgery unless absolutely necessary due to the dense adhesions to the mesh. I will start the patient on clear liquids and advance as tolerated and hopefully discharge her today. Lalit Strauss MD Pager: [facility] [address] [place] [address], [address] [place] [address] Office:
[2023-03-31 08:24] VITALS: BP 119/64; PULSE 76; RESP 16; TEMP 36.8; O2SAT 93
--- NOTE | 2023-03-31 09:38 | DCINST_ITS ---
Discharge Instructions Diet Discharge Diet: Light diet - advance as tolerated Activity Discharge Activity: Return to Normal Activity Follow Up Care Please Follow Up With: Lalit Strauss MD When: 2 weeks. Please contact our office at [phone] for an appointment to discuss right inguinal hernia repair options. Test Results: Test results from this visit will be discussed in further detail at your follow- up appointment, if applicable. Discharge Plan Admission Admit Date/Time: 03/31/23 02:35 Primary Reason for Your Visit: small bowel obstruction Attending Provider: Lalit Strauss Primary Care Provider: Merly Lewis Discharge Orders/Prescriptions Prescriptions: Continued omeprazole 40 mg capsule,delayed release(DR/EC) 40 mg PO DAILY Women's Multivitamin 18 mg iron-400 mcg-500 mg tablet 1 tab PO DAILY allopurinol 100 mg Tablet 100 mg PO DAILY valsartan-hydrochlorothiazide 320-25 mg Tablet 1 tab PO DAILY potassium chloride 20 mEq tablet,ER particles/crystals 20 meq PO DAILY Held oxycodone 5 mg tablet 5 mg PO BID Hold Instructions: Resume on 04/14/23. Recommend taking as needed for pain Label Comments: TAKE 1 TABLET BY MOUTH TWICE DAILY NEEDED FOR 28 DAYS Referrals / Follow Up: Merly Lewis MD [Primary Care Provider] - Disposition Disposition (needs filled in before D/C Order can be placed): Home, Self Care
[2023-03-31] MEDS: Fleet Enema 1 ML RC (10:15)
[2023-03-31 14:00] VITALS: BP 134/52; PULSE 70; RESP 14; TEMP 36.8; O2SAT 95
[2023-03-31 14:21] VITALS: BP 134/72; PULSE 70; RESP 14; TEMP 36.8; O2SAT 95
--- NOTE | 2023-03-31 14:33 | PHA.DC.MR ---
Pharmacy Service has performed discharge medication reconciliation for this patient. The patient's discharge medication list was reviewed for discrepancies and discrepancies were resolved. Home Medications jgaunkbd-zaw-wwni-FA-Ca carb-vit K 18 mg iron-400 mcg-500 mg tablet (Women's Multivitamin) 1 tab PO DAILY supplement 05/01/21 omeprazole 40 mg capsule,delayed release 40 mg PO DAILY GERD 05/01/21 allopurinol 100 mg tablet 100 mg PO DAILY gout 08/05/22 valsartan 320 mg-hydrochlorothiazide 25 mg tablet 1 tab PO DAILY blood pressure 08/05/22 oxycodone 5 mg tablet 5 mg PO BID pain 03/31/23 potassium chloride 20 mEq tablet,extended release(part/cryst) 20 meq PO DAILY potassium replacement 03/31/23
--- NOTE | 2023-03-31 15:18 | CASEMGMT ---
Patient had order for discharge. RN CM in to discuss needs at discharge, patient denies needs at this time. Patient had no further questions or concerns at this time.
== END 2023-03-31 14:21 | disposition home or self-care (01) ==
LOC: ED 03-31 02:43 → PCU 03-31 02:52
PROVIDERS: Admitting Provider Surgery; Emergency Provider Emergency Medicine; PCP Family Medicine; Visit Provider Surgery
DX: K56.609 Unspecified intestinal obstruction, unspecified as to partial versus complete obstruction (principal); I10 Essential (primary) hypertension; E78.2 Mixed hyperlipidemia; K21.9 Gastro-esophageal reflux disease without esophagitis; M10.9 Gout, unspecified; Z87.891 Personal history of nicotine dependence; Z79.899 Other long term (current) drug therapy; Z79.82 Long term (current) use of aspirin
CPT/HCPCS: 36415; 74176; 74177; 80048; 80076; 81001; 83605; 83690; 85025; 96361; 96374; 96375; 99221; 99285; J7030; Q9967; A4216; G0378; J2405

== ENCOUNTER → 2023-04-24 | Outpatient (CLI) | payer MEDICARE, OTHER, SELFPAY ==
[2023-04-24 13:57] LABS: Amphetamine Urine VISTA NEGATIVE (<1000 ng/mL); Barbiturate Urine VISTA NEGATIVE (< 200 ng/mL); Benzodiazepine Urine VISTA NEGATIVE (< 200 ng/mL); Cocaine Urine VISTA NEGATIVE (< 300 ng/mL); Ecstacy Urine VISTA NEGATIVE (< 500 ng/mL); Methadone Urine VISTA NEGATIVE (< 300 ng/mL); PCP Urine VISTA NEGATIVE (< 25 ng/mL); THC Urine VISTA NEGATIVE (< 50 ng/mL); Vista UDS pH Range 5
== END | disposition home or self-care (01) ==
PROVIDERS: PCP Family Medicine; Referring Provider Anesthesiology Pain Medicine; Visit Provider Anesthesiology Pain Medicine
DX: F11.20 Opioid dependence, uncomplicated (principal)
CPT/HCPCS: 80307

== ENCOUNTER → 2023-12-23 | Outpatient (CLI) | payer MEDICARE, OTHER, SELFPAY ==
[2023-12-23 15:26] LABS: Absolute Lymphocyte Count 2.21 X10^3/uL (0.83-4.51); Basophil# 0.03 X10^3/uL; Basophil% 0.5 % (0-1); Eosinophil# 0.15 X10^3/uL; Eosinophils% 2.5 % (0-5); Hematocrit 35.6 % (37-47); Lymphocyte # 2.21 X10^3/ul (0.83-4.51); Lymphocyte % 37.2 % (19-41); Mean Corp Hgb Conc 30.9 g/dL (32-36); Mean Corpuscular Hgb 29.5 pg (27.0-32.0); Mean Corpuscular Volume 95.4 fL (81-99); Mean Platelet Vol. 10.1 fl (6.2-12.0); Monocyte# 0.53 X10^3/uL; Monocyte% 8.9 % (0-10); NRBC Flagged by Analyzer 0 % (0-5); Neutrophil # 3.01 X10^3/uL (2.7-7.7); Neutrophil % 50.7 % (47-70); Platelet Count 209 K/mm3 (150-450); RBC Distribution Width CV 14.9 % (11.6-14.6); RBC Distribution Width SD 52.1 fl (35.1-43.9); Red Blood Count 3.73 M/mm3 (4.2-5.4); White Blood Count 5.9 K/mm3 (4.4-11.0)
[2023-12-23 15:57] LABS: ALB/GLOB Ratio 1.2 RATIO (0.9-2.4); AST(SGOT) 18 U/L (15-37); Alanine Aminotransfer ALT/SGPT 17 U/L (13-56); Albumin, Serum 3.7 g/dL (3.2-5.0); Alkaline Phosphatase 57 U/L (45-117); Anion Gap 7 (5-15); BUN 25 mg/dL (7-18); BUN/Creat Ratio 22.7 RATIO (10-20); Calcium,Total 9.3 mg/dL (8.5-10.1); Chloride 108 mmol/L (98-107); EST Glomerular Filtration Rate 51 mL/min (>60); Est Glom Filt Rate - Afr Amer 61 mL/min (>60); Glucose 103 mg/dL (74-106); Potassium 4.5 mmol/L (3.5-5.1); Protein, Total 6.7 g/dL (6.4-8.2); Sodium Level 142 mmol/L (136-145); Uric Acid 3.6 mg/dL (2.6-6.0)
--- OUTSIDE RECORDS SUMMARY | 2023-12-23 16:20 | XMS RPT_ITS | CCD ---
Author Name Unknown Address [id number] [place] [address] Organization [facility] Results Test Name Value Interpretation Reference Range Facil ity Progress note 11-16-2021 Note Date & Type Note Facility 11-16-2021 Note HNO ID: [id number] Author: Charleen Oliveira APRN.HEAD SAMPLER Service: ? Author Type: Nurse Practitioner Type: Progress Notes Filed: 11/16/2021 6:23 PM Note Text: 80 year old female with PMH HTN, GERD and DDD presents for complaints of right shoulder injury. 2 hours [employer]UB[employer] FORMER she slipped and fell in [employer] parking lot. States struck her right shoulder. Unable to fully raise, and ?? Deformity when compared to left. Given concerns for dislocated shoulder and no xray available at time of presentation, patient will be referred to ED. [facility] Progress note 09-08-2021 Note Date & Type Note Facility 09-08-2021 Note HNO ID: [id number] Author: Danyelle Houston APRN.HEAD SAMPLER Service: ? Author Type: Nurse Practitioner Type: Progress Notes Filed: 09/08/2021 11:28 AM Note Text: Subjective HPI Bhumi Ventura is a 80 year old female who presents with soreness on the top of her left foot. This has been bothering her the last 2 days. She typically walks 2 miles a day but has been unable to do so today due to the pain. She denies injury to the foot. She did have surgery in same foot many years ago. She has used ice at home which has helped. She has not had any fever or chills. Denies calf pain. Review of Systems Constitutional: Negative for chills and fever. Musculoskeletal: Positive for joint pain. Negative for falls. See HPI Skin: Negative for itching and rash. BP 122/74 Pulse 74 Temp 36.4 ?C (97.6 ?F) Resp 16 Wt 78 kg (172 lb) SpO2 97% BMI 27.76 kg/m? PAST MEDICAL HISTORY Diagnosis Date - Adhesion of abdominal wall hx of recurrent partial bowel obstruction - DDD (degenerative disc disease), lumbar - Diaphragmatic hernia without mention of obstruction or gangrene Hiatal hernia - Essential hypertension, benign 1979 - GERD (gastroesophageal reflux disease) - Hypercholesteremia - Impaired fasting glucose 2013 - Lump or mass in breast 2002 biopsy benign - Serous cystadenoma of ovary S/P BSO PAST SURGICAL HISTORY Procedure Laterality Date - BONE MINERAL DENSITY 08/15/05 [facility] - COLONOSCOP W/ OR W/O [facility] SPEC 07/04/06 - COLONOSCOP W/ OR W/O [facility] SPEC 07/21/15 - ECHO STRESS 05/11/[address] [facility] [address] HUFF - EGD W/O [facility] SPECIMEN W/BX 07/04/06 Antral gastritis/ Hiatal hernia - EXPLORATORY OF ABDOMEN 08/05/07 - INSER NON-TUNNEL CVC >= 5 YR 03/24/07 - L'SCOPE REM ADNEX W/PART/TOT OOPH/SALP 02/02/2015 Single port laparoscopy with bilateral salpingo-oophorectomy and extensive lysis of adhesions. - LAP REPAIR INTIAL INGUINAL HERNIA 08/25/07 left - LAP, SURG ENTEROLYSIS 03/24/07 - PAST SURGICAL HISTORY OF 2001,2004 varicose veins repair - PAST SURGICAL HISTORY OF age 37 DEL, ovaries left in place - REMOVAL GALLBLADDER 1974 Cholecystectomy - REMOVAL GALLBLADDER Cholecystectomy - REPAIR INCIS HERNIA W MESH 08/25/07 - REPAIR ING HERNIA,5+Y/O,REDUCIBL LEFT Hernia repair, inguinal - REVISE SECONDARY VARICOSITY 09/21/02,03/19/05 Varicose Vein Surgery - STEREO LOC FOR BRST NDLE BX LT -08 LEFT - TOTAL ABDOM HYSTERECTOMY Hysterectomy, DEL HAS OVARIES - ULTRASOUND OF THE THYROID 01/27/06 - UNLISTED LAPAROSCOPY PROCEDURE, HER 08/25/07 ventral ALLERGIES Tetracycline MEDICATIONS Valsartan-hydroCHLOROthiazide 320-25 mg per tablet oxyCODONE immediate release (PERCOLONE) 5 mg immediate release tablet Take 1 tablet by mouth every 8 hours as needed for Pain. polyethylene glycol 3350 (MIRALAX, GLYCOLAX) 17 gram/dose powder Using measuring cap mix 17gm in water and drink up to 3 times daily as needed for constipation hydrochlorothiazide (HYDRODIURIL, ESIDRIX) 25 mg tablet Take 1 tablet by mouth once daily. omeprazole (PRILOSEC) 20 mg capsule Take 1 capsule by mouth twice daily ketoconazole (NIZORAL) 2 % cream Apply 1 application to affected area twice daily. APPLY TOPICALLY ONCE DAILY FOR 2 WEEKS Bisacodyl (DULCOLAX) 5 mg tab Take 3 tablets by mouth as needed. 2 tablets with lunch, 1 tablet with dinner acetaminophen (TYLENOL) 325 mg tablet Take 2 tablets by mouth every 6 hours. simvastatin (ZOCOR) 20 mg tablet Take 1 tablet by mouth daily at bedtime. multivitamins(DAILY MULTIVITAMIN TAB) Take one(1) tablet daily BY MOUTH. aspirin(ADULT LOW DOSE ASPIRIN 81 MG TAB, DELAYED RELEASE) Take one(1) tablet daily BY MOUTH. methylPREDNISolone (MEDROL, CAITLIN,) 4 mg Dose-Pack Follow dosing instructions, take with food. [id number] (BMX 1:1:1) 1:1:1 liqd Mix in equal amounts - 1 T every 2hrs as needed for mouth pain, Swish/swallow or expectorate. (8oz) triamcinolone (KENALOG) 0.025 % cream Apply 1 application to affected area twice daily. metFORMIN (GLUCOPHAGE) 500 mg tablet Take 1 tablet by mouth twice daily with meals. FAMILY HISTORY Problem Relation Age of Onset - Cancer Mother spine - Diabetes Father age 43 of complications (? type 1) - other (cornea prob. [Other]) Sister - other (vein varicosities [Other]) Sister - Breast Cancer Sister age 44 - Colon Cancer Other none - Coronary Artery Disease Other none Social History Tobacco Use - Smoking status: Current Every Day Smoker Packs/day: 0.10 Years: 40.00 Pack years: 4.00 Types: Cigarettes - Smokeless tobacco: Never Used - Tobacco comment: 2-3 cigarettes a day Substance Use Topics - Alcohol use: Yes Comment: occasionally - Drug use: No Objective Physical Exam Vitals and nursing note reviewed. Constitutional: Appearance: Normal appearance. Cardiovascular: Rate and Rhythm: Normal rate. Pulmonary: Effort: Pulmonary effort is n (more content not included)... [facility] Progress note 06-23-2021 Note Date & Type Note Facility 06-23-2021 Note HNO ID: [id number] Author: Dorian Hubbard APRN.PASCUAL Service: ? Author Type: Nurse Practitioner Type: Progress Notes Filed: 06/23/2021 8:38 AM Note Text: Triaged patient in office today. 8/10 abdominal pain that started last night as well as 12-15 episodes of vomiting since last night. Denies having any fever, chills, blood in the stool, or signs of dehydration. Reports having a complex history of GI obstructions. Recommend she go to ER for further evaluation and treatment. She acknowledged and her daughter will drive her to [facility]. Dorian Hubbard APRN.HEAD SAMPLER [facility] Summary Purpose Family History No Family History Records Found Advance Directives No Advanced Directives Records Found Additional Source Comments INFORMATION SOURCE (unrecogn ized section and content) FOR RECORDS PERTAINING TO PATIENTS WHO ARE OR HAVE BEEN ENROLLED IN A CHEMICAL DEPENDENCY/SUBSTANCEABUSE PROGRAM, SOME INFORMATION MAY BE OMITTED. This clinical summary was aggregated from multiple sources. Caution should be exercised in using it in the provision of clinical care. This summary normalizes information from multiple sources, and as a consequence, information in this document may materially change the coding, format and clinical context of patient data. In addition, data may be omitted in some cases. CLINICAL DECISIONS SHOULD BE BASED ON THE PRIMARY CLINICAL RECORDS. [employer] provides no warranty or guarantee of the accuracy or completeness of information in this document.
== END | disposition home or self-care (01) ==
LOC: BFHLAB 13:10
PROVIDERS: PCP Family Medicine; Visit Provider Family Medicine
DX: I10 Essential (primary) hypertension (principal); M10.9 Gout, unspecified; K21.9 Gastro-esophageal reflux disease without esophagitis
CPT/HCPCS: 36415; 80053; 84550; 85025

== ENCOUNTER → 2024-05-13 | Outpatient (CLI) | payer MEDICARE, OTHER, SELFPAY ==
[2024-05-13 13:25] LABS: Amphetamine Urine VISTA NEGATIVE (<1000 ng/mL); Barbiturate Urine VISTA NEGATIVE (< 200 ng/mL); Benzodiazepine Urine VISTA NEGATIVE (< 200 ng/mL); Cocaine Urine VISTA NEGATIVE (< 300 ng/mL); Ecstacy Urine VISTA NEGATIVE (< 500 ng/mL); Methadone Urine VISTA NEGATIVE (< 300 ng/mL); PCP Urine VISTA NEGATIVE (< 25 ng/mL); THC Urine VISTA NEGATIVE (< 50 ng/mL); Vista UDS pH Range 5
== END | disposition home or self-care (01) ==
LOC: LAB 11:35
PROVIDERS: PCP Family Medicine; Referring Provider Anesthesiology Pain Medicine; Visit Provider Anesthesiology Pain Medicine
DX: F11.20 Opioid dependence, uncomplicated (principal)
CPT/HCPCS: 80307

== ENCOUNTER → 2024-06-25 | Outpatient (CLI) | payer MEDICARE, OTHER, SELFPAY ==
[2024-06-25 11:15] LABS: Absolute Lymphocyte Count 1.73 X10^3/uL (0.83-4.51); Absolute Neutrophil Count 3.4 X10^3/uL (2.0-7.7); Basophil# 0.03 X10^3/uL; Basophil% 0.5 % (0-1); Eosinophil# 0.16 X10^3/uL; Eosinophils% 2.7 % (0-5); Hematocrit 39.1 % (37-47); Hemoglobin 12.1 g/dL (12.0-15.0); Lymphocyte # 1.73 X10^3/ul (0.83-4.51); Lymphocyte % 29.7 % (19-41); Mean Corp Hgb Conc 30.9 g/dL (32-36); Mean Corpuscular Hgb 28.5 pg (27.0-32.0); Mean Corpuscular Volume 92.2 fL (81-99); Mean Platelet Vol. 10.1 fl (6.2-12.0); Monocyte# 0.51 X10^3/uL; Monocyte% 8.7 % (0-10); NRBC Flagged by Analyzer 0 % (0-5); Neutrophil # 3.38 X10^3/uL (2.7-7.7); Neutrophil % 58.1 % (47-70); Platelet Count 234 K/mm3 (150-450); RBC Distribution Width CV 15.1 % (11.6-14.6); Red Blood Count 4.24 M/mm3 (4.2-5.4); White Blood Count 5.8 K/mm3 (4.4-11.0)
[2024-06-25 12:00] LABS: ALB/GLOB Ratio 1.2 RATIO (0.9-2.4); AST(SGOT) 13 U/L (15-37); Alanine Aminotransfer ALT/SGPT 17 U/L (13-56); Albumin, Serum 3.8 g/dL (3.2-5.0); Alkaline Phosphatase 60 U/L (45-117); Anion Gap 6 (5-15); BUN 26 mg/dL (7-18); BUN/Creat Ratio 26.2 RATIO (10-20); Calcium,Total 9.2 mg/dL (8.5-10.1); Chloride 108 mmol/L (98-107); Creatinine, Serum 0.99 mg/dL (0.55-1.02); EST Glomerular Filtration Rate 57 mL/min (>60); Est Glom Filt Rate - Afr Amer 69 mL/min (>60); Globulin 3.3 g/dL (2.2-4.2); Glucose 101 mg/dL (74-106); Protein, Total 7.1 g/dL (6.4-8.2); Sodium Level 140 mmol/L (136-145); Uric Acid 3.6 mg/dL (2.6-6.0)
== END | disposition home or self-care (01) ==
LOC: LAB 10:17
PROVIDERS: PCP Family Medicine; Referring Provider Family Medicine; Visit Provider Family Medicine
DX: I10 Essential (primary) hypertension (principal); M10.9 Gout, unspecified; K21.9 Gastro-esophageal reflux disease without esophagitis
CPT/HCPCS: 36415; 80053; 84550; 85025

== ENCOUNTER → 2024-09-30 | Outpatient (CLI) | payer MEDICARE, OTHER, SELFPAY ==
[2024-09-30 16:04] LABS: OXY Internal Control LINE = VALID (VALID); Oxycodone Drug Screen Positive (<100 ng/mL)
[2024-09-30 16:09] LABS: Amphetamine Urine VISTA NEGATIVE (<1000 ng/mL); Barbiturate Urine VISTA NEGATIVE (< 200 ng/mL); Benzodiazepine Urine VISTA NEGATIVE (< 200 ng/mL); Cocaine Urine VISTA NEGATIVE (< 300 ng/mL); Ecstacy Urine VISTA NEGATIVE (< 500 ng/mL); Methadone Urine VISTA NEGATIVE (< 300 ng/mL); PCP Urine VISTA NEGATIVE (< 25 ng/mL); THC Urine VISTA NEGATIVE (< 50 ng/mL); Vista UDS pH Range 4
== END | disposition home or self-care (01) ==
LOC: LAB 14:20
PROVIDERS: PCP Family Medicine; Referring Provider Anesthesiology Pain Medicine; Visit Provider Anesthesiology Pain Medicine
DX: F11.20 Opioid dependence, uncomplicated (principal)
CPT/HCPCS: 80307; 80365; G0480

== ENCOUNTER → 2024-12-24 | Outpatient (CLI) | payer MEDICARE, OTHER, SELFPAY ==
[2024-12-24 11:14] LABS: Absolute Lymphocyte Count 2.19 X10^3/uL (0.83-4.51); Absolute Neutrophil Count 4.1 X10^3/uL (2.0-7.7); Basophil# 0.03 X10^3/uL; Basophil% 0.4 % (0-1); Eosinophil# 0.14 X10^3/uL; Hematocrit 39.1 % (37-47); Hemoglobin 12.6 g/dL (12.0-15.0); Lymphocyte # 2.19 X10^3/ul (0.83-4.51); Lymphocyte % 31.2 % (19-41); Mean Corp Hgb Conc 32.2 g/dL (32-36); Mean Corpuscular Hgb 29.6 pg (27.0-32.0); Mean Corpuscular Volume 91.8 fL (81-99); Mean Platelet Vol. 9.9 fl (6.2-12.0); Monocyte# 0.59 X10^3/uL; Monocyte% 8.4 % (0-10); NRBC Flagged by Analyzer 0 % (0-5); Neutrophil # 4.06 X10^3/uL (2.7-7.7); Neutrophil % 57.7 % (47-70); Platelet Count 219 K/mm3 (150-450); RBC Distribution Width CV 14.7 % (11.6-14.6); RBC Distribution Width SD 49.3 fl (35.1-43.9); Red Blood Count 4.26 M/mm3 (4.2-5.4)
[2024-12-24 11:42] LABS: ALB/GLOB Ratio 1.6 RATIO (0.9-2.4); AST(SGOT) 17 U/L (<=31); Alanine Aminotransfer ALT/SGPT 9 U/L (<=34); Albumin, Serum 4.3 g/dL (3.4-4.8); Alkaline Phosphatase 61 U/L (35-104); Anion Gap 11 (5-15); BUN 19 mg/dL (4-19); BUN/Creat Ratio 18.5 RATIO (10-20); Calcium,Total 9.3 mg/dL (7.6-11.0); Carbon Dioxide 25.7 mmol/L (21.0-32.0); Chloride 104 mmol/L (98-108); Creatinine, Serum 1.03 mg/dL (0.70-1.20); EST Glomerular Filtration Rate 55 (>60); Globulin 2.6 g/dL (2.2-4.2); Glucose 98 mg/dL (70-99); Potassium 3.9 mmol/L (3.3-5.1); Protein, Total 6.8 g/dL (5.9-8.4); Sodium Level 141 mmol/L (133-145); Total Bilirubin 0.93 mg/dL (0.00-1.30)
[2024-12-24 13:27] LABS: Uric Acid 3.3 mg/dL (2.6-6.0)
== END | disposition home or self-care (01) ==
LOC: LAB 10:40
PROVIDERS: PCP Family Medicine; Referring Provider Family Medicine; Visit Provider Family Medicine
DX: I10 Essential (primary) hypertension (principal); M10.9 Gout, unspecified; K21.9 Gastro-esophageal reflux disease without esophagitis
CPT/HCPCS: 36415; 80053; 84550; 85025

== ENCOUNTER → 2025-06-28 | Outpatient (CLI) | payer MEDICARE, OTHER, SELFPAY ==
[2025-06-28 15:32] LABS: Hematocrit 39.2 % (37-47); Hemoglobin 12.8 g/dL (12.0-15.0); Immature Granulocytes Count 0.020 X10^3/uL (0.0-0.0); Mean Corp Hgb Conc 32.7 g/dL (32-36); Mean Corpuscular Volume 92.7 fL (81-99); Mean Platelet Vol. 10.1 fl (6.2-12.0); NRBC Flagged by Analyzer 0 % (0-5); Platelet Count 221 K/mm3 (150-450); RBC Distribution Width CV 15.1 % (11.6-14.6); RBC Distribution Width SD 51.6 fl (35.1-43.9); Red Blood Count 4.23 M/mm3 (4.2-5.4); White Blood Count 5.9 K/mm3 (4.4-11.0)
[2025-06-28 18:19] LABS: AST(SGOT) 18 U/L (<=31); Alanine Aminotransfer ALT/SGPT 12 U/L (<=34); Albumin, Serum 4.2 g/dL (3.4-4.8); Alkaline Phosphatase 57 U/L (35-104); Anion Gap 11 (5-15); BUN 23 mg/dL (4-19); BUN/Creat Ratio 24.3 RATIO (10-20); Calcium,Total 9.4 mg/dL (7.6-11.0); Carbon Dioxide 24.9 mmol/L (21.0-32.0); Chloride 104 mmol/L (98-108); Globulin 2.5 g/dL (2.2-4.2); Glucose 96 mg/dL (70-99); Potassium 4.7 mmol/L (3.3-5.1); Uric Acid 3.7 mg/dL (2.6-6.0); Vitamin B12 182 pg/mL (180-914); Vitamin D,25 Hydroxy 33.9 ng/mL (30-100)
== END | disposition home or self-care (01) ==
LOC: BFHLAB 11:12
PROVIDERS: PCP Family Medicine; Visit Provider Family Medicine
DX: M10.9 Gout, unspecified (principal); K21.9 Gastro-esophageal reflux disease without esophagitis; I10 Essential (primary) hypertension; R41.3 Other amnesia; E55.9 Vitamin D deficiency, unspecified
CPT/HCPCS: 36415; 80053; 82306; 82607; 84443; 84550; 85025

== ENCOUNTER → 2025-07-05 | Outpatient (CLI) | payer MEDICARE, OTHER, SELFPAY ==
[2025-07-05 14:55] LABS: Barbiturate Urine NEGATIVE (< 200 ng/mL); Benzodiazepine Urine NEGATIVE (< 200 ng/mL); PCP Urine NEGATIVE (< 25 ng/mL); THC Urine NEGATIVE (< 50 ng/mL)
== END | disposition home or self-care (01) ==
LOC: LAB 13:39
PROVIDERS: PCP Family Medicine; Referring Provider Anesthesiology Pain Medicine; Visit Provider Anesthesiology Pain Medicine
DX: F11.20 Opioid dependence, uncomplicated (principal)
CPT/HCPCS: 80307